=== PATIENT | male | born 1950 | race Caucasian/White ===

== ENCOUNTER 2024-09-23 09:39 | Outpatient (CLI) | payer OTHER, SELFPAY ==
--- OUTSIDE RECORDS SUMMARY | 2024-09-23 07:52 | XMS_ITS ---
[place] MED NUTRITION [place] SUB[place] [facility] Encounter Summary Created on: September 23, 2024 MILI SANTAMARIA : 1950 Sex: Male Author Name [facility] [place] [facility] [place] Address [address] [place] [address] Care Team Providers Care Tiltrotor Crew Chief Name Role Phone ROBBIE ANAY Primary Care Provider Riccardo rainey Insurance Providers: All historical and current Section Date Range: From patient's date of to the date document was created. This section includes the names of all active insurance providers for the patient. Insurance Provider Type of Coverage Plan Name Start of Policy Coverage End of Policy Coverage Group Number Member ID Insurance Provider's Telephone Number Policy Nicole's Name Patient's Relationship to Policy Nicole MEDICARE (WNR) MEDICARE (M) PART A Jul 07, 2013 PART A [id number] [phone] ARLETH SANTAMARIA PATIENT MEDICARE (WNR) MEDICARE (M) PART A Jul 07, 2013 PART A [id number] [phone] ARLETH SANTAMARIA PATIENT Selected Encounter This section includes the information on record at [place] for the Encounter. Date/Time Encounter Type Encounter Description Reason Provider Source Jul 10, 2024 11:30 AM MED NUTRITION INDIV SUBSEQ TELEPHONE/ANALI FLOYD ICD-10-CM E11.9 Type 2 diabetes mellitus without complications TIFFANY NAIR Encounter Template Text not used by [facility] Assessments - Encounter Diagnoses This section includes the primary and secondary diagnoses documented for the Encounter. Date/Time Primary/Secondary Diagnosis Diagnosis Name Provider Source Jul 10, 2024 11:30 AM PRIMARY Type 2 diabetes mellitus without complications TIFFANY NAIR [facility] Jul 10, 2024 11:30 AM SECONDARY Dietary counseling and surveillance TIFFANY NAIR [facility] Plan of Treatment: Future Appointments (+ 6 months) and Future Tests (+/- 45 days) The Plan of Treatment section includes future care activities for the patient from all [place] treatmentfacilities. This section includes future appointments and future orders which are active, pending or scheduled. Future Appointments This section includes appointments that were scheduled to occur 6 months from the date of the Encounter, up to a maximum of 20 appointments. The data comes from all [place] treatment facilities. Appointment Date/Time Appointment Type Appointme nt Facility Name Oct 12, 2024 08:00 AM AMBULATORY - MEDICINE [facility] Oct 12, 2024 08:40 AM AMBULATORY - MEDICINE [facility] Encounter Notes: All associated encounter notes This section contains the clinical notes associated to the Encounter. Date/Time Encounter Note(s) Provider Source Jul 10, 2024 10:31 AM NUTRITION NOTE: LOCAL TITLE: NUTRITION OUTPT PROGRESS NOTE STANDARD TITLE: NUTRITION NOTE DATE OF NOTE: JUL 10, 2024@10:31 ENTRY DATE: JUL 10, 2024@10:31:12 AUTHOR: TIFFANY NAIR EXP COSIGNER: URGENCY: STATUS: COMPLETED Visit Information: Delivery Method: Telephone Visit Type: Follow-up Visit Reason for visit: T2DM Time spent with [facility]: 18 minutes ASSESSMENT: states he switched to yogurt in AM to increase protein and is eating more salads. Tries to get out of the house between meals to avoid snacking. Continues to eat dessert most nights but choosing smaller portions. Asks for print versions of easy, diabetes-friendly recipes. Diet Recall: Meal 1: oatmeal, regular yogurt Meal 2: leftovers <or> sandwich, banana Meal 3: 3-4 oz meat, 1.5 cup potatoes, 1/2 plate salad Snack: 2/3 cup ice cream 3-4x/week Fluids: 6-8 cups black coffee, 2 quarts water w/electrolytes, occasional pop Labs HEMOGLOBIN A1C 8.3 H (04/13/24) Height: 70 in [177.8 cm] (03/07/2023 10:19) Weight: Measurement DT WEIGHT LB(KG)[BMI] 04/10/2024 11:07 199(90.26)[29*] Malnutrition Assessment (per AND/ASPEN Consensus Statement, 2012): Dietitian does not suspect malnutrition at this time, therefore, physical assessment not conducted Estimated Nutrient Intake: Carbohydrates 45g/meal, 30-45g/snack Comparative Standards: Carbohydrates 45g/meal, 0-15g/snack DIAGNOSIS: Active nutrition diagnosis Problem: Excessive carbohydrate intake Etiology: eating dessert after dinner most nights Signs/Symptoms: pt eating 30-45g carb/snack, A1c 8.3 INTERVENTION: Nutrition Prescription: carbohydrate-controlled diet Carbohydrate-modified diet: o Commended on progress made to reduce carbs in diet and encouraged to continue o Recommended having Bolivian yogurt instead of regular and educated on difference in carb and protein content o Encouraged reduce frequency of desserts and/or have small portion with a meal rather than several hours after to avoid blood glucose spike o Mailed sample recipes from [place] website per request Goal: 1 - will switch to Bolivian yogurt at breakfast 2 - [facility] will limit portion of ice cream to </= 30g carb equivalent Patient Education of Treatment Plan: Patient indicates readiness to learn, verbalizes understanding, agreement and satisfaction with the treatment plan. Denies further questions. MONITORING & EVALUATION: Goal(s): 1 - Hgb A1c <8.3 at next check Status: Goal not met, no new labs, ongoing 2 - Carbohydrate estimated intake in one meal: 45g by follow-up Status: Goal met 3 - Carbohydrate estimated intake in one meal (snack): <30g by follow-up Status: Some progress toward goal, ongoing Follow Up: [facility] declined to schedule follow-up today. Provided designer/writer's contact information and encouraged him to call with questions or if desires follow-up appointment in the future. /zach/ TIFFANY NAIR, MS, RDN, CDCES REGISTERED DIETITIAN Signed: 07/10/2024 12:59 TIFFANY NAIR [facility]
--- OUTSIDE RECORDS SUMMARY | 2024-09-23 07:52 | XMS_ITS | Encounter Summary ---
Author Name [facility] [place] [place] Organization [facility] [place] Address [address] [place] [address] Care Team Providers Care Senior Compliance Analyst Name Role Phone ANAY AVALOS Primary Care Provider Unavailabl redd Insurance Providers: All historical and current Section [...] PART A Jul 07, 2013 PART A [id number] [phone] ARLETH ACOSTA PATIENT MEDICARE (WNR) MEDICARE (M) PART A Jul 07, 2013 PART A [id number] 16A ARLETH ACOSTA PATIENT Selected Encounter This section includes the information on record at [place] for the Encounter. Date/Time Encounter Type Encounter Description Reason Provider Source Jul 16, 2024 09:56 AM Outpatient Encounter TELEPHONE/MEDICIN E ICD-10-CM I48.0 Paroxysmal atrial fibrillation YAS OCASIO [facility] Encounter Template Text not used by [place] Assessments - Encounter Diagnoses This section includes the primary and secondary diagnoses documented for the Encounter. Date/Time Primary/Secondary Diagnosis Diagnosis Name Provider Source Jul 16, 2024 09:56 AM PRIMARY Paroxysmal atrial fibrillation YAS OCASIO [facility] Jul 16, 2024 09:56 AM SECONDARY Atherosclerosis of CABG w/o angina pectoris YAS OCASIO [facility] Jul 16, 2024 09:56 AM SECONDARY Nonrheumatic aortic (valve) stenosis YAS OCASIO [facility] Plan of Treatment: Future Appointments (+ 6 months) and Future Tests (+/- 45 days) The Plan of Treatment section includes future care [facility] for the [facility] [place] [facility] This section includes future appointments and future orders which are active, pending or scheduled. Future Appointments This section includes appointments that were scheduled to occur 6 months from the date of the Encounter, up to a maximum of 20 appointments. The data comes from all [facility]. Appointment Date/Time Appointment Type Appointme nt Facility Name Oct 12, 2024 08:00 AM AMBULATORY - MEDICINE [facility] Oct 12, 2024 08:40 AM AMBULATORY - MEDICINE [facility] Social History: Smoking Status (Most current) and Tobacco Use (All prior to encounter date) This section includes the most current, and the historical, smoking and tobacco- related health factors from the [place] facility where the Encounter took place. Current Smoking Status This section includes the most current smoking, or tobacco-related health factor, from the [place] facility where the Encounter took place. Date/Time Current Smoking Status Comment Facil ity Mar 29, 2016 05:20 AM INPT NO TOBACCO USE IN LAST 30 D [facility] Encounter Notes: All associated encounter notes This section contains the clinical notes associated to the Encounter. Date/Time Encounter Note(s) Provider Source Jul 16, 2024 09:56 AM CARDIOLOGY CONSULT : LOCAL TITLE: CARDIAC CONSULT STANDARD TITLE: CARDIOLOGY CONSULT DATE OF NOTE: JUL 16, 2024@09:56 ENTRY DATE: JUL 16, 2024@09:56:40 AUTHOR: YAS OCASIO EXP COSIGNER: URGENCY: STATUS: COMPLETED TELEPHONE CONSULTATION Reason for consult: low-blood pressure HPI/ROS Mr. Acosta is a 74 year-old referred for low blood pressure. Pertinent PMH includes carpal tunnel syndrome, HLN, Aortic stenosis s/p AVR/CABG (2015), PAF, DM type II, and peripheral neuropathy. CARDIAC HISTORY: . Aortic stenosis s/p AVR (2015) with 25 mm Cooper pericardial bioprosthesis . CAD s/p CABG ( [facility] 2015) . Paroxysmal atrial fibrillation Spoke with Mr. Acosta and his Mariia via telephone conversation. On May 11, 2024, Cindi was seen in the ED at [facility]. Per report (no records are available), he had low blood pressure of 108/60. He was feeling fatigued. He was told to decrease the metoprolol from 100 mg bid to 50 mg bid. In addition, Amlodipine was decreased from 10 mg to 5 mg. When he contacted his PCP, Amlodipine was discontinued. Today, Mr. Acosta reports doing well. Mariia, tells me his has more energy and is more alert. Home BP recordings show: 117/70 HR 58, 126/72 HR 61. He continues to be active. Denies chest pain or dyspnea with exertion. Denies lightheadedness or dizziness. Denies palpitations. REVIEW OF SYSTEMS: Constitutional: Weight stable, denies fatigue Eyes: Denies visual changes. Ear, nose, mouth, throat: No complaints. Cardiovascular: Chest pain as described in HPI. Denies palpitations, Respiratory: Shortness of breath/CAMPBELL as described in HPI. Denies cough, pleuritic pain, orthopnea or PND Gastrointestinal: Appetite good, denies heartburn and indigestion. Urinary: Denies incontinence, frequency, urgency, nocturia, pain, or discomfort. Skin: No rashes or lesions. Neurological: Denies lightheadedness or dizziness. Denies syncope or pre-syncope. Psychiatric: Denies memory loss or depression. Mood pleasant. Allergies: TRAMADOL (Apr 05, 2016) Past Medical History - Computerized Problem list is source for: Active problems - Computerized Problem List is the source for the followin. Allergic rhinitis (SNOMED CT 46758058) 2. Carpal tunnel syndrome (SNOMED CT 32213509) 3. Hyperlipidemia 4. Aortic stenosis - aortic valve replacement 5. Paroxysmal atrial fibrillation 6. History of placement of stent for coronary artery disease 7. History of urinary tract infection 8. Diabetes Mellitus Type 2 ([facility] [id number]) 9. Exposure to potentially hazardous substance ([facility] [id number]) - Entered through [facility] Documentation Initiative 10. Peripheral sensory neuropathy due to type 2 diabetes mellitus - Neuropathy in bilateral feet and bilateral hands. Medications: Active Outpatient Medications (including Supplies): Active Outpatient Medications Status 1) AMOXICILLIN 500MG CAP TAKE FOUR CAPSULES BY MOUTH ACTIVE ONCE 60 MINUTES PRIOR TO DENTAL PROCEDURE. 2) APIXABAN 5MG TAB TAKE ONE TABLET BY MOUTH TWICE A DAY ACTIVE TO TREAT AND/OR PREVENT BLOOD CLOTS 3) ATORVASTATIN CALCIUM 20MG TAB TAKE ONE TABLET BY ACTIVE MOUTH EVERY DAY FOR CHOLESTEROL 4) CETIRIZINE HCL 10MG TAB TAKE ONE TABLET BY MOUTH ACTIVE EVERY DAY FOR ALLERGIES 5) EMPAGLIFLOZIN 25MG TAB TAKE ONE-HALF TABLET BY MOUTH ACTIVE EVERY MORNING FOR DIABETES 6) FOLIC ACID 1MG TAB TAKE ONE TABLET BY MOUTH DAILY ACTIVE 7) GABAPENTIN 300MG CAP TAKE ONE CAPSULE BY MOUTH AT ACTIVE BEDTIME FOR SLEEP, FOR NEUROPATHY 8) LIDOCAINE 5% OINT APPLY MODERATE AMOUNT TOPICALLY ACTIVE TWICE A DAY NEEDED FOR INCISIONAL AREA PAIN 9) METOPROLOL TARTRATE 50MG TAB TAKE ONE TABLET BY MOUTH ACTIVE EVERY 12 HOURS FOR BLOOD PRESSURE 10) NYSTATIN 416933 UNT/GM CREAM APPLY THIN LAYER ACTIVE TOPICALLY TWICE A DAY FOR YEAST INFECTION EXTERNAL USE ONLY 11) TAMSULOSIN HCL 0.4MG CAP TAKE ONE CAPSULE BY MOUTH ACTIVE EVERY DAY FOR PROSTATE Recent Available Lab Results: - CREATININE 0.8 (04/13/24) - UREA NITROGEN 23 (04/13/24) - SODIUM 138 (04/13/24) - CHLORIDE 107 (04/13/24) - POTASSIUM 4.0 (04/13/24) - CO2 24 (04/13/24) - GLUCOSE 213 H (04/13/24) - No data available - TSH ____ - HEMOGLOBIN A1C 8.3 H (04/13/24) - INR - NONE FOUND Lipid Profile: - CHOLESTEROL 130 (04/13/24) - HDL 43 (04/13/24) - LDL CALCULATION 72 (04/13/24) - TRIGLYCERIDE____ - Collection DT Spec WBC HGB HCT PLT MCV 04/13/2024 09:12 BLOOD 5.70 14.8 44.9 146 L 93.9 11/06/2023 09:42 BLOOD 7.03 16.5 49.2 174 93.4 DIAGNOSTICS/IMAGING/SCORING EK. Normal sinus rhythm Echocardiogram: Summary: 1. Left ventricular ejection fraction, by visual estimation, is 55 to 60%. 2. Mild to moderate concentric left ventricular hypertrophy. 3. Moderately dilated left atrium. 4. Pulmonary hypertension is mild. 5. Bioprosthetic valve in the aortic position with 9 mmHg gradient and no AI. 6. Similar findings were reported in 2016. Impression: Cardiology was asked to see this 74 year-old patient for low blood pressure. Medford's cardiac history includes s/p CABG/AVR w/bioprostetic valve in 2016. Also has paroxysmal Abib on anticoagulation. He has been told in the past he could stop his aspirin. However, he tells me he elected to continue as he feel better taking the aspirin. Since, lowering his blood pressure medication, his symptoms have improved. Reports feeling more alert and having more energy. #1 CAD s/p CABG (2016) #2 AVR w/bioprosethic valve (2016) #3 Atrial fibrillation/Aflutter - post-op (04/2016) Reports heart rates between 58-61. Given lower heart rates we had a discussion regarding lower his metoprolol vs continuing the current dose. The fact he is currently asymptomatic, would favor leaving the metoprolol at the current dose. But after further discussion, we (, and provider) decided to decrease the metoprolol to 25 mg bid. They will continue to track his blood pressure and HR. They will call the clinic in 1 week to discuss the readings. If blood pressure increase (>130's), they will restart the higher dose of metoprolol. Given his low BP issues have resolved with the decrease in medication, he is asymptomatic from a cardiac standpoint, further cardiology evaluation is unnecessary. and Mrs. Acosta agreed with this plan. Today's consult and recommendations discussed with him in lay-terms and he is in agreement with the above plan. Thank you for referring this to cardiology. *Total Time Spent: 120+ minutes. Chart review prior to visit, direct patient care, review of testing, coordination of care, and documentation of encounter. /zach/ ASTON DIXON CARDIOLOGY NURSE PRACTITIONER Signed: 07/16/2024 10:31 YAS OCASIO [facility]
--- OUTSIDE RECORDS SUMMARY | 2024-09-23 07:52 | XMS_ITS | Encounter Summary ---
Author Name [facility] [place] Address [address] [place] [address] Care Team Providers Care Editor City Name Role Phone ROBBIEANAY ISABEL Primary Care Provider Unavailabl e Insurance Providers: All historical and current Section [...] PART A Jul 07, 2013 PART A [id number] [phone] ARLETH SANTAMARIA PATIENT MEDICARE (WNR) MEDICARE (M) PART A Jul 07, 2013 PART A [id number] ARLETH SANTAMARIA PATIENT Selected Encounter This section includes the information on record at [place] for the Encounter. Date/Time Encounter Type Encounter Description Reason Pro vider Source Jul 08, 2024 11:30 AM Outpatient Encounter TELEPHONE/ANCILLARY IHE Encounter Template Text not used by [facility] Plan of Treatment: Future Appointments (+ 6 months) and Future Tests (+/- 45 days) The Plan of Treatment section includes future care activities for the patient from all [place] treatmentfacilities. This section includes future appointments and future orders which are active, pending or scheduled. Future Appointments This section includes appointments that were scheduled to occur 6 months from the date of the Encounter, up to a maximum of 20 appointments. The data comes from all [place] treatment facilities. Appointment Date/Time Appointment Type Appointme nt Facility Name Jul 10, 2024 11:30 AM AMBULATORY - NONE [facility] Oct 12, 2024 08:00 AM AMBULATORY - MEDICINE [facility] Oct 12, 2024 08:40 AM AMBULATORY - MEDICINE [facility] Encounter Notes: All associated encounter notes This section contains the clinical notes associated to the Encounter. Date/Time Encounter Note(s) Provider Source Jul 08, 2024 11:51 AM NO SHOW NOTE: LOCAL TITLE: NO SHOW/CANCELLATION CLINIC NOTE STANDARD TITLE: NO SHOW NOTE DATE OF NOTE: JUL 08, 2024@11:51 ENTRY DATE: JUL 08, 2024@11:51:10 AUTHOR: TIFFANY NAIR EXP COSIGNER: URGENCY: STATUS: COMPLETED SUBJECT: nutrition Patterson not seen for scheduled appointment due to: No Show Appointment Rescheduled: No RD called to conduct nutrition appointment x2, no answer. RD left with call back number. If Patterson contacts the clinic or call center to reschedule, please schedule in one of the following clinics per preference: Face to face: [facility] 1 By phone: [facility] TELEPHONE 1 [facility]: [facility] 1 /zach/ TIFFANY NAIR, MS, RDN, CDCES REGISTERED DIETITIAN Signed: 07/08/2024 12:02 Receipt Acknowledged By: 07/09/2024 08:34 /es/ [facility] 07/09/2024 07:26 /es/ TIFFANY [facility]
--- OUTSIDE RECORDS SUMMARY | 2024-09-23 07:52 | XMS_ITS | Encounter Summary ---
Author Name [facility] [place] Address [address] [place] [address] Care Team Providers Care Vacuum Tank Tender Name Role Phone ANAY AVALOS Primary Care Provider Unavailabl e Insurance Providers: [...] PART A Jul 07, 2013 PART A [id number] [phone] ARLETH SANTAMARIA PATIENT MEDICARE (WNR) MEDICARE (M) PART A Jul 07, 2013 PART A [id number] ARLETH SANTAMARIA PATIENT Selected Encounter This section includes the information on record at [place] for the Encounter. Date/Time Encounter Type Encounter Description Reason Pro vider Source Aug 06, 2024 09:27 AM Outpatient Encounter TELEPHONE PRIMARY CARE IHE Encounter Template Text not used by [place] Plan of Treatment: Future Appointments (+ 6 [...] 20 appointments. The data comes from all [place] treatment facilities. Appointment Date/Time Appointment Type Appointme nt Facility Name Oct 12, 2024 08:00 AM AMBULATORY - MEDICINE [facility] Oct 12, 2024 08:40 AM AMBULATORY - MEDICINE [facility] Social History: Smoking Status (Most current) and Tobacco Use (All prior to encounter date) This section includes the most current, and the historical, smoking and tobacco- related health factors from the [facility] facility where the Encounter took place. Current Smoking Status This section includes the most current smoking, or tobacco-related health factor, from the [facility] facility where the Encounter took place. Date/Time Current Smoking Status Comment Facil ity Mar 29, 2016 05:20 AM INPT NO TOBACCO USE IN LAST 30 D [facility] Encounter Notes: All associated encounter notes This section contains the clinical notes associated to the Encounter. Date/Time Encounter Note(s) Provider Source Aug 06, 2024 09:27 AM REPORT OF CONTACT: LOCAL TITLE: PATIENT CONTACT NOTE STANDARD TITLE: REPORT OF CONTACT DATE OF NOTE: AUG 06, 2024@09:27 ENTRY DATE: AUG 06, 2024@09:27:33 AUTHOR: LENNY MENDEZ EXP COSIGNER: URGENCY: STATUS: COMPLETED Patient contact Name of : HINAMILI BUENROSTRO Name/Relationship of Contact if other than : Date & Time of Contact: Jul@09:27 Type of Contact: Telephone Reason for Contact: Requesting to have PCP at the [facility]. Moss Picker explained that [facility] has specialty care available and to please call the clinic at number provided to review his needs. /zach/ LENNY MENDEZ REGISTERED NURSE Signed: 08/06/2024 09:30 LENNY MENDEZ [facility]
--- OUTSIDE RECORDS SUMMARY | 2024-09-23 07:52 | XMS_ITS | Encounter Summary ---
Author Name [facility] [place] [facility] [place] [facility] [place] Address [address] [place] [address] Care Team Providers Care Customer Resolution Specialist Name Role Phone TAMMIE FISHERYA Primary Care Provider Unavailclovis rainey Insurance Providers: All historical and current [...] PART A Jul 07, 2013 PART A [id number] [phone] ARLETH SANTAMARIA PATIENT MEDICARE (WNR) MEDICARE (M) PART A Jul 07, 2013 PART A [id number] ARLETH SANTAMARIA PATIENT Selected Encounter This section includes the information on record at [place] for the Encounter. Date/Time Encounter Type Encounter Description Reason Provider Source Jul 03, 2024 10:45 AM OFF/OP EST FEBRUARY X REQ PHY/QHP PRIMARY CARE/MEDICINE ICD-10-CM I95.9 Hypotension, unspecified HELGET,MARYLIN E L IHE Encounter Template Text not used by [place] Assessments - Encounter Diagnoses This section includes the primary and secondary diagnoses documented for the Encounter. Date/Time Primary/Secondary Diagnosis Diagnosis Name Provider Source Jul 03, 2024 03:41 PM PRIMARY Hypotension, unspecified HELGETMARYLIN E L [facility] Jul 03, 2024 03:41 PM SECONDARY Encounter for immunization MARYLIN RAMIREZ [facility] Plan of Treatment: Future Appointments (+ 6 months) and Future Tests (+/- 45 days) The Plan of Treatment section includes future care activities for the patient from all [place] treatmentfacilities. This section includes future appointments and future orders which are active, pending or scheduled. Future Appointments This section includes appointments that were scheduled to occur 6 months from the date of the Encounter, up to a maximum of 20 appointments. The data comes from all [place] treatment facilities. Appointment Date/Time Appointment Type Appointme nt Facility Name Jul 08, 2024 11:30 AM AMBULATORY - NONE [facility] Jul 10, 2024 11:30 AM AMBULATORY - NONE [facility] Oct 12, 2024 08:00 AM AMBULATORY - MEDICINE [facility] Oct 12, 2024 08:40 AM AMBULATORY - MEDICINE [facility] Vital Signs: All taken on the encounter date This section contains inpatient and outpatient Vital Signs collected on the date of the Encounter. Date/Time Temperature Pulse Blood Pressure Respiratory Rate SP02 Pain Height Weight Body Mass Index Source Jul 03, 2024 03:20 PM 98.5 64 125/77 16 98 0 [facility] Immunizations: All administered on the encounter date This section contains immunizations associated to the Encounter. Immunization Series Date Issued Reaction Comments COVID-19 (Handmark), MRNA, LNP -S, PF, MONIKA-SUCROSE, 30 MCG/0.3 ML (AGES 12+ YEARS) Jul 03, 2024 Social History: Smoking Status (Most current) and Tobacco Use (All prior to encounter date) This section includes the most current, and the historical, smoking and tobacco- related health factors from the [place] facility where the Encounter took place. Current Smoking Status This section includes the most current smoking, or tobacco-related health factor, from the [place] facility where the Encounter took place. Date/Time Current Smoking Status Comment Allan cantu Apr 10, 2024 11:00 AM FORMER SMOKER - <1 00 LIFETIME CIGARETTES [facility] Tobacco Use History This section includes a history of the smoking, or tobacco-related health factors, that were collected on or before the date of the Encounter. The data comes from the [place] facility where the Encounter took place. Date/Time Smoking Status/Tobacco Use Comment [facility] Mar 07, 2023 10:00 AM VA-TOBACCO FORMER USER [facility] Mar 07, 2023 10:00 AM VA-TOBACCO QUIT [address] [facility] Mar 16, 2022 08:30 AM VA-TOBACCO FORMER USER [facility] Mar 16, 2022 08:30 AM VA-TOBACCO QUIT [address] [facility] February 13, 2021 10:00 AM VA-TOBACCO NEVER USED [facility] Mar 21, 2020 11:28 AM VA-TOBACCO NEVER USED [facility] Mar 25, 2019 01:07 PM VA-TOBACCO NEVER USED [facility] February 14, 2018 02:54 PM LIFETIME NON-TOBACCO USER [facility] Mar 08, 2017 11:18 AM LIFETIME NON-TOBACCO USER [facility] Jan 23, 2016 08:04 AM LIFETIME NON-TOBACCO USER [facility] Aug 02, 2014 10:35 AM FORMER TOBACCO USER 7Y OR PAR[address] R [facility] Jul 31, 2013 09:53 AM FORMER TOBACCO USER 7Y OR GRE[address] R [facility] Encounter Notes: All associated encounter notes This section contains the clinical notes associated to the Encounter. Date/Time Encounter Note(s) Provider Source Jul 03, 2024 03:21 PM NURSING OUTPATIENT NOTE: LOCAL TITLE: [facility] NURSING RN NOTE STANDARD TITLE: NURSING OUTPATIENT NOTE DATE OF NOTE: JUL 03, 2024@15:21 ENTRY DATE: JUL 03, 2024@15:21:23 AUTHOR: LEXUS RAMIREZ COSIGNER: URGENCY: STATUS: [facility] NURSING RN NOTE Has ADDENDA TYPE OF VISIT: Nurse Clinic REASON FOR VISIT: here in clinic for a COVID-19 shot (please see documentation as stated below). states that he continues to have concerns with a low BP and P at home (please see nursing DC note from music writer dated 05/18/24). states that he continues to have low readings at home (averages low 100s systolic over low 60s diastolic). [place] states that his energy level still hasn't been the same though these past few months and he is thinking it is related to his BP. He likes to stay very active with woodworking and building so states that he doesn't like being this fatigued. Denies any SOB, difficulty breathing, chest pain, chest pressure, or any severe/life-threatening s/s. Amy does have a hx of CAD, paroximal afib s/p AVR/CABG 2015 and has been followed by Cardiology in the past. He continues to take the 5 mg of Amlodipine daily (had recently been switched from 10 mg to 5 mg daily) and also continues the 50 mg BID of Metoprolol Tartrate. Seafood Team Member consulted with PCP Anay Fisher who states that at this time, she would like for Amy to DC his 5 mg of Amlodipine and would like to refer Amy to Cardiology for further input and guidance. Amy is in agreeance to doing so and was appreciative. Amy was encouraged to continue to monitor his blood pressure in which he states he would do so. Amy was instructed to let clinic know if BP gets above 140/90 or below 110/60. Amy verbalized understanding and stated that he would do so. No further questions or concerns at this time, aware to call back should any arise. Emergent symptoms were discussed with amy in which he also verbalized understanding too. ALLERGIES: FACILITY ALLERGY/ADR -------- No Remote Allergy/ADR Data available for this patient [facility] TRAMADOL VITAL SIGNS: Blood Pressure: 125/77 (07/03/2024 15:20) Pulse: 64 (07/03/2024 15:20) Respiration: 16 (07/03/2024 15:20) Temperature: 98.5 F [36.9 C] (07/03/2024 15:20) Weight: 200.7 lb [91.04 kg] (05/18/2024 10:48) Height: 70 in [177.8 cm] (03/07/2023 10:19) BMI: 28.9 O2 Sat: 98% (07/03/2024 15:20) Pain: 0 (07/03/2024 15:20) MEDICATION Active Outpatient Medications (including Supplies): AMLODIPINE BESYLATE 5MG TAB TAKE ONE TABLET BY MOUTH EVERY ACTIVE DAY FOR BLOOD PRESSURE AMOXICILLIN 500MG CAP TAKE FOUR CAPSULES BY MOUTH ONCE 60 ACTIVE MINUTES PRIOR TO DENTAL PROCEDURE. APIXABAN 5MG TAB TAKE ONE TABLET BY MOUTH TWICE A DAY TO ACTIVE TREAT AND/OR PREVENT BLOOD CLOTS ATORVASTATIN CALCIUM 20MG TAB TAKE ONE TABLET BY MOUTH ACTIVE EVERY DAY FOR CHOLESTEROL CETIRIZINE HCL 10MG TAB TAKE ONE TABLET BY MOUTH EVERY DAY ACTIVE FOR ALLERGIES EMPAGLIFLOZIN 25MG TAB TAKE ONE-HALF TABLET BY MOUTH EVERY ACTIVE MORNING FOR DIABETES FOLIC ACID 1MG TAB TAKE ONE TABLET BY MOUTH DAILY ACTIVE GABAPENTIN 300MG CAP TAKE ONE CAPSULE BY MOUTH AT BEDTIME ACTIVE FOR SLEEP, FOR NEUROPATHY LIDOCAINE 5% OINT APPLY MODERATE AMOUNT TOPICALLY TWICE A ACTIVE DAY NEEDED FOR INCISIONAL AREA PAIN METOPROLOL TARTRATE 50MG TAB TAKE ONE TABLET BY MOUTH ACTIVE EVERY 12 HOURS FOR BLOOD PRESSURE NYSTATIN [id number] UNT/GM CREAM APPLY THIN LAYER TOPICALLY ACTIVE TWICE A DAY FOR YEAST INFECTION EXTERNAL USE ONLY TAMSULOSIN HCL 0.4MG CAP TAKE ONE CAPSULE BY MOUTH EVERY ACTIVE DAY FOR PROSTATE PLAN: - will follow the above stated information - will call [facility] with any questions/concerns - will DC his 5 mg of amlodipine -[place] will continue to monitor BP as directed and record readings - referred to cardiology -[place] will seek emergent attention for any severe/life-threatening s/s -[place] is in agreeance with above plan of care and had no other questions/concerns at this time and stated that he would call back if he did. For any severe/life-threatening s/s-->ER *Alerting PCP Anay Fisher for cosign as well as to please DC [place]'s 5 mg of Amlodipine, if still appropriate. /zach/ LEXUS RAMIREZ REGISTERED NURSE Signed: 07/03/2024 15:41 Receipt Acknowledged By: 07/06/2024 15:28 /zach/ ANAY FISHER TANNING DRUM OPERATOR,DNP,INTERNET MARKETING DIRECTOR-C 07/03/2024 ADDENDUM STATUS: COMPLETED COVID-19 Immunization: CDC Interim Clinical Considerations for Use of COVID-19 Vaccines in [facility] COVID-19 Vaccine SharePoint Pfizer Monovalent (Comirnaty) Administered: COVID-19 (PFIZER), MRNA, LNP-S, PF, MONIKA-SUCROSE, 30 MCG/0.3 ML (AGES 12+ YEARS) Date Administered: Jul 03, 2024 10:45 Replanting Machine Operator: Handmark, ReturnHauler Lot: [id number] Exp Date: Jan 02, 2025 [facility]: [id number] Admin Route/Site: INTRAMUSCULAR/RIGHT DELTOID Dosage: 0.3mL Vaccine Information Statement(s): COVID-19 MRNA VACCINE (12+ YRS) VACCINE VIS Jul 25, 2023 (MARTINIQUAIS) Order By: Policy Administered By: Lexus Ramirez Vaccine administered without complications. Tolerated well, informational sheet given to [place]. stayed appropriate amount time in clinic to ensure no reactions before leaving [facility]. Aware to call [facility] in the meantime if any questions/concerns arise. For any severe/life- threatening s/s-->ER /es/ LEXUS RAMIREZ REGISTERED NURSE Signed: 07/03/2024 15:43 LEXUS RAMIREZ [facility]
--- OUTSIDE RECORDS SUMMARY | 2024-09-23 07:52 | XMS_ITS | Encounter Summary ---
Author Name [facility] [place] [place] Organization [facility] [place] Address [address] [place] [address] Care Team Providers Care Medical Billing Associate Name Role Phone ANAY AVALOS Primary Care [...] PART A Jul 07, 2013 PART A [id number] [phone] ARLETH SANTAMARIA PATIENT MEDICARE (WNR) MEDICARE (M) PART A Jul 07, 2013 PART A [id number] 16A [phone] ARLETH SANTAMARIA PATIENT Selected Encounter This section includes the information on record at [place] for the Encounter. Date/Time Encounter Type Encounter Description Reason Provider Source Jul 02, 2024 03:00 PM IMMUNIZATION ADMIN PRIMARY CARE/MEDICINE ICD-10-CM Z23 Encounter for immunization LEISA RAMIREZ Jaclyn Encounter Template Text not used by [place] Assessments - Encounter Diagnoses This section includes the primary and secondary diagnoses documented for the Encounter. Date/Time Primary/Secondary Diagnosis Diagnosis Name Provider Source Jul 02, 2024 03:01 PM PRIMARY Encounter for immunization MARYLIN RAMIREZ [facility] Plan of Treatment: Future Appointments (+ 6 months) and Future Tests (+/- 45 days) The Plan of Treatment section includes future care activities for the patient [facility] [place] [facility]. This section includes future appointments and future orders which are active, pending or scheduled. Future Appointments This section includes appointments that were scheduled to occur 6 months from the date of the Encounter, up to a maximum of 20 appointments. The data comes from all [place] treatment facilities. Appointment Date/Time Appointment Type Appointme nt Facility Name Jul 03, 2024 10:45 AM AMBULATORY - MEDICINE [facility] Jul 08, 2024 11:30 AM AMBULATORY - NONE [facility] Jul 10, 2024 11:30 AM [facility]ORY - NONE [facility] Oct 12, 2024 08:00 AM AMBULATORY - MEDICINE [facility] Oct 12, 2024 08:40 AM AMBULATORY - MEDICINE [facility] Immunizations: All administered on the encounter date This section contains immunizations associated to the Encounter. Immunization Series Date Issued Reaction Comments INFLUENZA, HIGH-DOSE, TRIVALENT, PF Jul 02 Social History: Smoking Status (Most current) and Tobacco Use (All prior to encounter date) This section includes the most current, and the historical, smoking and tobacco- related health factors from the [place] facility where the Encounter took place. Current Smoking Status This section includes the most current smoking, or tobacco-related health factor, from the [place] facility where the Encounter took place. Date/Time Current Smoking Status Comment Allan cantu Apr 10, 2024 11:00 AM FORMER SMOKER - <1 00 LIFETIME CIGARETTES [facility] Tobacco Use History This section includes a history of the smoking, or tobacco-related health factors, that were collected on or before the date of the Encounter. The data comes from the [place] facility where the Encounter took place. Date/Time Smoking Status/Tobacco Use Comment F acility Mar 07, 2023 10:00 AM VA-TOBACCO FORMER USER [facility] Mar 07, 2023 10:00 AM [place]-TO[place]ACCO QUIT 15 YRS OR MORE [facility] Mar 16, 2022 08:30 AM VA-TOBACCO FORMER USER [facility] Mar 16, 2022 08:30 AM [place]-TOBACCO QUIT 15 YRS OR MORE [facility] February 13, 2021 10:00 AM [place]-TOBACCO NEVER USED [facility] Mar 21, 2020 11:28 AM [place]-TOBACCO NEVER USED [facility] Mar 25, 2019 01:07 PM VA-TOBACCO NEVER USED [facility] February 14, 2018 02:54 PM LIFETIME NON-TOBACCO USER [facility] Mar 08, 2017 11:18 AM LIFETIME NON-TOBACCO USER [facility] Jan 23, 2016 08:04 AM LIFETIME NON-TOBACCO USER [facility] Aug 02, 2014 10:35 AM FORMER TOBACCO USER 7Y OR GREATE R [facility] Jul 31, 2013 09:53 AM FORMER TOBACCO USER 7Y OR PARAG R [facility] Encounter Notes: All associated encounter notes This section contains the clinical notes associated to the Encounter. Date/Time Encounter Note(s) Provider Source Jul 02, 2024 03:00 PM IMMUNIZATION NOTE: LOCAL TITLE: INFLUENZA VACCINATION STANDARD TITLE: IMMUNIZATION NOTE DATE OF NOTE: JUL 02, 2024@15:00 ENTRY DATE: JUL 02, 2024@15:00:16 AUTHOR: MAC RAMIREZ EXP COSIGNER: URGENCY: STATUS: COMPLETED Influenza, High-Dose, Trivalent, Preservative Free (Fluzone-Syringe) Administered: INFLUENZA, HIGH-DOSE, TRIVALENT, PF Date Administered: Jul 02, 2024 15:00 Whitewasher: SANOFI PASTEUR Lot: [id number] Exp Date: Apr 05, 2025 [facility]: [id number] Admin Route/Site: INTRAMUSCULAR/LEFT DELTOID Dosage: 0.5mL Vaccine Information Statement(s): INFLUENZA(FLU) VACC(INACTIVATED OR RECOMBINANT)VIS May 12, 2021 (ANDORRAN) Order By: Policy Administered By: Mac Ramirez The Influenza Vaccine Information Statement (VIS) was reviewed with the patient/caregiver which lists the benefits and risks of the vaccine and the risks of not receiving the Influenza vaccine. The patient/caregiver denied any prior severe reaction to this vaccine or its components or a severe allergic reaction, such as anaphylaxis, to any vaccine or any injectable therapy. The patient/caregiver gave verbal consent to receive the vaccine. Tolerated well, informational sheet given to Blodgett. Blodgett stayed appropriate amount time in clinic to ensure no reactions before leaving [facility]. Aware to call [facility] in the meantime if any questions/concerns arise. For any severe/life- threatening s/s-->ER /es/ MAC RAMIREZ REGISTERED NURSE Signed: 07/02/2024 15:01 MAC RAMIREZ [facility]
--- OUTSIDE RECORDS SUMMARY | 2024-09-23 07:52 | XMS_ITS | Continuity of Care Document ---
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 It does not include entries that were removed or entered in error. Problem Status Onset Date Problem Type Date of Resolution Comments Source Exposure to potentially hazardous substance (SCT [id number]) Active 12/12/19 24 Condition Dec 12, 2023 Entered By: BRADLEY LEÓN Comment: [facility] Documentation Initiative [facility] Aortic stenosis Active 10/07/19 14 Condition Mar 08, 2017 Entered By: KALEB CARABALLO Comment: aortic valve replacement [facility] Hyperlipidemia Active 10/07/[address] [facility] Allergic rhinitis (SNOMED CT 23906522) Active Condition [facility] Carpal tunnel syndrome (SNOMED CT 06856825) Active Condition [facility] Diabetes Mellitus Type 2 (SCT 23891908) Active Condition [facility] History of placement of stent for coronary artery disease Active Condition [facility] History of urinary tract infection Active Condition 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 [facility] Diagnosis: ICD-10-CM I48.0 Paroxysmal atrial fibrillation Active Diagnosis [facility] Diagnosis: ICD-10-CM E11.9 Type 2 diabetes mellitus without complications Active Diagnosis [facility] Diagnosis: ICD-10-CM I95.9 Hypotension, unspecified Active Diagnosis [facility] Diagnosis: ICD-10-CM Z23 Encounter for immunization Active Diagnosis 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 Diagnosis: ICD-10-CM Z77.021 Contact with and (suspected) exposure to benzene Active Diagnosis [facility] Medications Combined list of outpatient medications from Department of Defense and Veterans Affairs facilities.Medications provided include 1) outpatient medications from the last 15 months, and 2) patient-reported medications. Medication Details Route Status Patient Instructions Prescription Expires Prescription Number Last Dispense Date Ordering Provider Order Date Order Qty Source AMLODIPINE BESYLATE 10MG TAB TAKE ONE TABLET BY MOUTH EVERY DAY ORAL DISCONT INUED (EDIT) 02/24/2025 [id number] TAMMIE AVALOS [address] [facility] AMLODIPINE BESYLATE 10MG TAB TAKE ONE TABLET BY MOUTH EVERY DAY ORAL DISCONT INUED 03/07/2024 [id number] KWAME PIÑA [address] [place] [address] AMLODIPINE BESYLATE 5MG TAB TAKE ONE TABLET BY MOUTH EVERY DAY FOR BLOOD PRESSURE ORAL DISCONT INUED BY PROVIDE R 05/20/2025 [id number] 4 TAMMIE AVALOS [address] [place] [address] AMOXICILLIN TRIHYDRATE 500MG CAP TAKE FOUR CAPSULES BY MOUTH ONCE 60 MINUTES PRIOR TO DENTAL PROCEDUR E. ORAL ACTIVE 11/15/2024 [id number] BENI RAMIREZ [address] [facility] APIXABAN 5MG TAB TAKE ONE TABLET BY MOUTH TWICE A DAY TO TREAT AND/OR PREVENT BLOOD CLOTS ORAL ACTIVE 05/26/2025 [id number] 4 JEREMIAS CANALES [address] [facility] APIXABAN 5MG TAB TAKE ONE TABLET BY MOUTH TWICE A DAY TO TREAT AND/OR PREVENT BLOOD CLOTS ORAL DISCONT INUED 06/04/2024 [id number] 4 JEREMIAS CANALES [address] [facility] ATORVASTATI N CA 20MG TAB TAKE ONE TABLET BY MOUTH EVERY DAY FOR CHOLESTE ROL ORAL ACTIVE 04/11/2025 [id number] TAMMIE AVALOS [address] [facility] ATORVASTATI N CA 20MG TAB TAKE ONE TABLET BY MOUTH EVERY DAY FOR CHOLESTE ROL ORAL DISCONT INUED 04/11/2025 [id number] 4 TAMMIE AVALOS [address] [facility] ATORVASTATI N CA 20MG TAB TAKE ONE TABLET BY MOUTH EVERY DAY FOR CHOLESTE ROL ORAL DISCONT INUED 03/07/2024 [id number] KWAME PIÑA [address] [facility] CETIRIZINE HCL 10MG TAB TAKE ONE TABLET BY MOUTH EVERY DAY FOR ALLERGIE S ORAL ACTIVE 02/24/2025 [id number] 4 TAMMIE AVALOS [address] [facility] CETIRIZINE HCL 10MG TAB TAKE ONE TABLET BY MOUTH EVERY DAY FOR ALLERGIE S ORAL DISCONT INUED 03/07/2024 [id number] 4 KWAME PIÑA [address] [facility] EMPAGLIFLOZ IN 25MG TAB TAKE ONE-HALF TABLET BY MOUTH EVERY MORNING FOR DIABETES ORAL ACTIVE 02/24/2025 [id number] 4 TAMMIE AVALOS [address] [facility] EMPAGLIFLOZ IN 25MG TAB TAKE ONE-HALF TABLET BY MOUTH EVERY MORNING FOR DIABETES ORAL DISCONT INUED 02/24/2025 [id number] 4 TAMMIE AVALOS [address] [facility] EMPAGLIFLOZ IN 25MG TAB TAKE ONE-HALF TABLET BY MOUTH EVERY MORNING FOR DIABETES ORAL DISCONT INUED 03/10/2024 [id number] 4 KWAME PIÑA 2022 45 [facility] FOLIC ACID 1MG TAB TAKE ONE TABLET BY MOUTH DAILY ORAL ACTIVE 02/24/2025 [id number] 4 TAMMIE AVALOS [address] [facility] FOLIC ACID 1MG TAB TAKE ONE TABLET BY MOUTH DAILY ORAL DISCONT INUED 02/27/2024 [id number] 4 ALEX VEGA [address] [facility] GABAPENTIN 300MG CAP TAKE ONE CAPSULE BY MOUTH AT BEDTIME FOR SLEEP, FOR NEUROPAT HY ORAL ACTIVE 04/11/2025 [id number] 4 TAMMIE AVALOS [address] [facility] GABAPENTIN 300MG CAP TAKE ONE CAPSULE BY MOUTH AT BEDTIME FOR SLEEP, FOR NEUROPAT HY ORAL DISCONT INUED 03/07/2024 [id number] 4 KWAME PIÑA [address] [facility] LIDOCAINE 5% OINT,TOP APPLY MODERATE AMOUNT TOPICALL Y TWICE A DAY NEEDED FOR INCISION AL AREA PAIN TOPICA L ACTIVE 08/29/2025 [id number] 4 BENI RAMIREZ [address] [facility] LIDOCAINE 5% OINT,TOP APPLY MODERATE AMOUNT TOPICALL Y TWICE A DAY NEEDED FOR INCISION AL AREA PAIN TOPICA L DISCONT INUED 08/20/2024 [id number] BENI RAMIREZ [address] [facility] METOPROLOL TARTRATE 100MG TAB TAKE ONE TABLET BY MOUTH EVERY 12 HOURS ORAL DISCONT INUED (EDIT) 04/11/2025 [id number] 4 TAMMIE AVALOS [address] [facility] METOPROLOL TARTRATE 100MG TAB TAKE ONE TABLET BY MOUTH EVERY 12 HOURS ORAL DISCONT INUED 03/07/2024 [id number] 4 KWAME PIÑA [address] [facility] METOPROLOL TARTRATE 50MG TAB TAKE ONE TABLET BY MOUTH EVERY 12 HOURS FOR BLOOD PRESSURE ORAL ACTIVE 05/20/2025 [id number] 4 TAMMIE AVALOS [address] 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 TAMSULOSIN HCL 0.4MG CAP TAKE ONE CAPSULE BY MOUTH EVERY DAY FOR PROSTATE ORAL ACTIVE 04/11/2025 [id number] 4 ROBBIETAMMIE ISABEL LEILA D [address] [facility] TAMSULOSIN HCL 0.4MG CAP TAKE ONE CAPSULE BY MOUTH DAILY ORAL DISCONT INUED (EDIT) 06/17/2024 [id number] KWAME PIÑA [address] [facility] TAMSULOSIN HCL 0.4MG CAP TAKE ONE CAPSULE BY MOUTH DAILY ORAL DISCONT INUED 03/07/2024 [id number] 3 KWAME PIÑA [address] [facility] Allergies, Adverse Reactions, Alerts Combined list of allergies from Department of Defense and Veterans Affairs facilities. It does not include entries that were removed or entered in error. Substance Category Reaction Severity Reaction type Status Date Reported Comments Source TRAMADOL Propensity to adverse reactions to drug (finding) Hallucinatio ns active 6 [facility] Immunizations Combined list of available immunizations from the Department of Defense and Veterans Affairs facilities. Immunization Series Date Given Administered By Site Reaction Lot Number CVX Code Drug Hr Recruiter Status Comments Source COVID-19 (PFIZER), MRNA, LNP-S, PF, MONIKA-SUCROSE, 30 MCG/0.3 ML (AGES 12+ YEARS) 2023 LEISA RAMIREZ RIGHT DELTO ID [id number] [address] [facility] INFLUENZA, HIGH-DOSE, TRIVALENT, PF 2023 LEISA RAMIREZ LEFT DELTO ID [id number] [address] [facility] TDAP 2023 NITIN PEREZ LEFT DELTO ID [id number] [address] [facility] INFLUENZA, HIGH-DOSE, QUADRIVALENT 2023 PALOMA LOPEZ RIGHT DELTO ID [id number] 197 complet ed [facility] COVID-19 (MODERNA), MRNA, LNP-S, BIVALENT, PF, 50 MCG/0.5 ML OR 25MCG/0.25 ML DOSE 2021 229 complet ed was moderna not pfizer, at isidoro drug [facility] COVID-19 (PFIZER), MRNA, LNP-S, BIVALENT BOOSTER, PF, 30 MCG/0.3 ML DOSE 1 [address] [facility] INFLUENZA VACCINE, QUADRIVALENT, ADJUVANTED [address] [facility] COVID-19 (MODERNA), MRNA, LNP-S, PF, 100 MCG/0.5ML DOSE OR 50 MCG/0.25ML DOSE 3 [address] [facility] INFLUENZA, INJECTABLE, QUADRIVALENT, PRESERVATIVE FREE [address] [facility] COVID-19 (MODERNA), MRNA, LNP-S, PF, 100 MCG/0.5 ML DOSE 2 2020 207 complet ed MOD: [id number]; 1 [facility] COVID-19 (MODERNA), MRNA, LNP-S, PF, 100 MCG/0.5 ML DOSE 1 2020 207 complet ed MOD; [id number]; 1 [facility] INFLUENZA, INJECTABLE, QUADRIVALENT, PRESERVATIVE FREE [address] [facility] ZOSTER RECOMBINANT 2 [address] [facility] ZOSTER RECOMBINANT 1 [address] [facility] PNEUMOCOCCAL POLYSACCHARID E [id number] 2016 33 complet ed [employer] Lot#[id number] Exp. February 16, 2018 [facility] INFLUENZA, HIGH DOSE SEASONAL [address] [facility] PNEUMOCOCCAL CONJUGATE PCV 13 2015 133 complet ed Pfizer Lot#[id number] Exp. 02/2017 [facility] INFLUENZA, HIGH DOSE SEASONAL [address] [facility] INFLUENZA, UNSPECIFIED FORMULATION [address] [facility] INFLUENZA, UNSPECIFIED FORMULATION [address] [facility] TDAP 2012 115 complet ed [employer] Lot#[id number] Exp. 07/15/2015 [facility] Results Combined list of recent chemistry, hematology and other laboratory results from Department of Defense and Veterans Affairs, ranging from 15 months to all on record, depending upon the facility. Order Name Results Value Reference Range Date Interpretation Specimen Comments Source ALBUMIN/C REATININE RATIO URINE CREATININE [MASS/VOLUM E] IN URINE 37.9 mg/dL 58.0 - 161.0 04/13 L Specimen Type: URINE No comment entered. Ordering Provider: ANAY AVALOS Report Released Date/Time: Apr 10, 2024 11:32 AM Reporting Lab: [facility] [address] Performing Lab: [facility] [address] [facility] ALBUMIN/C REATININE RATIO URINE MICROALBUMI N/CREATININ E [MASS RATIO] IN URINE 20.6 mg/g{c reat} <29.9 - 29.9 04/13 Specimen Type: URINE No comment entered. Ordering Provider: ANAY AVALOS Report Released Date/Time: Apr 10, 2024 11:32 AM Reporting Lab: [facility] [address] Performing Lab: [facility] [address] [facility] ALBUMIN/C REATININE RATIO URINE MICROALBUMI N [MASS/VOLUM E] IN URINE 7.8 mg/L <29.9 - 29.9 04/13 Specimen Type: URINE No comment entered. Ordering Provider: ANAY AVALOS Report Released Date/Time: Apr 10, 2024 11:32 AM Reporting Lab: [facility] [address] Performing Lab: [facility] [address] [facility] HEMOGLOBI N A1C HEMOGLOBIN A1C/HEMOGLO BIN.TOTAL IN BLOOD 8.3 4.0 - 6.0 04/13 H Specimen Type: BLOOD Comment: Values obtained from A1C measurement s can vary. For typical A1C assays, a reported value of 7.0 could actually be between 6.7 and 7.3 if measured by a reference method. A reported value of 9.0 could actually be between 8.7 and 9.3. Ref: http://www. ngsp.org/[place] Pdata.asp Ordering Provider: ANAY AVALOS Report Released Date/Time: Apr 10, 2024 11:32 AM Reporting Lab: [facility] [address] Performing Lab: [facility] [address] [facility] LIPID PANEL,NON -FASTING CHOLESTEROL [MASS/VOLUM E] IN SERUM OR PLASMA 130 mg/dL <199 - 199 04/13 Specimen Type: PLASMA No comment entered. Ordering Provider: ANAY AVALOS Report Released Date/Time: Apr 10, 2024 11:32 AM Reporting Lab: [facility] [address] Performing Lab: [facility] [address] [facility] LIPID PANEL,NON -FASTING CHOLESTEROL IN HDL [MASS/VOLUM E] IN SERUM OR PLASMA 43 mg/dL 40 04/13 Specimen Type: PLASMA No comment entered. Ordering Provider: ANAY AVALOS Report Released Date/Time: Apr 10, 2024 11:32 AM Reporting Lab: [facility] [address] Performing Lab: [facility] [address] [facility] LIPID PANEL,NON -FASTING CHOLESTEROL IN LDL [MASS/VOLUM E] IN SERUM OR PLASMA BY CALCULATION 72 mg/dL <99 - 99 04/13 Specimen Type: PLASMA No comment entered. Ordering Provider: ANAY AVALOS Report Released Date/Time: Apr 10, 2024 11:32 AM Reporting Lab: [facility] [address] Performing Lab: [facility] [address] [facility] LIPID PANEL,NON -FASTING CHOLESTEROL IN VLDL [MASS/VOLUM E] IN SERUM OR PLASMA BY CALCULATION 15 mg/dL <29 - 29 04/13 Specimen Type: PLASMA No comment entered. Ordering Provider: ANAY AVALOS Report Released Date/Time: Apr 10, 2024 11:32 AM Reporting Lab: [facility] [address] Performing Lab: [facility] [address] [facility] LIPID PANEL,NON -FASTING CHOLESTEROL NON HDL [MASS/VOLUM E] IN SERUM OR PLASMA 87 mg/dL <129 - 129 04/13 Specimen Type: PLASMA No comment entered. Ordering Provider: ANAY AVALOS Report Released Date/Time: Apr 10, 2024 11:32 AM Reporting Lab: [facility] [address] Performing Lab: [facility] [phone] [place] [address] LIPID PANEL,NON -FASTING TRIGLYCERID E [MASS/VOLUM E] IN SERUM OR PLASMA 73 mg/dL <149 - 149 04/13 Specimen Type: PLASMA No comment entered. Ordering Provider: ANAY AVALOS Report Released Date/Time: Apr 10, 2024 11:32 AM Reporting Lab: [facility] [address] Performing Lab: [facility] [phone] [place] [address] CBC LEUKOCYTES [#/VOLUME] IN BLOOD BY AUTOMATED COUNT 5.70 10*3/u L 4.0 - 11.0 04/13 Specimen Type: BLOOD No comment entered. Ordering Provider: ANAY AVALOS Report Released Date/Time: Apr 10, 2024 11:32 AM Reporting Lab: [facility] [address] Performing Lab: [facility] [address] [facility] CBC ERYTHROCYTE S [#/VOLUME] IN BLOOD BY AUTOMATED COUNT 4.78 10*6/u L 4.6 - 6.2 04/13 Specimen Type: BLOOD No comment entered. Ordering Provider: ANAY AVALOS Report Released Date/Time: Apr 10, 2024 11:32 AM Reporting Lab: [facility] [address] Performing Lab: [facility] [address] [facility] CBC HEMOGLOBIN [MASS/VOLUM E] IN BLOOD 14.8 g/dL 13.5 - 17.9 04/13 Specimen Type: BLOOD No comment entered. Ordering Provider: ANAY AVALOS Report Released Date/Time: Apr 10, 2024 11:32 AM Reporting Lab: [facility] [address] Performing Lab: [facility] [address] [facility] CBC HEMATOCRIT [VOLUME FRACTION] OF BLOOD BY AUTOMATED COUNT 44.9 41 - 54 04/13 Specimen Type: BLOOD No comment entered. Ordering Provider: ANYA AVALOS Report Released Date/Time: Apr 10, 2024 11:32 AM Reporting Lab: [facility] [address] Performing Lab: [facility] [address] [facility] CBC MCV [ENTITIC VOLUME] BY AUTOMATED COUNT 93.9 fL 80 - 100 04/13 Specimen Type: BLOOD No comment entered. Ordering Provider: ANAY AVALOS Report Released Date/Time: Apr 10, 2024 11:32 AM Reporting Lab: [facility] [address] Performing Lab: [facility] [address] [facility] CBC MCH [ENTITIC MASS] BY AUTOMATED COUNT 31.0 pg 27 - 33 04/13 Specimen Type: BLOOD No comment entered. Ordering Provider: ANAY AVALOS Report Released Date/Time: Apr 10, 2024 11:32 AM Reporting Lab: [facility] [address] Performing Lab: [facility] [address] [facility] CBC MCHC [MASS/VOLUM E] BY AUTOMATED COUNT 33.0 g/dL 32.0 - 37.5 04/13 Specimen Type: BLOOD No comment entered. Ordering Provider: ANAY AVALOS Report Released Date/Time: Apr 10, 2024 11:32 AM Reporting Lab: [facility] [address] Performing Lab: [facility] [address] [facility] CBC PLATELETS [#/VOLUME] IN BLOOD BY AUTOMATED COUNT 146 10*3/u L 150 - 400 04/13 L Specimen Type: BLOOD No comment entered. Ordering Provider: ANAY AVALOS Report Released Date/Time: Apr 10, 2024 11:32 AM Reporting Lab: [facility] [address] Performing Lab: [facility] [address] [facility] CBC PLATELET MEAN VOLUME [ENTITIC VOLUME] IN BLOOD BY AUTOMATED COUNT 11.4 fL 7.4 - 10.4 04/13 H Specimen Type: BLOOD No comment entered. Ordering Provider: ANAY AVALOS Report Released Date/Time: Apr 10, 2024 11:32 AM Reporting Lab: [facility] [address] Performing Lab: [facility] [address] [facility] CBC ERYTHROCYTE DISTRIBUTIO N WIDTH [RATIO] BY AUTOMATED COUNT 13.2 11.5 - 14.5 04/13 Specimen Type: BLOOD No comment entered. Ordering Provider: ANAY AVALOS Report Released Date/Time: Apr 10, 2024 11:32 AM Reporting Lab: [facility] [address] Performing Lab: [facility] [address] [facility] COMPREHEN SIVE METABOLIC PANEL+MG CREATININE [MASS/VOLUM E] IN SERUM OR PLASMA 0.8 mg/dL 0.7 - 1.2 04/13 Specimen Type: PLASMA No comment entered. Ordering Provider: ANAY AVALOS Report Released Date/Time: Apr 10, 2024 11:32 AM Reporting Lab: [facility] [address] Performing Lab: [facility] [address] [facility] COMPREHEN SIVE METABOLIC PANEL+MG UREA NITROGEN [MASS/VOLUM E] IN SERUM OR PLASMA 23 mg/dL 8 - 26 04/13 Specimen Type: PLASMA No comment entered. Ordering Provider: ANAY AVALOS Report Released Date/Time: Apr 10, 2024 11:32 AM Reporting Lab: [facility] [address] Performing Lab: [facility] [address] [facility] COMPREHEN SIVE METABOLIC PANEL+MG GLUCOSE [MASS/VOLUM E] IN SERUM OR PLASMA 213 mg/dL 70 - 100 04/13 H Specimen Type: PLASMA No comment entered. Ordering Provider: ANAY AVALOS Report Released Date/Time: Apr 10, 2024 11:32 AM Reporting Lab: [facility] [address] Performing Lab: [facility] [address] [facility] COMPREHEN SIVE METABOLIC PANEL+MG SODIUM [MOLES/VOLU ME] IN SERUM OR PLASMA 138 mmol/L 136 - 145 04/13 Specimen Type: PLASMA No comment entered. Ordering Provider: AANY AVALOS Report Released Date/Time: Apr 10, 2024 11:32 AM Reporting Lab: [facility] [address] Performing Lab: [facility] [address] [facility] COMPREHEN SIVE METABOLIC PANEL+MG POTASSIUM [MOLES/VOLU ME] IN SERUM OR PLASMA 4.0 mmol/L 3.5 - 5.1 04/13 Specimen Type: PLASMA No comment entered. Ordering Provider: ANAY AVALOS Report Released Date/Time: Apr 10, 2024 11:32 AM Reporting Lab: [facility] [address] Performing Lab: [facility] [address] [facility] COMPREHEN SIVE METABOLIC PANEL+MG CHLORIDE [MOLES/VOLU ME] IN SERUM OR PLASMA 107 mmol/L 98 - 107 04/13 Specimen Type: PLASMA No comment entered. Ordering Provider: ANAY AVALOS Report Released Date/Time: Apr 10, 2024 11:32 AM Reporting Lab: [facility] [address] Performing Lab: [facility] [address] [facility] COMPREHEN SIVE METABOLIC PANEL+MG CARBON DIOXIDE, TOTAL [MOLES/VOLU ME] IN SERUM OR PLASMA 24 mmol/L 22 - 29 04/13 Specimen Type: PLASMA No comment entered. Ordering Provider: ANAY AVALOS Report Released Date/Time: Apr 10, 2024 11:32 AM Reporting Lab: [facility] [address] Performing Lab: [facility] [address] [facility] COMPREHEN SIVE METABOLIC PANEL+MG CALCIUM [MASS/VOLUM E] IN SERUM OR PLASMA 9.1 mg/dL 8.4 - 10.2 04/13 Specimen Type: PLASMA No comment entered. Ordering Provider: ANAY AVALOS Report Released Date/Time: Apr 10, 2024 11:32 AM Reporting Lab: [facility] [address] Performing Lab: [facility] [address] [facility] COMPREHEN SIVE METABOLIC PANEL+MG PROTEIN [MASS/VOLUM E] IN SERUM OR PLASMA 6.8 g/dL 6.4 - 8.3 04/13 Specimen Type: PLASMA No comment entered. Ordering Provider: ANAY AVALOS Report Released Date/Time: Apr 10, 2024 11:32 AM Reporting Lab: [facility] [address] Performing Lab: [facility] [address] [facility] COMPREHEN SIVE METABOLIC PANEL+MG ALBUMIN [MASS/VOLUM E] IN SERUM OR PLASMA 3.9 g/dL 3.5 - 5.2 04/13 Specimen Type: PLASMA No comment entered. Ordering Provider: ANAY AVALOS Report Released Date/Time: Apr 10, 2024 11:32 AM Reporting Lab: [facility] [address] Performing Lab: [facility] [address] [facility] COMPREHEN SIVE METABOLIC PANEL+MG BILIRUBIN.T OTAL [MASS/VOLUM E] IN SERUM OR PLASMA 0.5 mg/dL 0.2 - 1.2 04/13 Specimen Type: PLASMA No comment entered. Ordering Provider: ANAY AVALOS Report Released Date/Time: Apr 10, 2024 11:32 AM Reporting Lab: [facility] [address] Performing Lab: [facility] [address] [facility] COMPREHEN SIVE METABOLIC PANEL+MG MAGNESIUM [MASS/VOLUM E] IN SERUM OR PLASMA 2.1 mg/dL 1.6 - 2.6 04/13 Specimen Type: PLASMA No comment entered. Ordering Provider: ANAY AVALOS Report Released Date/Time: Apr 10, 2024 11:32 AM Reporting Lab: [facility] [address] Performing Lab: [facility] [address] [facility] COMPREHEN SIVE METABOLIC PANEL+MG ANION GAP IN SERUM OR PLASMA 7 mmol/L 5 - 15 04/13 Specimen Type: PLASMA No comment entered. Ordering Provider: ANAY AVALOS Report Released Date/Time: Apr 10, 2024 11:32 AM Reporting Lab: [facility] [address] Performing Lab: [facility] [address] [facility] COMPREHEN SIVE METABOLIC PANEL+MG ALKALINE PHOSPHATASE [ENZYMATIC ACTIVITY/VO LUME] IN SERUM OR PLASMA 60 U/L 40 - 150 04/13 Specimen Type: PLASMA No comment entered. Ordering Provider: ANAY AVALOS Report Released Date/Time: Apr 10, 2024 11:32 AM Reporting Lab: [facility] [address] Performing Lab: [facility] [address] [facility] COMPREHEN SIVE METABOLIC PANEL+MG ALANINE AMINOTRANSF ERASE [ENZYMATIC ACTIVITY/VO LUME] IN SERUM OR PLASMA 16 U/L <44 - 44 04/13 Specimen Type: PLASMA No comment entered. Ordering Provider: ANAY AVALOS Report Released Date/Time: Apr 10, 2024 11:32 AM Reporting Lab: [facility] [address] Performing Lab: [facility] [address] [facility] COMPREHEN SIVE METABOLIC PANEL+MG ASPARTATE AMINOTRANSF ERASE [ENZYMATIC ACTIVITY/VO LUME] IN SERUM OR PLASMA 28 U/L 11 - 34 04/13 Specimen Type: PLASMA No comment entered. Ordering Provider: ANAY AVALOS Report Released Date/Time: Apr 10, 2024 11:32 AM Reporting Lab: [facility] [id number] Performing Lab: [facility] [id number] [facility] COMPREHEN SIVE METABOLIC PANEL+MG GLOMERULAR FILTRATION RATE/1.73 SQ M.PREDICTED [VOLUME RATE/AREA] IN SERUM, PLASMA OR BLOOD BY CREATININE- BASED FORMULA (CKD-EPI 2020) >90 60 04/13 Specimen Type: PLASMA No comment entered. Ordering Provider: ANAY AVALOS Report Released Date/Time: Apr 10, 2024 11:32 AM Reporting Lab: [facility] [phone] Performing Lab: [facility] [address] [facility] CREATININ E(INCLUDE S EGFR) CREATININE [MASS/VOLUM E] IN SERUM OR PLASMA 1.0 mg/dL 0.7 - 1.2 11/06 Specimen Type: PLASMA No comment entered. Ordering Provider: FLOR ARRINGTON Report Released Date/Time: Oct 08, 2023 02:51 PM Reporting Lab: [facility] [address] Performing Lab: [facility] [address] [place] [facility] CREATININ E(INCLUDE S EGFR) GLOMERULAR FILTRATION RATE/1.73 SQ M.PREDICTED [VOLUME RATE/AREA] IN SERUM, PLASMA OR BLOOD BY CREATININE- BASED FORMULA (CKD-EPI 2020) 78 60 11/06 Specimen Type: PLASMA No comment entered. Ordering Provider: FLOR ARRINGTON Report Released Date/Time: Oct 08, 2023 02:51 PM Reporting Lab: [facility] [address] Performing Lab: [facility] [address] [place] [facility] AST/SGOT ASPARTATE AMINOTRANSF ERASE [ENZYMATIC ACTIVITY/VO LUME] IN SERUM OR PLASMA 18 U/L <34 - 34 11/06 Specimen Type: PLASMA No comment entered. Ordering Provider: FLOR ARRINGTON Report Released Date/Time: Oct 08, 2023 02:51 PM Reporting Lab: [facility] [address] Performing Lab: [facility] [address] [place] [facility] CBC LEUKOCYTES [#/VOLUME] IN BLOOD BY AUTOMATED COUNT 7.03 10*3/u L 4.0 - 11.0 11/06 Specimen Type: BLOOD No comment entered. Ordering Provider: FLOR ARRINGTON Report Released Date/Time: Oct 08, 2023 02:51 PM Reporting Lab: [facility] [address] Performing Lab: [facility] [address] [place] [facility] CBC ERYTHROCYTE S [#/VOLUME] IN BLOOD BY AUTOMATED COUNT 5.27 10*6/u L 4.6 - 6.2 11/06 Specimen Type: BLOOD No comment entered. Ordering Provider: FLOR ARRINGTON Report Released Date/Time: Oct 08, 2023 02:51 PM Reporting Lab: [facility] [address] Performing Lab: [place] [address] [place] [facility] CBC HEMOGLOBIN [MASS/VOLUM E] IN BLOOD 16.5 g/dL 13.5 - 17.9 11/06 Specimen Type: BLOOD No comment entered. Ordering Provider: FLOR ARRINGTON Report Released Date/Time: Oct 08, 2023 02:51 PM Reporting Lab: [facility] [address] Performing Lab: [facility] [address] [place] [facility] CBC HEMATOCRIT [VOLUME FRACTION] OF BLOOD BY AUTOMATED COUNT 49.2 41 - 54 11/06 Specimen Type: BLOOD No comment entered. Ordering Provider: FLOR ARRINGTON Report Released Date/Time: Oct 08, 2023 02:51 PM Reporting Lab: [facility] [address] Performing Lab: [facility] [address] [place] [facility] CBC MCV [ENTITIC VOLUME] BY AUTOMATED COUNT 93.4 fL 80 - 100 11/06 Specimen Type: BLOOD No comment entered. Ordering Provider: FLOR ARRINGTON Report Released Date/Time: Oct 08, 2023 02:51 PM Reporting Lab: [facility] [address] Performing Lab: [facility] [address] [place] [facility] CBC MCH [ENTITIC MASS] BY AUTOMATED COUNT 31.3 pg 27 - 33 11/06 Specimen Type: BLOOD No comment entered. Ordering Provider: FLOR ARRINGTON Report Released Date/Time: Oct 08, 2023 02:51 PM Reporting Lab: [facility] [address] Performing Lab: [facility] [address] [place] [facility] CBC MCHC [MASS/VOLUM E] BY AUTOMATED COUNT 33.5 g/dL 32.0 - 37.5 11/06 Specimen Type: BLOOD No comment entered. Ordering Provider: FLOR ARRINGTON Report Released Date/Time: Oct 08, 2023 02:51 PM Reporting Lab: [facility] [address] Performing Lab: [facility] [address] [place] [facility] CBC PLATELETS [#/VOLUME] IN BLOOD BY AUTOMATED COUNT 174 10*3/u L 150 - 400 11/06 Specimen Type: BLOOD No comment entered. Ordering Provider: FLOR ARRINGTON Report Released Date/Time: Oct 08, 2023 02:51 PM Reporting Lab: [facility] [address] Performing Lab: [facility] [address] [place] [facility] CBC PLATELET MEAN VOLUME [ENTITIC VOLUME] IN BLOOD BY AUTOMATED COUNT 11.2 fL 7.4 - 10.4 11/06 H Specimen Type: BLOOD No comment entered. Ordering Provider: FLOR ARRINGTON Report Released Date/Time: Oct 08, 2023 02:51 PM Reporting Lab: [facility] [address] Performing Lab: [facility] [address] [place] [facility] CBC ERYTHROCYTE DISTRIBUTIO N WIDTH [RATIO] BY AUTOMATED COUNT 12.9 11.5 - 14.5 11/06 Specimen Type: BLOOD No comment entered. Ordering Provider: FLOR ARRINGTON Report Released Date/Time: Oct 08, 2023 02:51 PM Reporting Lab: [facility] [address] Performing Lab: [facility] [address] [place] [facility] ALT/SGPT ALANINE AMINOTRANSF ERASE [ENZYMATIC ACTIVITY/VO LUME] IN SERUM OR PLASMA 17 U/L <55 - 55 11/06 Specimen Type: PLASMA No comment entered. Ordering Provider: FLOR ARRINGTON Report Released Date/Time: Oct 08, 2023 02:51 PM Reporting Lab: [facility] [address] Performing Lab: [facility] [address] [place] [facility] MICROALBU MIN/CREAT ININE RATIO URINE CREATININE [MASS/VOLUM E] IN URINE 53.1 mg/dL 58.0 - 161.0 03/07 L Specimen Type: URINE Comment: Urine microalbumi n <5 mg/L, unable to calculate ratio Ordering Provider: JENNIFER PIÑA Report Released Date/Time: Mar 07, 2023 10:18 AM Reporting Lab: [facility] [address] Performing Lab: [facility] [address] [facility] MICROALBU MIN/CREAT ININE RATIO URINE MICROALBUMI N/CREATININ E [MASS RATIO] IN URINE cancmg /g{cre at} 03/07 Specimen Type: URINE Comment: Urine microalbumi n <5 mg/L, unable to calculate ratio Ordering Provider: JENNIFER PIÑA Report Released Date/Time: Mar 07, 2023 10:18 AM Reporting Lab: [facility] [address] Performing Lab: [facility] [address] [facility] MICROALBU MIN/CREAT ININE RATIO URINE MICROALBUMI N [MASS/VOLUM E] IN URINE <5.0mg /L 03/07 Specimen Type: URINE Comment: Urine microalbumi n <5 mg/L, unable to calculate ratio Ordering Provider: JENNIFER PIÑA Report Released Date/Time: Mar 07, 2023 10:18 AM Reporting Lab: [facility] [address] Performing Lab: [facility] [address] [facility] Vital Signs Combined list of inpatient and outpatient Vital Signs from Department of Defense and Veterans Affairs, ranging from 12 months to all on record, depending upon the facility. Vital Sign Value Date Comments Source SYSTOLIC BLOOD PRESSURE 125 07/03/2024 15:20:06 [facility] DIASTOLIC BLOOD PRESSURE 77 07/03/2024 15:20:06 [facility] PULSE OXIMETRY 98 07/03/2024 15:20:06 [facility] PAIN 0 07/03/2024 15:20:06 [facility] TEMPERATURE 98.5 07/03/2024 15:20:06 [facility] PULSE 64 07/03/2024 15:20:06 [facility] Lauren [facility] RESPIRATION 16 07/03/2024 15:20:06 [facility] SYSTOLIC BLOOD PRESSURE 117 05/18/2024 10:48:28 [facility] DIASTOLIC BLOOD PRESSURE 72 05/18/2024 10:48:28 [facility] PULSE OXIMETRY 95 05/18/2024 10:48:28 [facility] WEIGHT 200.7 05/18/2024 10:48:28 [facility] BMI 29kg/m2 05/18/2024 10:48:28 [facility] TEMPERATURE 97.8 05/18/2024 10:48:28 [facility] PULSE 60 05/18/2024 10:48:28 [facility] SYSTOLIC BLOOD PRESSURE 125 04/10/2024 11:07:51 [facility] DIASTOLIC BLOOD PRESSURE 73 04/10/2024 11:07:51 [facility] PULSE OXIMETRY 95 04/10/2024 11:07:51 Erica [facility] WEIGHT 199 04/10/2024 11:07:51 [facility] Lauren [facility] BMI 29kg/m2 04/10/2024 11:07:51 [facility] TEMPERATURE 97.5 04/10/2024 11:07:51 [facility] PULSE 56 04/10/2024 11:07:51 [facility] Encounters Combined list of: 1) Encounters from Department of Veterans Affairs facilities going back up to thelast 18 months. 2) Encounters from the Department of [facility] facilities going back up to 280 months. Location Location Details Encounter Type Encounter Number Reason For Visit Attending Provider ADM Date DC Date Status Disposition Source [place] [facility] Outpatient Encounter [id number] 04/12 [facility] [place] [facility] Outpatient Encounter [id number] 05/02 [facility] [place] [facility] Outpatient Encounter [id number] 08/02 [facility] [place] [facility] Outpatient Encounter [id number] 10/08 [facility] [place] ADMIN [id number] Diagnos is: ICD-10- CM Z23 Encount er for immuniz ation<b r/> GISELETOSHIAGLADYS EDEN GARLANDE 11/06 [facility] [place] [facility] Outpatient Encounter [id number] 11/06 [facility] [place] [facility] Outpatient Encounter [id number] 12/05 [facility] [place] [facility] Outpatient Encounter [id number] 12/10 [facility] [place] [facility] Outpatient Encounter [id number] 12/24 [facility]P EST HI 40 MIN [id number] Diagnos is: ICD-10- CM Z77.021 Contact with and (suspec aicha) exposur e to benzene
ASHA SIDDIQI 12/25 [facility] Outpatient Encounter [id number] 02/03 [facility] [place] [facility] Outpatient Encounter [id number] 02/04 [facility] [place] [facility] Outpatient Encounter [id number] 02/09 [facility] [place] [facility] Outpatient Encounter [id number] 02/27 [facility] [place] [facility] Outpatient Encounter [id number] 03/17 [facility] OFF[facility] O/P EST HI 40 MIN [id number] Diagnos is: ICD-10- CM E11.42 Type 2 diabete s mellitu s with diabeti c polyneu ropathy
SAY AVALOS 04/10 [facility] Outpatient Encounter [id number] 04/10 [place] [facility] Encounter [id number] MARCK HE Sandra 05/11 [place] [facility] [place] [facility] Outpatient Encounter [id number] GRANT VILLARREAL 05/12 [place] [facility] Outpatient Encounter [id number] KEVINWILLEM 05/13 [facility] FEE [id number] Diagnos is: ICD-10- CM E11.9 Type 2 diabete s mellitu s without complic ations< br/> LISA NAIR E E 05/18 [facility] MED NUTRITION INDIV SUBSEQ [id number] Diagnos is: ICD-10- CM E11.9 Type 2 diabete s mellitu s without complic ations< br/> LISA NAIR E E 05/18 [facility] HC PRO PHONE CALL 5-10 MIN [id number] Diagnos is: ICD-10- CM I95.9 Hypoten elif, unspeci fied
WANG RAMIREZ 05/18 [facility] QNHP OL DIG ASSMT&MGMT 5-10 [id number] Diagnos is: ICD-10- CM Z79.01 retirement (curren t) use of anticoa gulants
ALMA MANTILLA 05/25 [facility] [place] [facility] Outpatient Encounter [id number] 06/03 [place] [facility] [place] [facility] Outpatient Encounter [id number] 06/05 [facility] IMMUNIZAT[facility] ADMIN [id number] Diagnos is: ICD-10- CM Z23 Encount er for immuniz ation<b r/> WANG RAMIREZ 07/02 [facility] OFF/OP EST FEBRUARY X REQ PHY/QHP [id number] Diagnos is: ICD-10- CM I95.9 Hypoten elif, unspeci fied
HELWANG GUADARRAMA L 07/03 [facility] Outpatient Encounter [id number] 07/08 [facility] MED NUTRITION INDIV SUBSEQ [id number] Diagnos is: ICD-10- CM E11.9 Type 2 diabete s mellitu s without complic ations< br/> JOANIE,GRAC E E 07/10 [facility] Outpatient Encounter [id number] Diagnos is: ICD-10- CM I48.0 Paroxys mal atrial fibrill ation<b r/> Efrain OCASIO 07/16 [facility] [place] [facility] Outpatient Encounter [id number] 07/22 [facility] [place] [facility] Outpatient Encounter [id number] 07/29 [facility] [place] [facility] Outpatient Encounter [id number] 08/06 [facility] Social History Combined list of available smoking, tobacco, and other social history from Department of Defense and [facility] Affairs facilities. Social History Type Response Date Comment Sourc e Tobacco smoking status NHIS FORMER SMOKER - <100 LIFETIME CIGARETTES 04/10/2024 [facility] History of tobacco use [facility]TOBACCO QUIT 1 5 YRS OR MORE 03/07/2023 [facility] History of tobacco use PA-TOBACCO FORMER USER 03/16/2022 [facility] History of tobacco use PA-TOBACCO NEVER USED 02/13/2021 [facility] History of tobacco use PA-TOBACCO NEVER USED 03/21/2020 [facility] History of tobacco use PA-TOBACCO NEVER USED 03/25/2019 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 History of tobacco use FORMER TOBACCO US ER 7Y OR GREATER 08/02/2014 [facility] History of tobacco use FORMER TOBACCO US ER 7Y OR GREATER 07/31/2013 [facility] Plan of Care List of future care activities from Department of Veterans Affairs facilities. Additional future care activities may be listed in the Assessment and Plan section. Date/Time Care Activity Care Activity Detail Facili ty 10/12/2024 AMBULATORY - MEDICINE AMBULATORY - MEDICI [facility] 10/12/2024 AMBULATORY - MEDICINE AMBULATORY - MEDICI [facility]
--- OUTSIDE RECORDS SUMMARY | 2024-09-23 07:52 | XMS_ITS | Encounter Summary ---
Author Name [facility] [place] [place] [facility] [place] Address [address] [place] [address] Care Team Providers Care Decorating Supervisor Name Role Phone ANAY AVALOS Primary Care [...] PART A Jul 07, 2013 PART A [id number] [phone] ARLETH SANTAMARIA PATIENT MEDICARE (WNR) MEDICARE (M) PART A Jul 07, 2013 PART A [id number] ARLETH SANTAMARIA PATIENT Selected Encounter This section includes the information on record at [place] for the Encounter. Date/Time Encounter Type Encounter Description Reason Pro vider Source Jul 29, 2024 01:22 PM Outpatient Encounter CARDIOLOGY IHE Encounter Template Text not used by [place] Plan of Treatment: Future Appointments (+ 6 months) and Future Tests (+/- 45 days) The Plan of Treatment section includes future care activities for the patient from all [place] treatmentfacilities. This section includes future appointments and [...] 12, 2024 08:00 AM AMBULATORY - MEDICINE [facility] Oct 12, 2024 08:40 AM AMBULATORY - MEDICINE [facility] Social History: Smoking Status (Most current) and Tobacco Use (All prior to encounter date) This section includes the most current, and the historical, smoking and tobacco- related health factors from the [place] facility where the Encounter took place. Current Smoking Status This section includes the most current smoking, or tobacco-related health factor, from the [place] facility where the Encounter took place. Date/Time Current Smoking Status Comment Facil ity Mar 29, 2016 05:20 AM INPT NO TOBACCO USE IN LAST 30 D [facility] Encounter Notes: All associated encounter notes This section contains the clinical notes associated to the Encounter. Date/Time Encounter Note(s) Provider Source Jul 29, 2024 01:22 PM REPORT OF CONTACT: LOCAL TITLE: PATIENT CONTACT NOTE STANDARD TITLE: REPORT OF CONTACT DATE OF NOTE: JUL 29, 2024@13:22 ENTRY DATE: JUL 29, 2024@13:23:02 AUTHOR: HELGA MILLER COSIGNER: URGENCY: STATUS: COMPLETED Patient contact Name of : MILI SANTAMARIA Name/Relationship of Contact if other than [place]: Date & Time of Contact: Jul@13:23 Type of Contact: Telephone Reason for Contact: was told to call back to discuss bp reading after medication adjustment. /zach/ HELGA MILLER [employer] Signed: 07/29/2024 13:24 Receipt Acknowledged By: 09/21/2024 11:57 /zach/ ASTON DIXON CARDIOLOGY NURSE PRACTITIONER HELGA MILLER [facility]
--- OUTSIDE RECORDS SUMMARY | 2024-09-23 07:52 | XMS_ITS | Encounter Summary ---
Author Name [facility] [place] [facility] [place] Address [address] [place] [address] Care Team Providers Care Game Breeding Farm Manager Name Role Phone ANAY AVALOS Primary Care [...] PART A Jul 07, 2013 PART A [id number] [phone] ARLETH SANTAMARIA PATIENT MEDICARE (WNR) MEDICARE (M) PART A Jul 07, 2013 PART A [id number] [id number] [phone] ARLETH SANTAMARIA PATIENT Selected Encounter This section includes the information on record at [place] for the Encounter. Date/Time Encounter Type Encounter Description Reason Pro vider Source Jul 22, 2024 03:41 PM Outpatient Encounter EVENT (HISTORICAL) IHE Encounter Template Text not used by [place] Plan of Treatment: Future Appointments (+ 6 [...] 20 appointments. The data comes from all [place] treatment facilities. Appointment Date/Time Appointment Type Appointme nt Facility Name Oct 12, 2024 08:00 AM AMBULATORY - MEDICINE [facility] Oct 12, 2024 08:40 AM AMBULATORY - MEDICINE [facility] Social History: Smoking Status [...] Encounter took place. Date/Time Current Smoking Status Judith cantu Mar 29, 2016 05:20 AM INPT NO TOBACCO USE IN LAST 30 D [facility]
--- OUTSIDE RECORDS SUMMARY | 2024-09-23 07:53 | XMS_ITS | Encounter Summary ---
Author Name [facility] [place] [facility] [place] Address [address] [place] [id number] Care Team Providers Care Project Manager Name Role Phone ROBBIEANAY ISABEL Primary Care [...] PART A Jul 07, 2013 PART A [id number] [phone] ARLETH SANTAMARIA PATIENT MEDICARE (WNR) MEDICARE (M) PART A Jul 07, 2013 PART A [id number] ARLETH SANTAMARIA PATIENT Selected Encounter This section includes the information on record at [place] for the Encounter. Date/Time Encounter Type Encounter Description Reason Provider Source May 25, 2024 08:46 AM QNHP OL DIG ASSMT&MGMT 5-10 CLINICAL PHARMACY ICD-10-CM Z79.01 shelter (current) use of anticoagulants SHRAVAN MANTILLA Encounter Template Text not used by [place] Assessments - Encounter Diagnoses This section includes the primary and secondary diagnoses documented for the Encounter. Date/Time Primary/Secondary Diagnosis Diagnosis Name Provider Source May 25, 2024 08:49 AM PRIMARY rn long term care (current) use of anticoagulants SHRAVAN MANTILLA [facility] May 25, 2024 08:49 AM SECONDARY Encounter for therapeutic drug level monitoring SHRAVAN MANTILLA [facility] May 25, 2024 08:49 AM SECONDARY Unspecified atrial fibrillation [facility] Plan of Treatment: Future Appointments (+ 6 months) and Future Tests (+/- 45 days) The Plan of Treatment section includes future care activities for the patient from all [place] [facility]. This section includes future appointments and future orders which are active, pending or scheduled. Future Appointments This section includes appointments that were scheduled to occur 6 months from the date of the Encounter, up to a maximum of 20 appointments. The data comes from all [facility] facilities. Appointment Date/Time Appointment Type Appointme nt Facility Name Jul 03, 2024 10:45 AM AMBULATORY - MEDICINE [facility] Jul 08, 2024 11:30 AM [facility]ORY - NONE [facility] Jul 10, 2024 11:30 AM AMBULATORY - NONE [facility] Oct 12, 2024 08:00 AM AMBULATORY - MEDICINE [facility] Oct 12, 2024 08:40 AM AMBULATORY - MEDICINE [facility] Social History: Smoking Status (Most current) and Tobacco Use (All prior to encounter date) This section includes the most current, and the historical, smoking and tobacco- related health factors from the [place] facility where the Encounter took place. Current Smoking Status This section includes the most current smoking, or tobacco-related health factor, from the [place] facility where the Encounter took place. Date/Time Current Smoking Status Comment Allan cantu Mar 29, 2016 05:20 AM INPT NO TOBACCO USE IN LAST [address] [facility] Encounter Notes: All associated encounter notes This section contains the clinical notes associated to the Encounter. Date/Time Encounter Note(s) Provider Source May 25, 2024 08:46 AM PHARMACY OUTPATIEN T MEDICATION MGT NOTE: LOCAL TITLE: PHARMACY ANTICOAGULATION CLINIC F/U STANDARD TITLE: PHARMACY OUTPATIENT MEDICATION MGT NOTE DATE OF NOTE: MAY 25, 2024@08:46 ENTRY DATE: MAY 25, 2024@08:46:42 AUTHOR: IZABELA MANTILLA COSIGNER: URGENCY: STATUS: COMPLETED DOAC DASHBOARD ALERT - RENEWAL - Anticoagulant: Apixaban 5mg every 12 hours - Indication: Atrial fibrillation - Relevant PMH: aortic valve replacement - Prior major bleeds: none noted - Prior anticoagulants: warfarin - Date started: consult approved 08/29/2016 - Anticipated duration of therapy: indefinite - CHADS2-VASC = 4 (age+2, CAD, DM II) - HAS-BLED = 1 (age) SUBJECTIVE/OBJECTIVE: Obtained from chart review. Dashboard flags: Renewal due Labs ==== Age: 73 Height: 70 in [177.8 cm] (03/07/2023 10:19) Weight: 200.7 lb [91.04 kg] (05/18/2024 10:48) Collection DT Specimen Test Name Result Units Ref Range 04/13/2024 09:12 PLASMA CREATININE 0.8 mg/dL 0.7 - 1.2 11/06/2023 09:42 PLASMA CREATININE 1.0 mg/dL 0.7 - 1.2 03/07/2023 10:48 PLASMA CREATININE 0.9 mg/dL 0.7 - 1.2 09/06/2022 10:45 PLASMA CREATININE 0.8 mg/dL 0.7 - 1.2 03/16/2022 09:14 PLASMA CREATININE 0.9 mg/dL 0.7 - 1.2 08/11/2021 09:00 PLASMA CREATININE 0.8 mg/dL 0.7 - 1.2 02/13/2021 10:42 PLASMA CREATININE 0.8 mg/dL 0.7 - 1.2 12/15/2020 11:48 PLASMA CREATININE 0.8 mg/dL 0.7 - 1.2 06/29/2020 09:25 PLASMA CREATININE 0.9 mg/dL 0.7 - 1.2 04/20/2020 08:40 PLASMA CREATININE 0.9 mg/dL 0.7 - 1.2 Cockcroft & Gault (Actual body weight) = 102.7 mL/min Collection DT Spec WBC HGB HCT PLT MCV 04/13/2024 09:12 BLOOD 5.70 14.8 44.9 146 L 93.9 11/06/2023 09:42 BLOOD 7.03 16.5 49.2 174 93.4 Collection DT Specimen Test Name Result Units Ref Range 04/13/2024 09:12 PLASMA BILIRUBIN, TOTAL 0.5 mg/dL 0.2 - 1.2 04/13/2024 09:12 PLASMA ALKALINE PHOSPHAT 60 U/L 40 - 150 04/13/2024 09:12 PLASMA AST/SGOT 28 U/L 11 - 34 04/13/2024 09:12 PLASMA ALT/SGPT 16 U/L Ref: <=44 ASSESSMENT/PLAN: Per chart review, appropriate for continued anticoagulant use. No contraindications noted. Benefit of therapy continues to outweigh risk. Lab monitoring current and without concern. Recent refill history suggests adherence. - Continue anticoagulation at current dose. - Monitor dashboard for labs, drug interactions, and compliance. - Dashboard flags reviewed/cleared, if applicable. - Lab monitoring frequency defined by dashboard or as clinically indicated. - Rx reviewed - renewed for 90ds w/ refills. Time spent: 10 min /zach/ ALMA MANTILLA Pharmacist Signed: 05/25/2024 08:[address] [facility]
--- OUTSIDE RECORDS SUMMARY | 2024-09-23 07:53 | XMS_ITS | Encounter Summary ---
Author Name [facility] [place] Address [address] [place] [address] Care Team Providers Care Records Management Engineer Name Role Phone ANAY AVALOS Primary Care [...] PART A Jul 07, 2013 PART A [id number] [phone] ARLETH SANTAMARIA PATIENT MEDICARE (WNR) MEDICARE (M) PART A Jul 07, 2013 PART A [id number] 16A ARLETH SANTAMARIA PATIENT Selected Encounter This section includes the information on record at [place] for the Encounter. Date/Time Encounter Type Encounter Description Reason Pro vider Source Jun 03, 2024 03:50 PM Outpatient Encounter EVENT (HISTORICAL) IHE Encounter Template Text not used by [place] Plan of Treatment: Future Appointments (+ 6 [...] 20 appointments. The data comes from all [place] treatment facilities. Appointment Date/Time Appointment Type Appointme nt Facility Name Jul 03, 2024 10:45 AM AMBULATORY - MEDICINE [facility] Jul 08, 2024 11:30 AM AM[facility]ATORY - NONE [facility] Jul 10, 2024 11:30 AM [facility] Oct 12, 2024 08:00 AM AMBULATORY - MEDICINE [facility] Oct 12, 2024 08:40 AM AMBULATORY - MEDICINE [facility] Social History: Smoking Status (Most current) and [...] NO TOBACCO USE IN LAST 30 D [facility]
--- OUTSIDE RECORDS SUMMARY | 2024-09-23 07:53 | XMS_ITS | Encounter Summary ---
Author Name [facility] [place] Address [address] [place] [id number] Care Team Providers Care Budget Manager Name Role Phone ANAY AVALOS Primary [...] PART A Jul 07, 2013 PART A [id number] [phone] ARLETH SANTAMARIA PATIENT MEDICARE (WNR) MEDICARE (M) PART A Jul 07, 2013 PART A [id number] ARLETH SANTAMARIA PATIENT Selected Encounter This section includes the information on record at [place] for the Encounter. Date/Time Encounter Type Encounter Description Reason Pro vider Source Jun 05, 2024 03:41 PM Outpatient Encounter EVENT (HISTORICAL) IHE Encounter Template Text not used by [place] Plan of Treatment: Future Appointments (+ 6 [...] 20 appointments. The data comes from all [place] treatment facilities. Appointment Date/Time Appointment Type Appointme nt Facility Name Jul 03, 2024 10:45 AM AMBULATORY - MEDICINE [facility] Jul 08, 2024 11:30 AM [facility]ORY - NONE [facility] Jul 10, 2024 11:30 AM [facility] Oct 12, 2024 08:00 AM AMBULATORY - MEDICINE [facility] Oct 12, 2024 08:40 AM AMBULATORY - MEDICINE [facility] Social History: Smoking Status (Most current) and [...] TOBACCO USE IN LAST [address] D [facility]
--- OUTSIDE RECORDS SUMMARY | 2024-09-23 07:53 | XMS_ITS ---
Author Name [facility] [place] Address [address] [place] [address] Care Team Providers Care Diesel Technician Mechanic Name Role Phone ROBBIEANAY ISABEL Primary Care [...] PART A Jul 07, 2013 PART A [id number] [phone] ARLETH SANTAMARIA PATIENT MEDICARE (WNR) MEDICARE (M) PART A Jul 07, 2013 PART A [id number] [phone] ARLETH SANTAMARIA PATIENT Selected Encounter This section includes the information on record at [place] for the Encounter. Date/Time Encounter Type Encounter Description Reason Provider Source May 18, 2024 10:45 AM TELEHEALTH FACILITY FEE NUTRITION/DIETET ICS-INDIVIDUAL ICD-10-CM E11.9 Type 2 diabetes mellitus without complications TIFFANY NAIR Encounter Template Text not used by [place] Assessments - Encounter Diagnoses This section includes the primary and secondary diagnoses documented for the Encounter. Date/Time Primary/Secondary Diagnosis Diagnosis Name Provider Source May 20, 2024 10:41 AM PRIMARY Type 2 diabetes mellitus without complications ANNA SMALLS [facility] May 20, 2024 10:41 AM SECONDARY Dietary counseling and surveillance ANNA SMALLS [facility] Plan of Treatment: Future Appointments (+ 6 months) and Future Tests (+/- 45 days) The Plan of Treatment section includes future care activities for the patient from all [place] [facility]. This section includes future appointments and future orders which are active, pending or scheduled. Future Appointments This section includes appointments that were scheduled to occur 6 months from the date of the Encounter, up to a maximum of 20 appointments. The data comes from all [facility] facilities. Appointment Date/Time Appointment Type Appointme nt Facility Name Jul 03, 2024 10:45 AM AMBULATORY - MEDICINE [facility] Jul 08, 2024 11:30 AM AMBULATORY - NONE [facility] Jul 10, 2024 11:30 AM [facility] Oct 12, 2024 08:00 AM AMBULATORY - MEDICINE [facility] Oct 12, 2024 08:40 AM AMBULATORY - MEDICINE [facility] Vital Signs: All taken on the encounter date This section contains inpatient and outpatient Vital Signs collected on the date of the Encounter. Date/Time Temperature Pulse Blood Pressure Respiratory Rate SP02 Pain Height Weight Body Mass Index Source May 18, 2024 10:48 AM 97.8 60 117/72 95 200.7 29 [facility] Social History: Smoking Status (Most current) and Tobacco Use (All prior to encounter date) This section includes the most current, and the historical, smoking and tobacco- related health factors from the [place] facility where the Encounter took place. Current Smoking Status This section includes the most current smoking, or tobacco-related health factor, from the [place] facility where the Encounter took place. Date/Time Current Smoking Status Comment Allan cantu Apr 10, 2024 11:00 AM FORMER SMOKER - <1 00 LIFETIME CIGARETTES [facility] Tobacco Use History This section includes a history of the smoking, or tobacco-related health factors, that were collected on or before the date of the Encounter. The data comes from the [place] facility where the Encounter took place. Date/Time Smoking Status/Tobacco Use Comment F acility Mar 07, 2023 10:00 AM VA-TOBACCO FORMER USER [facility] Mar 07, 2023 10:00 AM [place]-TOBACCO QUIT 15 YRS OR MORE [facility] Mar 16, 2022 08:30 AM VA-TOBACCO FORMER USER [facility] Mar 16, 2022 08:30 AM [place]-TOBACCO QUIT 15 YRS OR MORE [facility] February 13, 2021 10:00 AM [place]-TOBACCO NEVER USED [facility] Mar 21, 2020 11:28 AM VA-TOBACCO NEVER USED [facility] Mar 25, 2019 01:07 PM [place]-TOBACCO NEVER USED [facility] February 14, 2018 02:54 PM LIFETIME NON-TOBACCO USER [facility] Mar 08, 2017 11:18 AM LIFETIME NON-TOBACCO USER [facility] Jan 23, 2016 08:04 AM LIFETIME NON-TOBACCO USER [facility] Aug 02, 2014 10:35 AM FORMER TOBACCO USER 7Y OR GREATE R [facility] Jul 31, 2013 09:53 AM FORMER TOBACCO USER 7Y OR CY R [facility] Encounter Notes: All associated encounter notes This section contains the clinical notes associated to the Encounter. Date/Time Encounter Note(s) Provider Source May 18, 2024 12:32 PM INTERNAL MEDICINE OUTPATIENT NOTE: LOCAL TITLE: MEDICINE CLINIC NURSING NOTE STANDARD TITLE: INTERNAL MEDICINE OUTPATIENT NOTE DATE OF NOTE: MAY 18, 2024@12:32 ENTRY DATE: MAY 18, 2024@12:32:57 AUTHOR: MARK PEREYRA EXP COSIGNER: URGENCY: STATUS: COMPLETED TYPE OF VISIT: Appointment Check In Type of appointment: In-person appointment REASON FOR VISIT: CVT NUTRITION with Tiffany Nair ALLERGIES: TRAMADOL (Apr 05, 2016) VITAL SIGNS: Blood Pressure: 117/72 (05/18/2024 10:48) Pulse: 60 (05/18/2024 10:48) Respiration: 16 (03/07/2023 10:19) Temperature: 97.8 F [36.6 C] (05/18/2024 10:48) Weight: 200.7 lb [91.04 kg] (05/18/2024 10:48) Height: 70 in [177.8 cm] (03/07/2023 10:19) BMI: 28.9 O2 Sat: 95% (05/18/2024 10:48) Pain: 0 (03/07/2023 10:19) PAIN SCREEN: Patient is not having significant pain that they wish to discuss with their provider today. /zach/ MARK PEREYRA TCT Signed: 05/18/2024 12:34 MARK PEREYRA [facility]
--- OUTSIDE RECORDS SUMMARY | 2024-09-23 07:53 | XMS_ITS ---
[place] [facility] Encounter Summary Created on: September 23, 2024 MILI SANTAMARIA : 1950 Sex: Male Author Name [facility] [place] Address [address] [place] [address] Care Team Providers Care Soil Surveyor Name Role Phone ROBBIE ANAY Primary Care Provider Unavailclovis rainey Insurance Providers: [...] PART A Jul 07, 2013 PART A [id number] [phone] ARLETH SANTAMARIA PATIENT MEDICARE (WNR) MEDICARE ([place]) PART A Jul 07, 2013 PART A [id number] ARLETH SANTAMARIA PATIENT Selected Encounter This section includes the information on record at [place] for the Encounter. Date/Time Encounter Type Encounter Description Reason Provider Source May 18, 2024 11:00 AM MED NUTRITION INDIV SUBSEQ NUTRITION/DIETETI CS-INDIVIDUAL ICD-10-CM E11.9 Type 2 diabetes mellitus without complications TIFFANY NAIR Encounter Template Text not used by [facility] Assessments - Encounter Diagnoses This section includes the primary and secondary diagnoses documented for the Encounter. Date/Time Primary/Secondary Diagnosis Diagnosis Name Provider Source May 18, 2024 11:56 AM PRIMARY Type 2 diabetes mellitus without complications TIFFANY NAIR [facility] May 18, 2024 11:56 AM SECONDARY Dietary counseling and surveillance TIFFANY NAIR [facility] Plan of Treatment: Future Appointments (+ 6 months) and Future Tests (+/- 45 days) The Plan of Treatment section includes future care activities for the patient from all [place] [facility]. This section includes future appointments and future orders which are active, pending or scheduled. Future Appointments This section includes appointments that were scheduled to occur 6 months from the date of the Encounter, up to a maximum of 20 appointments. The data comes from all [place] treatment facilities. Appointment Date/Time Appointment Type Appointme nt Facility Name Jul 03, 2024 10:45 AM AMBULATORY - MEDICINE [facility] Jul 08, 2024 11:30 AM [facility] Jul 10, 2024 11:30 AM [facility] Oct 12, 2024 08:00 AM AMBULATORY - MEDICINE [facility] Oct 12, 2024 08:40 AM AMBULATORY - MEDICINE [facility] Encounter Notes: All associated encounter notes This section contains the clinical notes associated to the Encounter. Date/Time Encounter Note(s) Provider Source May 18, 2024 07:49 AM NUTRITION RISK ASS ESSMENT SCREENING NOTE: LOCAL TITLE: NUTRITION OUTPT ASSESSMENT STANDARD TITLE: NUTRITION RISK ASSESSMENT SCREENING NOTE DATE OF NOTE: MAY 18, 2024@07:49 ENTRY DATE: MAY 18, 2024@07:49:46 AUTHOR: TIFFANY NAIR EXP COSIGNER: URGENCY: STATUS: COMPLETED Visit Information: Delivery Method: CVT Visit Type: Initial Visit Reason for visit: T2DM Time spent with [place]: 40 minutes ASSESSMENT: [place] presents for visit with Mariia. Meds include metformin and empagliflozin. States he had a grandson with diabetes so is aware that he needs to watch the sugar in his diet. Finds this challenging because he loves to eat and is used to eating large portions. Familiar with the term carbohydrate but unable to name many foods that contain carbs other than sweets. reports episodes where appears confused/lethargic and she thinks this is low blood sugar so she brings him a can of regular pop to drink. Unable to recall how often this happens and denies other symptoms like shaking/sweating. Diet Recall: Meal 1: instant oatmeal packet w/plain oatmeal, banana, sometimes protein shake (25g whey protein, water) Snack: toast w/peanut butter and jelly <or> pastry, coffee Meal 2: fruit, sandwich <or> leftovers Meal 3: 3-4 oz meat, 1.5 cup potatoes, 1/2 plate salad Snack: 1 scoop ice cream or pie 3-4x/week Fluids: 6-8 cups black coffee, 2 quarts water w/electrolytes, occasional pop Labs HEMOGLOBIN A1C 8.3 H (04/13/24) Height: 70 in [177.8 cm] (03/07/2023 10:19) Weight: Measurement DT WEIGHT LB(KG)[BMI] 04/10/2024 11:07 199(90.26)[29*] Malnutrition Assessment (per AND/ASPEN Consensus Statement, 2012): Dietitian does not suspect malnutrition at this time, therefore, physical assessment not conducted Estimated Nutrient Intake: Carbohydrates 45-75g/meal, 30-60g/snack Comparative Standards: Carbohydrates 45g/meal, 0-15g/snack DIAGNOSIS: Problem: Excessive carbohydrate intake Etiology: food and nutrition-related knowledge deficit Signs/Symptoms: pt eating 45-75g carb/meal, 30-60g carb/snack, A1c 8.3 INTERVENTION: Nutrition Prescription: carbohydrate-controlled diet Content-related nutrition education: o Educated and on what carbohydrates are and how they affect blood sugar; deferred education on portion sizes until follow-up o Discussed balanced plate for meal planning o Educated on importance of pairing carbohydrates with protein o Recommended choosing healthier alternatives to ice cream and pie o Reviewed signs/symptoms of low blood sugar and discussed that hypoglycemia is unlikely based on 's diabetes medication regimen and current diet. Encouraged / to contact triage line for light armored vehicle officer of concerning symptoms rather than assuming it is a low blood sugar and giving pop. o Mailed handouts: diabetes plan your plate, 45g carb meal plan, hyper/hypoglycemia Goal: [place] will be able name 5 carbohydrate foods at follow-up Carbohydrate-modified diet: o Provided suggestions for meals and snacks that pair protein with carbohydrates o Discussed strategies to reduce carbohydrates at breakfast: 1 packet oatmeal, 1/2 banana, etc. Will discuss other meals at follow-up Goal: will replace 1 packet oatmeal with protein shake at breakfast Patient Education of Treatment Plan: Patient indicates readiness to learn, verbalizes understanding, agreement and satisfaction with the treatment plan. Denies further questions. MONITORING & EVALUATION: Goal(s): 1 - Hgb A1c <8.3 at next check 2 - Carbohydrate estimated intake in one meal: 45g by follow-up 3 - Carbohydrate estimated intake in one meal (snack): <30g by follow-up Follow Up: Follow up appointment will be scheduled: 6 weeks /zach/ TIFFANY NAIR MS, RDN, CDCES REGISTERED DIETITIAN Signed: 05/19/2024 09:42 TIFFANY NAIR [facility]
--- OUTSIDE RECORDS SUMMARY | 2024-09-23 07:54 | XMS_ITS | Encounter Summary ---
Author Name [place] Address [address] [place] [address] Care Team Providers Care Airconditioning Drafting Officer Name Role Phone TAMMIE AVALOSYA Primary Care Provider Unavailabl e Insurance Providers: [...] PART A Jul 07, 2013 PART A [id number] [phone] ARLETH SANTAMARIA PATIENT MEDICARE (WNR) MEDICARE (M) PART A Jul 07, 2013 PART A [id number] ARLETH SANTAMARIA PATIENT Selected Encounter This section includes the information on record at [place] for the Encounter. Date/Time Encounter Type Encounter Description Reason Pro vider Source Dec 25, 2023 09:01 AM Outpatient Encounter ADMIN PAT ACTIVTIES (MASNONCT) IHE Encounter Template Text not used by [place] Plan of Treatment: Future Appointments (+ 6 [...] 20 appointments. The data comes from all [place] treatment facilities. Appointment Date/Time Appointment Type Appointme nt Facility Name Dec 26, 2023 01:00 PM AMBULATORY - MEDICINE [facility] March 05, 2024 09:10 AM AMBULATORY - NONE [facility] Mar 17, 2024 03:40 PM AMBULATORY - NONE [facility] Apr 10, 2024 11:00 AM AMBULATORY - MEDICINE [facility] Apr 13, 2024 09:20 AM AMBULATORY - MEDICINE [facility] May 12, 2024 12:24 PM AMBULATORY - NONE [facility] May 18, 2024 10:45 AM AMBULATORY - MEDICINE [facility] May 18, 2024 11:00 AM [facility] Social History: Smoking Status (Most current) and Tobacco Use (All prior to encounter date) This section includes the most current, and the historical, smoking and tobacco- related health factors from the [place] facility where the Encounter took place. Current Smoking Status This section includes the most current smoking, or tobacco-related health factor, from the [place] facility where the Encounter took place. Date/Time Current Smoking Status Comment Facil ity Mar 29, 2016 05:20 AM INPT NO TOBACCO USE IN LAST 30 D [facility] Encounter Notes: All associated encounter notes This section contains the clinical notes associated to the Encounter. Date/Time Encounter Note(s) Provider Source Dec 25, 2023 09:01 AM TELEHEALTH NOTE: LOCAL TITLE: TELEHEALTH TECHNOLOGY SCREENING (TTS) STANDARD TITLE: TELEHEALTH NOTE DATE OF NOTE: DEC 25, 2023@09:01 ENTRY DATE: DEC 25, 2023@09:01:29 AUTHOR: ELLI SCHRADER EXP COSIGNER: URGENCY: STATUS: COMPLETED [place] agrees to [place] Video Connect (VVC) and has capability to complete a VVC visit. VVC capable, but declined test call and/or will perform a test call independently. Phone (texting): Device(s) they can use: Smart Phone /zach/ ELLI SCHRADER VISN [facility] Signed: 12/25/2023 09:[address] [facility]
--- OUTSIDE RECORDS SUMMARY | 2024-09-23 07:54 | XMS_ITS ---
Author Name [facility] [place] Organization [facility] [place] [place] Address [address] [place] [id number] Care Team Providers Care J2Ee Software Engineer Name Role Phone ROBBIEANAY ISABEL Primary Care Provider Riccardo rainey Insurance Providers: [...] PART A Jul 07, 2013 PART A [id number] [phone] ARLETH SANTAMARIA PATIENT MEDICARE (WNR) MEDICARE (M) PART A Jul 07, 2013 PART A [id number] ARLETH SANTAMARIA PATIENT Selected Encounter This section includes the information on record at [place] for the Encounter. Date/Time Encounter Type Encounter Description Reason Provider Source Dec 26, 2023 01:00 PM OFFICE O/P EST HI 40 MIN GENERAL INTERNAL MEDICINE ICD-10-CM Z77.021 Contact with and (suspected) exposure to benzene CATRACHITA SIDDIQI Encounter Template Text not used by [place] Assessments - Encounter Diagnoses This section includes the primary and secondary diagnoses documented for the Encounter. Date/Time Primary/Secondary Diagnosis Diagnosis Name Provider Source Dec 26, 2023 02:05 PM PRIMARY Contact with and (suspected) exposure to benzene ROQUE SIDDIQI [facility] Dec 26, 2023 02:05 PM SECONDARY Atherosclerosis of CABG w/o angina pectoris DEVANGASHAJOHNSON Jaclyn Lauren [facility] Dec 26, 2023 02:05 PM SECONDARY Contact with and exposure to other hazardous substances DEVANGROQUE Jaclyn Lauren [facility] Dec 26, 2023 02:05 PM SECONDARY Paroxysmal atrial fibrillation ROQUE SIDDIQI [facility] Dec 26, 2023 02:05 PM SECONDARY Type 2 diabetes mellitus without complications DEVANGASHAJOHNSON Jaclyn Lauren [facility] Plan of Treatment: Future Appointments (+ 6 months) and Future Tests (+/- 45 days) The Plan of Treatment section includes future care activities for the patient from [facility] [place] [facility] This section includes future appointments and future orders which are active, pending or scheduled. Future Appointments This section includes appointments that were scheduled to occur 6 months from the date of the Encounter, up to a maximum of 20 appointments. The data comes from all [facility] facilities. Appointment Date/Time Appointment Type Appointme nt Facility Name March 05, 2024 09:10 AM AMBULATORY - NONE [facility] Mar 17, 2024 03:40 PM AMBULATORY - NONE [facility] Apr 10, 2024 11:00 AM AMBULATORY - MEDICINE [facility] Apr 13, 2024 09:20 AM AMBULATORY - MEDICINE [facility] May 12, 2024 12:24 PM AMBULATORY - NONE [facility] May 18, 2024 10:45 AM AMBULATORY - MEDICINE [facility] May 18, 2024 11:00 AM AMBULATORY - MEDICINE [facility] Encounter Notes: All associated encounter notes This section contains the clinical notes associated to the Encounter. Date/Time Encounter Note(s) Provider Source Dec 26, 2023 02:05 PM C & P EXAMINATION NOTE: LOCAL TITLE: C&P EXAMINATION STANDARD TITLE: C & P EXAMINATION NOTE DATE OF NOTE: DEC 26, 2023@14:05 ENTRY DATE: DEC 26, 2023@14:05:36 AUTHOR: CATRACHITA SIDDIQI EXP COSIGNER: URGENCY: STATUS: COMPLETED See [place] registry type of exam conducted today: Environmental Health Registry PRIVACY: Reviewed Privacy Act Statement and educated that no individual identifying information will be shared with any third parties outside the [facility] without the [facility]'s consent. The Horse Branch was also advised that only non-identifiable data is used to assess conditions affecting deployed groups of Veterans. PURPOSE OF EXAM: The [facility] was advised that registry exams are limited to diagnostic and research purposes only. Treatment: Veterans with any treatment questions or concerns were encouraged to contact their primary care provider. Disability: Veterans with disability claims or questions were encouraged to contact the Veterans Benefits Administration at or online at www.va.gov/disability. PCP name and phone number: [facility] Appointment was telehealth converted to telephone: [facility] appointment was attempted but due to connectivity issues (link does not work for patient/provider, patient/provider has unstable internet connection), visit was converted to a telephone visit to continue with the appointment. Chief Complaint: Environmental Health Registry. HPI: Patient presents for [place] registry evaluation. HISTORY: Branch of Service: [place] Dates of Service: [id number] Location of Service: [place] (1968) Various locations surveying the land and sampling the soils. [place] early 1968. 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 Tests: None Reported Exposure to contaminated water at [place], provided information on same, registry form completed. Pt. informed to contact VBA to initiate claim as applicable. to be notified of test results, if any, via letter. Returned care to his PCM. /zach/ CATRACHITA SIDDIQI Nurse Practitioner Signed: 12/26/2023 14:08 CATRACHITA SIDDIQI [facility] Dec 26, 2023 12:08 PM AGENT [place] PROGR AM C & P EXAMINATION CONSULT: LOCAL TITLE: [place]ENT [place] REGISTRY EXAMINATION STANDARD TITLE: AGENT [place]ANGE PROGRAM C & P EXAMINATION CONSULT DATE OF NOTE: DEC 26, 2023@12:08 ENTRY DATE: DEC 26, 2023@12:08:40 AUTHOR: CATRACHITA SIDDIQI EXP COSIGNER: URGENCY: STATUS: COMPLETED Type of exam conducted today: [place] Registry PRIVACY: Reviewed Privacy Act Statement and educated that no individual identifying information will be shared with any third parties outside the [facility] without the [facility]'s consent. The Horse Branch was also advised that only non-identifiable data is used to assess conditions affecting deployed groups of Veterans. PURPOSE OF EXAM: The Horse Branch was advised that registry exams are limited to diagnostic and research purposes only. Treatment: Veterans with any treatment questions or concerns were encouraged to contact their primary care provider. Disability: Veterans with disability claims or questions were encouraged to contact the Veterans Benefits Administration at or online at www.va.gov/disability. PCP name and phone number: [facility] Appointment was telehealth converted to telephone: V[facility] appointment was attempted but due to connectivity issues (link does not work for patient/provider, patient/provider has unstable internet connection), visit was converted to a telephone visit to continue with the appointment. Chief Complaint: [place] Registry. HPI: Patient presents for [place] registry evaluation. HISTORY: Branch of Service: [place] Dates of Service: [phone] Location of Service: [place] (1968) Various locations surveying the land and sampling the soils. [place] early 1968. 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 Allergic rhinitis (SNOMED CT [id number]) 2. Carpal tunnel syndrome (SNOMED CT 82915816) 3. Hyperlipidemia 4. Aortic stenosis - aortic valve replacement 5. Paroxysmal atrial fibrillation 6. History of placement of stent for coronary artery disease 7. History of urinary tract infection 8. Diabetes Mellitus Type 2 ([facility] [id number]) FAMILY HISTORY: Father: at age 81 (natural causes), some skin cancer(melanoma?) Mother: at age 59 r/t complications of diabetes type II SOCIAL HISTORY: *, lives with his in their own home. 3 children, oldest daughter with 3 miscarriages youngest daughter with several surgeries (gall bladder, ovaries, etc). middle child (son) was born with a defect of the diaphragm and skeletal deformity of his legs 2 living grandchildren. 1 grandchild at age 18 r/t diabetic ketoacidosis 's disclosed one miscarriage and difficulty conceiving her children. *Denies tobacco use, e-cigarettes, vaping, alcohol use, THC, CBD or illicit drug use. 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 *Exercise includes walking and stuffer *Hobbies include cabinet building and finishing work on his log cabin MEDICATION ALLERGIES: Tramadol (documented) Metformin (reported) ENVIRONMENTAL ALLERGIES: None FOOD ALLERGIES: None PRESCRIPTION MEDICATION(S)/NON-PRESCRIP TION MEDICATION(S): Outpatient Medications Status 1) AMLODIPINE BESYLATE 10MG TAB TAKE ONE TABLET BY MOUTH ACTIVE EVERY DAY 2) APIXABAN 5MG TAB TAKE ONE TABLET BY MOUTH TWICE A DAY ACTIVE TO TREAT AND/OR PREVENT BLOOD CLOTS 3) ATORVASTATIN CALCIUM 40MG TAB TAKE ONE-HALF TABLET BY ACTIVE MOUTH EVERY DAY FOR CHOLESTEROL 4) FOLIC ACID 1MG TAB TAKE ONE TABLET BY MOUTH DAILY ACTIVE 5) GABAPENTIN 300MG CAP TAKE ONE CAPSULE BY MOUTH AT ACTIVE BEDTIME FOR SLEEP, FOR NEUROPATHY (CAN TAKE 12HRS) 6) LIDOCAINE 5% PATCH APPLY 1 PATCH TOPICALLY EVERY ACTIVE MORNING 7) LORATADINE 10MG TAB TAKE ONE TABLET BY MOUTH EVERY ACTIVE DAY FOR ALLERGY EMPLOGLIFLOZIN 12.5MG DAILY 9) METOPROLOL TARTRATE 100MG TAB TAKE ONE TABLET BY ACTIVE MOUTH EVERY 12 HOURS Non-VA Medications Status 1) Non-VA ASPIRIN 81MG EC TAB 81MG MOUTH EVERY DAY ACTIVE REVIEW OF SYSTEMS: GEN: no fatigue, fever, weight change. HEENT: no headaches, hoarseness, dysphagia does wear bilateral hearing aids for hearing loss, reports constant tinnitus. PULM: no dyspnea, orthopnea, cough. CARDIAC: no chest pain/pressure, shortness of breath, extremity swelling. History of AVR and CABG 2016. Also on apixaban for paroxysmal atrial fibrillation. Will experience occasional palpitations ABD: no pain, nausea, vomiting, diarrhea, constipation, GERD, heartburn : no urgency/frequency, hesitancy, nocturia. Horse Branch reports occasional dribbling of urine NEURO: no dizziness, syncope, tremor, paresthesia's. reports bilateral numbness/tingling of upper and lower extremities. ENDO: History of diabetes type II, no thyroid disease DERM: no rashes, currently following in dermatology for keratosis (family history of melanoma) MENTAL HEALTH: Denies history of depression/anxiety/PTSD. does have crisis hotline contact numbers if needed., PHYSICAL EXAMINATION: GEN: A&Ox3; NAD. Pleasant and cooperative, reliable historian ASSESSMENT: [place] Registry Evaluation POSITIVE FOR: *Diabetes type II *Ischemic heart disease *Peripheral neuropathy NEGATIVE FOR: Acute & Subacute Peripheral Neuropathy AL Amyloidosis Chloracne Chronic B Cell Leukemia Diabetes Mellitus Hodgkin's Disease Multiple Myeloma Non-Hodgkin's Lymphoma Parkinson's Disease Porphyria Cutanea Tarda Prostate Cancer Respiratory Cancer Soft Tissue Sarcoma PLAN: Continue to follow-up with PCP and specialty clinics for ongoing acute and chronic health conditions Tests: None Reported Exposure to [place], provided information on same, registry form completed. Pt. informed to contact VBA to initiate claim as applicable. to be notified of test results, if any, via letter. Returned care to his PCM. /zach/ CATRACHITA SIDDIQI Nurse Practitioner Signed: 12/26/2023 14:05 CATRACHITA SIDDIQI [facility]
--- OUTSIDE RECORDS SUMMARY | 2024-09-23 07:54 | XMS_ITS | Encounter Summary ---
Author Name [facility] [place] Organization [place] Address [address] [place] [address] Care Team Providers Care Dinkey Motor Operator Name Role Phone ROBBIEANAY Primary Care Provider Unavailabl e Insurance Providers: [...] PART A Jul 07, 2013 PART A [id number] [phone] ARLETH SANTAMARIA PATIENT MEDICARE (WNR) MEDICARE (M) PART A Jul 07, 2013 PART A [id number] 16A ARLETH SANTAMARIA PATIENT Selected Encounter This section includes the information on record at [place] for the Encounter. Date/Time Encounter Type Encounter Description Reason Provider Source May 12, 2024 12:24 PM Outpatient Encounter ADMIN PAT ACTIVTIES (CASANONCT) YAS VILLARREAL Jaclyn Encounter Template Text not used by [place] Plan of Treatment: Future Appointments (+ 6 [...] 20 appointments. The data comes from all [place] treatment facilities. Appointment Date/Time Appointment Type Appointme nt Facility Name May 18, 2024 10:45 AM AMBULATORY - MEDICINE [facility] May 18, 2024 11:00 AM AMBULATORY - MEDICINE [facility] Jul 03, 2024 10:45 AM AMBULATORY - MEDICINE [facility] Jul 08, 2024 11:30 AM AMBULATORY - NONE [facility] Jul 10, 2024 11:30 AM AMBULATORY - NONE [facility] Oct 12, 2024 08:00 AM AMBULATORY - MEDICINE [facility] Oct 12, 2024 08:40 AM AMBULATORY - MEDICINE [facility] Lab Results: +/- 30 days of the encounter This section includes the Chemistry and Hematology Lab Results on record with [place] for the patient. Radiology Reports and Pathology Reports are provided separately, in subsequent sections. Lab Results This section contains the Chemistry/Hematology Results that were resulted 30 days before or 30 daysafter the date of the Encounter. Date/Time Source Result Type Result - Unit Interpretation Reference Range Comment Apr 13, 2024 09:[address] [facility] ALBUMIN/CREATININE RATIO URINE Specimen Type: URINE No comment entered. Ordering Provider: ANAY AVALOS Report Released Date/Time: Apr 10, 2024 11:32 AM Reporting Lab: [facility] [id number] Performing Lab: [facility] [id number] CREATININE,UR RANDOM 37.9 mg/dL L 58.0-161.0 ALB/CREAT RATIO,UR 20.6 mg/g{creat} <29.9 ALBUMIN,UR 7.8 mg/L <29.9 Apr 13, 2024 09:[address] [facility] HEMOGLOBIN A1C Specimen Type: BLOOD Comment: Values obtained from A1C measurements can vary. For typical A1C assays, a reported value of 7.0 could actually be between 6.7 and 7.3 if measured by a reference method. A reported value of 9.0 could actually be between 8.7 and 9.3. Ref: http://www.ngs p.org/CAPdata. asp Ordering Provider: ANAY AVALOS Report Released Date/Time: Apr 10, 2024 11:32 AM Reporting Lab: [facility] [id number] Performing Lab: [facility] [id number] HEMOGLOBIN A1C 8.3 H 4.0-6.0 Apr 13, 2024 09:[address] [facility] LIPID PANEL,NON-FASTING Specimen Type: PLASMA No comment entered. Ordering Provider: ANAY AVALOS Report Released Date/Time: Apr 10, 2024 11:32 AM Reporting Lab: [facility] [id number] Performing Lab: [facility] [id number] CHOLESTEROL 130 mg/dL <199 .HDL 43 mg/dL >40 LDL CALCULATION 72 mg/dL <99 VLDL CALCULATION 15 mg/dL <29 NON HDL CHOLESTEROL 87 mg/dL <129 TRIG(NON FASTING) 73 mg/dL <149 Apr 13, 2024 09:[address] [facility] CBC Specimen Type: BLOOD No comment entered. Ordering Provider: ANAY AVALOS Report Released Date/Time: Apr 10, 2024 11:32 AM Reporting Lab: [facility] [phone] Performing Lab: [facility] [phone] WBC 5.70 10*3/uL 4.0-11.0 RBC 4.78 10*6/uL 4.6-6.2 HGB 14.8 g/dL 13.5-17.9 HCT 44.9 41-54 MCV 93.9 fL 80-100 MCH 31.0 pg 27-33 MCHC 33.0 g/dL 32.0-37.5 PLT 146 10*3/uL L 150-400 MPV 11.4 fL H 7.4-10.4 RDW 13.2 11.5-14.5 Apr 13, 2024 09:[address] [facility] COMPREHENSIVE METABOLIC PANEL+MG Specimen Type: PLASMA No comment entered. Ordering Provider: ANAY AVALOS Report Released Date/Time: Apr 10, 2024 11:32 AM Reporting Lab: [facility] [id number] Performing Lab: [facility] [phone] CREATININE 0.8 mg/dL 0.7-1.2 UREA NITROGEN 23 mg/dL 8-26 GLUCOSE 213 mg/dL H 70-100 SODIUM 138 mmol/L 136-145 POTASSIUM 4.0 mmol/L 3.5-5.1 CHLORIDE 107 mmol/L 98-107 CO2 24 mmol/L 22-29 CALCIUM 9.1 mg/dL 8.4-10.2 PROTEIN,TOTAL 6.8 g/dL 6.4-8.3 ALBUMIN 3.9 g/dL 3.5-5.2 BILIRUBIN, TOTAL 0.5 mg/dL 0.2-1.2 MAGNESIUM 2.1 mg/dL 1.6-2.6 ANION GAP 7 mmol/L 5-15 ALKALINE PHOSPHATASE 60 U/L 40-150 ALT/SGPT 16 U/L <44 AST/SGOT 28 U/L 11-34 .CREAT EGFR(CKD-EPI) >90 >60 Social History: Smoking Status (Most current) and Tobacco Use (All prior to encounter date) This section includes the most current, and the historical, smoking and tobacco- related health factors from the [place] facility where the Encounter took place. Current Smoking Status This section includes the most current smoking, or tobacco-related health factor, from the [place] facility where the Encounter took place. Date/Time Current Smoking Status Comment Facil ity Mar 29, 2016 05:20 AM INPT NO TOBACCO USE IN LAST 30 D [facility] Encounter Notes: All associated encounter notes This section contains the clinical notes associated to the Encounter. Date/Time Encounter Note(s) Provider Source May 20, 2024 11:54 AM ADDENDUM: LOCAL TITLE: Addendum STANDARD TITLE: ADDENDUM DATE OF NOTE: MAY 20, 2024@11:54:42 ENTRY DATE: MAY 20, 2024@11:54:43 AUTHOR: YAS VILLARREAL EXP COSIGNER: URGENCY: STATUS: COMPLETED Records have been requested x 3 to no avail. The Transition's team will no longer follow this case or continue to request records for this EOC. /zach/ YAS VILLARREAL Community Care teacher hearing impaired Signed: 05/20/2024 11:55 Receipt Acknowledged By: 05/20/2024 14:46 /zach/ CHADD JAMES RN Warning Coordination Meteorologist [facility] MAC RAMIREZ 05/20/2024 12:11 /zach/ ANAY AVALOS DRIVER TRAINER,DNP,ORDNANCE ENGINEERING TECHNICIAN-C === --- Original Document --- 05/11/24 [facility] PRESENTING CARE COORD PLAN NOTE: Emergency Notification Intake Date Presenting to the Facility: May Method of Contact: Notified from ECR worklist Notification ID: [id number] [facility] Referral #: [facility] Name: Hospital: [facility] Address: City: [place] State: [place] Zip Code: Phone : [facility]ending [facility] Point of Contact: Name: Phone: Chief complaint: LOW BLOOD PRESSURE Primary Diagnosis: Disposition Unknown at time of intake note entry /zach/ MERARY [facility] EXTRAS CASTING DIRECTOR Signed: 05/12/2024 12:26 Receipt Acknowledged By: 05/13/2024 08:05 /zach/ YAS VILLARREAL [facility] Care teacher hearing impaired 05/13/2024 ADDENDUM STATUS: COMPLETED Records requested and will be uploaded via Stalkthis when received /zach/ LENA MOLINA MSA Signed: 05/13/2024 10:22 Receipt Acknowledged By: 05/15/2024 08:46 /es/ MAC RAMIREZ REGISTERED NURSE 05/15/2024 ADDENDUM STATUS: COMPLETED [facility] is requesting notes. Gore Stitcher will f/u once notes are received. /es/ MAC RAMIREZ REGISTERED NURSE Signed: 05/15/2024 08:48 05/15/2024 ADDENDUM STATUS: COMPLETED Emergency Room visit notes from 2023 have been requested. /es/ MARKUS SUMMERS MSA [facility] Signed: 05/15/2024 08:51 05/15/2024 ADDENDUM STATUS: COMPLETED I sent a fax to the [facility] noted above, requesting records - ED note, and if applicable the H&P/DC summary for the 05/11/24 visit. /es/ YAS VILLARREAL [facility] Care teacher hearing impaired Signed: 05/15/2024 16:48 05/18/2024 ADDENDUM STATUS: COMPLETED I sent a fax to the [facility] noted above, requesting records - ED note, and if applicable the H&P/DC summary for the 05/11/24 visit. /indira VILLARREAL Community Care teacher hearing impaired Signed: 05/18/2024 15:01 05/18/2024 ADDENDUM STATUS: COMPLETED Please see nursing DC note from job specification writer dated 05/18/24 for details. /indira RAMIREZ REGISTERED NURSE Signed: 05/18/2024 16:54 YAS VILLARREAL [facility] May 13, 2024 10:22 AM ADDENDUM: LOCAL TITLE: Addendum STANDARD TITLE: ADDENDUM DATE OF NOTE: MAY 13, 2024@10:22:13 ENTRY DATE: MAY 13, 2024@10:22:14 AUTHOR: LENA YOO COSIGNER: URGENCY: STATUS: COMPLETED Records requested and will be uploaded via Stalkthis when received /indira YOO ADVANCED MSA Signed: 05/13/2024 10:22 Receipt Acknowledged By: 05/15/2024 08:46 /indira RAMIREZ REGISTERED NURSE === --- Original Document --- 05/11/24 [facility] PRESENTING CARE COORD PLAN NOTE: Emergency Notification Intake Date Presenting to the Facility: May Method of Contact: Notified from ECR worklist Notification ID: [id number] [facility] Referral #: [facility] Name: Hospital: [facility] Address: [facility]: [place] State: [place] Zip Code: Phone : [facility] Point of Contact: Name: Phone: Chief complaint: LOW BLOOD PRESSURE Primary Diagnosis: Disposition Unknown at time of intake note entry /zach/ [facility] EXTRAS CASTING DIRECTOR Signed: 05/12/2024 12:26 Receipt Acknowledged By: 05/13/2024 08:05 /indira VILLARREAL Community Care teacher hearing impaired LENA YOO [facility] May 11, 2024 12:25 PM NONVA NOTE: LOCAL TITLE: [facility] PRESENTING CARE COORD PLAN STANDARD TITLE: NONVA NOTE DATE OF NOTE: MAY 11, 2024@12:25 ENTRY DATE: MAY 12, 2024@12:25:23 AUTHOR: MERARY BROWN EXP COSIGNER: URGENCY: STATUS: COMPLETED [facility] PRES[facility]ARE COORD PLAN NOTE Has ADDENDA Emergency Notification Intake Date Presenting to the Facility: May Method of Contact: Notified from ECR worklist Notification ID: [id number] [facility] Referral #: [facility] Name: Hospital: [facility] Address: City: [place] State: [place] Zip Code: Phone : [facility] Point of Contact: Name: Phone: Chief complaint: LOW BLOOD PRESSURE Primary Diagnosis: Disposition Unknown at time of intake note entry /zach/ [facility] EXTRAS CASTING DIRECTOR Signed: 05/12/2024 12:26 Receipt Acknowledged By: 05/13/2024 08:05 /zach/ YAS VILLARREAL Community Care teacher hearing impaired 05/13/2024 ADDENDUM STATUS: COMPLETED Records requested and will be uploaded via Stalkthis when received /zach/ LENA MOLINA MSA Signed: 05/13/2024 10:22 Receipt Acknowledged By: 05/15/2024 08:46 /zach/ MAC RAMIREZ REGISTERED NURSE 05/15/2024 ADDENDUM STATUS: COMPLETED [facility] is requesting notes. Gore Stitcher will f/u once notes are received. /zach/ MAC RAMIREZ REGISTERED NURSE Signed: 05/15/2024 08:48 05/15/2024 ADDENDUM STATUS: COMPLETED Emergency Room visit notes from 2023 have been requested. /zach/ MARKUS SUMMERS MSA [facility] Signed: 05/15/2024 08:51 05/15/2024 ADDENDUM STATUS: COMPLETED I sent a fax to the [facility] noted above, requesting records - ED note, and if applicable the H&P/DC summary for the 05/11/24 visit. /zach/ YAS VILLARREAL Community Care teacher hearing impaired Signed: 05/15/2024 16:48 05/18/2024 ADDENDUM STATUS: COMPLETED I sent a fax to the [facility] noted above, requesting records - ED note, and if applicable the H&P/DC summary for the 05/11/24 visit. /zach/ YAS VILLARREAL Community Care teacher hearing impaired Signed: 05/18/2024 15:01 05/18/2024 ADDENDUM STATUS: COMPLETED Please see nursing DC note from job specification writer dated 05/18/24 for details. /zach/ MAC RAMIREZ REGISTERED NURSE Signed: 05/18/2024 16:54 05/20/2024 ADDENDUM STATUS: COMPLETED Records have been requested x 3 to no avail. The Transition's team will no longer follow this case or continue to request records for this EOC. /indira VILLARREAL Community Care teacher hearing impaired Signed: 05/20/2024 11:55 Receipt Acknowledged By: * AWAITING SIGNATURE * MAC RAMIREZ * AWAITING SIGNATURE * ANAY AVALOS CORE[facility] N [facility]
--- OUTSIDE RECORDS SUMMARY | 2024-09-23 07:54 | XMS_ITS | Encounter Summary ---
Author Name [facility] [place] [facility] [place] Address [address] [place] [id number] Care Team Providers Care Concrete Batcher Name Role Phone ANAY FISHER Primary Care Provider Unavailabl e Insurance Providers: [...] PART A Jul 07, 2013 PART A [id number] [phone] ARLETH SANTAMARIA PATIENT MEDICARE (WNR) MEDICARE (M) PART A Jul 07, 2013 PART A [id number] [phone] ARLETH SANTAMARIA PATIENT Selected Encounter This section includes the information on record at [place] for the Encounter. Date/Time Encounter Type Encounter Description Reason Provider Source Apr 10, 2024 11:00 AM OFFICE O/P EST HI 40 MIN PRIMARY CARE/MEDICINE ICD-10-CM E11.42 Type 2 diabetes mellitus with diabetic polyneuropathy ANAY FISHER Jaclyn Encounter Template Text not used by [place] Assessments - Encounter Diagnoses This section includes the primary and secondary diagnoses documented for the Encounter. Date/Time Primary/Secondary Diagnosis Diagnosis Name Provider Source Apr 10, 2024 12:35 PM PRIMARY Type 2 diabetes mellitus with diabetic polyneuropathy ANAY FISHER [facility] Apr 10, 2024 12:35 PM SECONDARY Encounter for general adult medical exam w abnormal findings ANAY FISHER Efrain [facility] Apr 10, 2024 12:35 PM SECONDARY Encounter for immunization MIRA METZ [facility] Apr 10, 2024 12:35 PM SECONDARY Hyperlipidemia, unspecified ROBBIEANAY ISABEL Efrain [facility] Apr 10, 2024 12:35 PM SECONDARY Paroxysmal atrial fibrillation ROBBIEANAY Efrain [facility] Apr 10, 2024 12:35 PM SECONDARY Phimosis ROBBIEANAY ISABEL Efrain [facility] Apr 10, 2024 12:35 PM SECONDARY Type 2 diabetes mellitus without complications ROBBIEANAY Efrain [facility] Plan of Treatment: Future Appointments (+ 6 months) and Future Tests (+/- 45 days) The Plan of Treatment section includes future care activities for the patient [facility] [place] [facility] This section includes future appointments and future orders which are active, pending or scheduled. Future Appointments This section includes appointments that were scheduled to occur 6 months from the date of the Encounter, up to a maximum of 20 appointments. The data comes from all [place] treatment facilities. Appointment Date/Time Appointment Type Appointme nt Facility Name Apr 13, 2024 09:20 AM AMBULATORY - MEDICINE [facility] May 12, 2024 12:24 PM AMBULATORY - NONE [facility] May 18, 2024 10:45 AM AMBULATORY - MEDICINE [facility] May 18, 2024 11:00 AM AMBULATORY - MEDICINE [facility] Jul 03, 2024 10:45 AM AMBULATORY - MEDICINE [facility] Jul 08, 2024 11:30 AM AMBULATORY - NONE [facility] Jul 10, 2024 11:30 AM AMBULATORY - NONE [facility] Lab Results: +/- 30 days of the encounter This section includes the Chemistry and Hematology Lab Results on record with [place] for the patient. Radiology Reports and Pathology Reports are provided separately, in subsequent sections. Lab Results This section contains the Chemistry/Hematology Results that were resulted 30 days before or 30 daysafter the date of the Encounter. Date/Time Source Result Type Result - Unit Interpretation Reference Range Comment Apr 13, 2024 09:29 AM [facility] ALBUMIN/CREATININE RATIO URINE Specimen Type: URINE No comment entered. Ordering Provider: ANAY FISHER Report Released Date/Time: Apr 10, 2024 11:32 AM Reporting Lab: [facility] [id number] Performing Lab: [facility] [id number] CREATININE,UR RANDOM 37.9 mg/dL L 58.0-161.0 ALB/CREAT RATIO,UR 20.6 mg/g{creat} <29.9 ALBUMIN,UR 7.8 mg/L <29.9 Apr 13, 2024 09:12 AM [facility] HEMOGLOBIN A1C Specimen Type: BLOOD Comment: Values obtained from A1C measurements can vary. For typical A1C assays, a reported value of 7.0 could actually be between 6.7 and 7.3 if measured by a reference method. A reported value of 9.0 could actually be between 8.7 and 9.3. Ref: http://www.ngs p.org/CAPdata. asp Ordering Provider: ANAY FISHER Report Released Date/Time: Apr 10, 2024 11:32 AM Reporting Lab: [facility] [id number] Performing Lab: [facility] [id number] HEMOGLOBIN A1C 8.3 H 4.0-6.0 Apr 13, 2024 09:12 AM [facility] LIPID PANEL,NON-FASTING Specimen Type: PLASMA No comment entered. Ordering Provider: ANAY FISHER Report Released Date/Time: Apr 10, 2024 11:32 AM Reporting Lab: [facility] [phone] Performing Lab: [facility] [address] CHOLESTEROL 130 mg/dL <199 .HDL 43 mg/dL >40 LDL CALCULATION 72 mg/dL <99 VLDL CALCULATION 15 mg/dL <29 NON HDL CHOLESTEROL 87 mg/dL <129 TRIG(NON FASTING) 73 mg/dL <149 Apr 13, 2024 09:12 AM [facility] CBC Specimen Type: BLOOD No comment entered. Ordering Provider: ANAY FISHER Report Released Date/Time: Apr 10, 2024 11:32 AM Reporting Lab: [facility] [id number] Performing Lab: [facility] [id number] WBC 5.70 10*3/uL 4.0-11.0 RBC 4.78 10*6/uL 4.6-6.2 HGB 14.8 g/dL 13.5-17.9 HCT 44.9 41-54 MCV 93.9 fL 80-100 MCH 31.0 pg 27-33 MCHC 33.0 g/dL 32.0-37.5 PLT 146 10*3/uL L 150-400 MPV 11.4 fL H 7.4-10.4 RDW 13.2 11.5-14.5 Apr 13, 2024 09:12 AM [facility] COMPREHENSIVE METABOLIC PANEL+MG Specimen Type: PLASMA No comment entered. Ordering Provider: ANAY FISHER Report Released Date/Time: Apr 10, 2024 11:32 AM Reporting Lab: [facility] [id number] Performing Lab: [facility] [phone] CREATININE 0.8 mg/dL 0.7-1.2 UREA NITROGEN 23 [...] 28 U/L 11-34 .CREAT EGFR(CKD-EPI) >90 >60 Vital Signs: All taken on the encounter date This section contains inpatient and outpatient Vital Signs collected on the date of the Encounter. Date/Time Temperature Pulse Blood Pressure Respiratory Rate SP02 Pain Height Weight Body Mass Index Source Apr 10, 2024 11:07 AM 97.5 56 125/73 95 199 29 [facility] Immunizations: All administered on the encounter date This section contains immunizations associated to the Encounter. Immunization Series Date Issued Reaction Comments TDAP Apr 10, 2024 Social History: Smoking Status (Most current) [...] place. Date/Time Current Smoking Status Comment Allan ity Apr 10, 2024 11:00 AM FORMER SMOKER - <1 00 LIFETIME CIGARETTES [facility] Tobacco Use History This section includes a history of the smoking, or tobacco-related health factors, that were collected on or before the date of the Encounter. The data comes from the [place] facility where the Encounter took place. Date/Time Smoking Status/Tobacco Use Comment F acility Mar 07, 2023 10:00 AM [place]-TOBACCO FORMER USER [facility] Mar 07, 2023 10:00 AM [place]AC[place] QU[place] 15 YRS OR MORE [facility] Mar 16, 2022 08:30 AM VA-TOBACCO FORMER USER [facility] Mar 16, 2022 08:30 AM [place]AC[place] QUIT 15 YRS OR MORE [facility] February 13, 2021 10:00 AM [place]-TOBAC[place] NEVER USED [facility] Mar 21, 2020 11:28 AM [place]-TOBACCO NEVER USED [facility] Mar 25, 2019 01:07 PM [place]-TOBACCO NEVER USED [facility] February 14, 2018 02:54 PM LIFETIME NON-TOBACCO USER [facility] Mar 08, 2017 11:18 AM LIFETIME NON-TOBACCO USER [facility] Jan 23, 2016 08:04 AM LIFETIME NON-TOBACCO USER [facility] Aug 02, 2014 10:35 AM FORMER TOBACCO USER 7Y OR GREATE R [facility] Jul 31, 2013 09:53 AM FORMER TOBACCO USER 7Y OR GREATE R [facility] Encounter Notes: All associated encounter notes This section contains the clinical notes associated to the Encounter. Date/Time Encounter Note(s) Provider Source Apr 16, 2024 01:19 PM ADDENDUM: LOCAL TITLE: Addendum STANDARD TITLE: ADDENDUM DATE OF NOTE: APR 16, 2024@13:19:14 ENTRY DATE: APR 16, 2024@13:19:16 AUTHOR: MAC RAMIREZ COSIGNER: URGENCY: STATUS: COMPLETED Bridge Worker Apprentice called per PCP request to f/u regarding Lucan's elevated A1c. In March of 2023 Lucan's A1c was 7.4 and now as of 04/13/24 's A1c was 8.3. PCP stated that Lucan could either increase his Empagliflozin to 25 mg daily or do lifestyle changes to assist with his DM. Lucan is opting to do lifestyle modifications first before trialing increasing his medication. Discussed exercising and lifestyle modifications with Lucan as well as basic carb counting. Lucan is very interested in visiting with [facility] Dietitian for further guidance/recommendations. Bridge Worker Apprentice will alert covering Dietitian, Julieth Nair, to please f/u with Lucan regarding DM lifestyle changes. -Alerting PCP Anay Fisher for FYI of 's decision -Alerting Dietitian Julieth Nair to please f/u with Lucan regarding DM dietary education -Alerting NAEL Richardson to please schedule Lucan for a lab only appt in 6 months please for A1c check /es/ MAC RAMIREZ REGISTERED NURSE Signed: 04/16/2024 13:26 Receipt Acknowledged By: 04/16/2024 13:52 /es/ JULIETH NAIR, MS, RDN, CDCES REGISTERED DIETITIAN 04/23/2024 10:01 /es/ MARKUS SUMMERS [facility] 04/16/2024 13:34 /es/ ANAY FISHER DIPLOMATIC COURIER,DNP,MEDIATION COMMISSIONER-C --- Original Document --- 04/10/24 [facility] PROGRESS NOTE-[facility]: Today's Nurse check-in note reviewed. Seen in clinic today respecting current PPE guidelines. Chief complaint: The patient is a 73 year old MALE here for Wellness and preventive medicine visit. The patient has no concerns today. Patient presents to clinic today for his annual wellness exam. He does have a couple concerns he like to discuss today. 1. Toenail fungus States that he had gotten medication for toenail fungus and he was applying it daily and the toenails were looking better but as soon as he stopped the medication they got thick and garcia again. He was wondering about getting the medication again. After discussion about treatment for the toenail fungus and only having 7% cure rate after a year of treatment, he is chosen to not continue to do the nail fungus medicine. 2. Skin lesions He does state that he goes to dermatology every few months due to multiple skin lesions that they have to burn off. He was last seen in the end of February. We do not have those notes at this time. States that they would like to see him again in August. 3. Phimosis States that when he was into the tire changer aircraft he was talking to the tire changer aircraft about some redness and blistering on pain on the end of his penis. He is uncircumcised. He was told by the tire changer aircraft that he thought it was a fungal infection and gave him some miconazole cream as well as some hydrocortisone cream to use. He states that the blisters are gone however he still has some soreness and some white discharge. Did discuss with him about cleaning the head of the penis and retracting the foreskin daily to make sure it is nice and clean, however, with his history of diabetes there is a chance that its more yeast infection that it is fungal infection. We will give him a prescription for nystatin cream to apply to the head of the penis. Did tell him that if its not getting better in 6 weeks to follow-up with us and let us know and we will do a referral to urology for him. Patient states that he is never smoked in the past so we will identify that on his reminder list. He is interested in getting his tetanus booster today. He was last seen a year ago. His A1c at that time was 7.4. He has not been had to have a A1c checked since then. Did discuss with him that with his diabetes I would like to see him every 6 months to make sure that his blood sugars are staying within limits. He did state that he went off the metformin and only takes the Jardiance for his diabetes. The reason he did this is because he had a grandson who ended up with diabetic ketoacidosis and at age of 19. He had read some information saying that the multiple use of metformin and Jardiance could cause him to go into ketoacidosis. He is not checking his blood sugars at home. Did discuss with him that its not uncommon for diabetics to be on both of these medications especially if they have really high A1c's. I am not sure if his grandson was a type I diabetic or type II. Though he states that he was identified as being diabetic at age 13. Patient is currently on apixaban and taking a daily aspirin. Did discuss the risk for increased bleeding due to to being on both of these. Discussed potentially taking omeprazole to help cut down on of stomach ulcers and potential bleeding risk or stopping the aspirin and just taking the apixaban. He would like to stop the aspirin and just be on the apixaban at this time. He had a positive fit test back in 2020 and was supposed to follow-up with a colonoscopy. He declined doing the colonoscopy due to thinking he was a low risk for colon cancer. Did discuss this with him today that we can do another repeat of the fit test but if it comes back positive I would highly encourage him to have the colonoscopy done Colon cancer in the early stages has no symptoms associated with it. He does state that he has a test that at home. Informed him to check the expiration date on the when he has at home if it is still unexpired he can go ahead and do that one and send it in. Review of Systems: ROS is negative, except as above. Past Medical History Active problems - Computerized Problem List is the source for the followin. Allergic rhinitis (SNOMED CT 09372961) 2. Carpal tunnel syndrome (SNOMED CT 58004576) 3. Hyperlipidemia 4. Aortic stenosis - aortic valve replacement 5. Paroxysmal atrial fibrillation 6. History of placement of stent for coronary artery disease 7. History of urinary tract infection 8. Diabetes Mellitus Type 2 ([facility] [id number]) 9. Exposure to potentially hazardous substance ([facility] [id number]) - Entered through [facility]/VISN[employer] Documentation Initiative Allergies: TRAMADOL (Apr 05, 2016) Medications: Active Outpatient Medications (including Supplies): Active Outpatient Medications Status 1) AMLODIPINE BESYLATE 10MG TAB TAKE ONE TABLET BY MOUTH ACTIVE EVERY DAY 2) AMOXICILLIN 500MG CAP TAKE FOUR CAPSULES BY MOUTH ACTIVE ONCE 60 MINUTES PRIOR TO DENTAL PROCEDURE. 3) APIXABAN 5MG TAB TAKE ONE TABLET BY MOUTH TWICE A DAY ACTIVE TO TREAT AND/OR PREVENT BLOOD CLOTS 4) ATORVASTATIN CALCIUM 20MG TAB TAKE ONE TABLET BY ACTIVE (S) MOUTH EVERY DAY FOR CHOLESTEROL 5) CETIRIZINE HCL 10MG TAB TAKE ONE TABLET BY MOUTH ACTIVE EVERY DAY FOR ALLERGIES 6) EMPAGLIFLOZIN 25MG TAB TAKE ONE-HALF TABLET BY MOUTH ACTIVE EVERY MORNING FOR DIABETES 7) FOLIC ACID 1MG TAB TAKE ONE TABLET BY MOUTH DAILY ACTIVE 8) GABAPENTIN 300MG CAP TAKE ONE CAPSULE BY MOUTH AT ACTIVE (S) BEDTIME FOR SLEEP, FOR NEUROPATHY 9) LIDOCAINE 5% OINT APPLY MODERATE AMOUNT TOPICALLY ACTIVE TWICE A DAY NEEDED FOR INCISIONAL AREA PAIN 10) METOPROLOL TARTRATE 100MG TAB TAKE ONE TABLET BY ACTIVE (S) MOUTH EVERY 12 HOURS 11) NYSTATIN 182969 UNT/GM CREAM APPLY THIN LAYER ACTIVE (S) TOPICALLY TWICE A DAY FOR YEAST INFECTION EXTERNAL USE ONLY 12) TAMSULOSIN HCL 0.4MG CAP TAKE ONE CAPSULE BY MOUTH ACTIVE (S) EVERY DAY FOR PROSTATE Physical Exam: Vitals: Temp: 97.5 F [36.4 C] (04/10/2024 11:07) Pulse:56 (04/10/2024 11:07) BP: 125/73 (04/10/2024 11:07) Resp: 16 (03/07/2023 10:19) O2 Sat: 95% (04/10/2024 11:07) Weight: 199 lb [90.26 kg] (04/10/2024 11:07) BMI: 28.6 General: Alert, well dressed and groomed, no apparent distress HEENT: Normocephalic, atraumatic, ear canals clear, TMs normal,neck supple without mass, adenopathy or thyromegaly Lungs: Clear; no wheezes, rhonchi or rales CV: RRR without murmur, rub or gallop Skin: Warm and moist, no rash or erythema. Thickened toenails MS: No joint swelling, ambulates without difficulty Psych: Good eye contact, speech normal rate and rhythm, affect full range Assessment/Plan: Wellness/screening visit completed. Active problems - Computerized Problem List is the source for the followin. Allergic rhinitis (SNOMED CT 84464985) -Continues to take allergy medication daily 2. Hyperlipidemia -He needs to have his cholesterol checked but does continue to take his atorvastatin. 3. Paroxysmal atrial fibrillation -He does take apixaban daily 4. Diabetes Mellitus Type 2 ([facility] [id number]) -We will check A1c as soon as he can make an appointment for lab. We will address the A1c at that time understands and agrees to the plan. Follow up as discussed. Sooner if questions or concerns. AAA Screening: The patient has a total smoking history of less than 100 cigarettes. Screening for AAA is not needed. PAVE Foot Check: A complete foot check was completed at this encounter. VISUAL INSPECTION: Includes inspection for skin breaks, deformity, erythema, trauma, pallor on elevation, dependent rubor, nail deformities, extensive callus and pitting edema. Visual exam results: Abnormal Observations: Thickened toenails PEDAL PULSES: Includes palpation of dorsalis and posterior tibial pulses and signs/symptoms of vascular compromise like pain, pallor, parasthesia or paralysis. Present (even if diminished) SENSORY CHECK: Includes 10 gram Monofilament ([place]-Ever) test of sensation. Intact (Greater than or equal to 80% of sites checked) Abnormal (Less than 80% of sites checked): Abnormal (decreased or absent sensation to monofilament): Comment: Does have some bilateral decreased sensation in his feet. HIGH-RISK: HIGH RISK INFORMATION PROVIDED: 1. Advised patient that extra depth footwear with soft molded inserts and braces may be required. 2. Advised patient not to walk barefoot. 3. Explained the importance of daily foot checks. 4. Stressed the importance of daily foot hygiene, including bathing, complete drying and thorough inspection for changes. The patient verbalized understanding and was offered a detailed handout on diabetic foot care. Patient declined referral to Podiatry. Will follow up with Primary Care as scheduled. /zach/ ANAY FISHER DIPLOMATIC COURIER,DNP,MEDIATION COMMISSIONER-C Signed: 04/10/2024 12:36 04/16/2024 ADDENDUM STATUS: COMPLETED Entered RT for 1:[address] /es/ JULIETH NAIR, MS, RDN, CDCES REGISTERED DIETITIAN Signed: 04/16/2024 13:52 04/23/2024 ADDENDUM STATUS: COMPLETED Lab appointment scheduled on 10/12, following PCP appointment. /zach/ MARKUS SUMMERS [facility] Signed: 04/23/2024 10:01 MAC RAMIREZ [facility] Apr 10, 2024 12:24 PM PRIMARY CARE NOTE: LOCAL TITLE: [facility] PROGRESS NOTE-[facility] STANDARD TITLE: PRIMARY CARE NOTE DATE OF NOTE: APR 10, 2024@12:24 ENTRY DATE: APR 10, 2024@12:24:57 AUTHOR: ANAY FISHER EXP COSIGNER: URGENCY: STATUS: COMPLETED [facility] PROGRESS NOTE-[facility] Has ADDENDA Today's Nurse check-in note reviewed. Seen in clinic today respecting current PPE guidelines. Chief complaint: The patient is a 73 year old MALE here for Wellness and preventive medicine visit. The patient has no concerns today. Patient presents to clinic today for his annual wellness exam. He does have a couple concerns he like to discuss today. 1. Toenail fungus States that he had gotten medication for toenail fungus and he was applying it daily and the toenails were looking better but as soon as he stopped the medication they got thick and garcia again. He was wondering about getting the medication again. After discussion about treatment for the toenail fungus and only having 7% cure rate after a year of treatment, he is chosen to not continue to do the nail fungus medicine. 2. Skin lesions He does state that he goes to dermatology every few months due to multiple skin lesions that they have to burn off. He was last seen in the end of February. We do not have those notes at this time. States that they would like to see him again in August. 3. Phimosis States that when he was into the tire changer aircraft he was talking to the tire changer aircraft about some redness and blistering on pain on the end of his penis. He is uncircumcised. He was told by the tire changer aircraft that he thought it was a fungal infection and gave him some miconazole cream as well as some hydrocortisone cream to use. He states that the blisters are gone however he still has some soreness and some white discharge. Did discuss with him about cleaning the head of the penis and retracting the foreskin daily to make sure it is nice and clean, however, with his history of diabetes there is a chance that its more yeast infection that it is fungal infection. We will give him a prescription for nystatin cream to apply to the head of the penis. Did tell him that if its not getting better in 6 weeks to follow-up with us and let us know and we will do a referral to urology for him. Patient states that he is never smoked in the past so we will identify that on his reminder list. He is interested in getting his tetanus booster today. He was last seen a year ago. His A1c at that time was 7.4. He has not been had to have a A1c checked since then. Did discuss with him that with his diabetes I would like to see him every 6 months to make sure that his blood sugars are staying within limits. He did state that he went off the metformin and only takes the Jardiance for his diabetes. The reason he did this is because he had a grandson who ended up with diabetic ketoacidosis and at age of 19. He had read some information saying that the multiple use of metformin and Jardiance could cause him to go into ketoacidosis. He is not checking his blood sugars at home. Did discuss with him that its not uncommon for diabetics to be on both of these medications especially if they have really high A1c's. I am not sure if his grandson was a type I diabetic or type II. Though he states that he was identified as being diabetic at age 13. Patient is currently on apixaban and taking a daily aspirin. Did discuss the risk for increased bleeding due to to being on both of these. Discussed potentially taking omeprazole to help cut down on of stomach ulcers and potential bleeding risk or stopping the aspirin and just taking the apixaban. He would like to stop the aspirin and just be on the apixaban at this time. He had a positive fit test back in 2020 and was supposed to follow-up with a colonoscopy. He declined doing the colonoscopy due to thinking he was a low risk for colon cancer. Did discuss this with him today that we can do another repeat of the fit test but if it comes back positive I would highly encourage him to have the colonoscopy done Colon cancer in the early stages has no symptoms associated with it. He does state that he has a test that at home. Informed him to check the expiration date on the when he has at home if it is still unexpired he can go ahead and do that one and send it in. Review of Systems: ROS is negative, except as above. Past Medical History Active problems - Computerized Problem List is the source for the followin. Allergic rhinitis (SNOMED CT 73602839) 2. Carpal tunnel syndrome (SNOMED CT 75388527) 3. Hyperlipidemia 4. Aortic stenosis - aortic valve replacement 5. Paroxysmal atrial fibrillation 6. History of placement of stent for coronary artery disease 7. History of urinary tract infection 8. Diabetes Mellitus Type 2 ([facility] [id number]) 9. Exposure to potentially hazardous substance ([facility] [id number]) - Entered through [facility]/[employer] Documentation Initiative Allergies: TRAMADOL (Apr 05, 2016) Medications: Active Outpatient Medications (including Supplies): Active Outpatient Medications Status 1) AMLODIPINE BESYLATE 10MG TAB TAKE ONE TABLET BY MOUTH ACTIVE EVERY DAY 2) AMOXICILLIN 500MG CAP TAKE FOUR CAPSULES BY MOUTH ACTIVE ONCE 60 MINUTES PRIOR TO DENTAL PROCEDURE. 3) APIXABAN 5MG TAB TAKE ONE TABLET BY MOUTH TWICE A DAY ACTIVE TO TREAT AND/OR PREVENT BLOOD CLOTS 4) ATORVASTATIN CALCIUM 20MG TAB TAKE ONE TABLET BY ACTIVE (S) MOUTH EVERY DAY FOR CHOLESTEROL 5) CETIRIZINE HCL 10MG TAB TAKE ONE TABLET BY MOUTH ACTIVE EVERY DAY FOR ALLERGIES 6) EMPAGLIFLOZIN 25MG TAB TAKE ONE-HALF TABLET BY MOUTH ACTIVE EVERY MORNING FOR DIABETES 7) FOLIC ACID 1MG TAB TAKE ONE TABLET BY MOUTH DAILY ACTIVE 8) GABAPENTIN 300MG CAP TAKE ONE CAPSULE BY MOUTH AT ACTIVE (S) BEDTIME FOR SLEEP, FOR NEUROPATHY 9) LIDOCAINE 5% OINT APPLY MODERATE AMOUNT TOPICALLY ACTIVE TWICE A DAY NEEDED FOR INCISIONAL AREA PAIN 10) METOPROLOL TARTRATE 100MG TAB TAKE ONE TABLET BY ACTIVE (S) MOUTH EVERY 12 HOURS 11) NYSTATIN 170106 UNT/GM CREAM APPLY THIN LAYER ACTIVE (S) TOPICALLY TWICE A DAY FOR YEAST INFECTION EXTERNAL USE ONLY 12) TAMSULOSIN HCL 0.4MG CAP TAKE ONE CAPSULE BY MOUTH ACTIVE (S) EVERY DAY FOR PROSTATE Physical Exam: Vitals: Temp: 97.5 F [36.4 C] (04/10/2024 11:07) Pulse:56 (04/10/2024 11:07) BP: 125/73 (04/10/2024 11:07) Resp: 16 (03/07/2023 10:19) O2 Sat: 95% (04/10/2024 11:07) Weight: 199 lb [90.26 kg] (04/10/2024 11:07) BMI: 28.6 General: Alert, well dressed and groomed, no apparent distress HEENT: Normocephalic, atraumatic, ear canals clear, TMs normal,neck supple without mass, adenopathy or thyromegaly Lungs: Clear; no wheezes, rhonchi or rales CV: RRR without murmur, rub or gallop Skin: Warm and moist, no rash or erythema. Thickened toenails MS: No joint swelling, ambulates without difficulty Psych: Good eye contact, speech normal rate and rhythm, affect full range Assessment/Plan: Wellness/screening visit completed. Active problems - Computerized Problem List is the source for the followin. Allergic rhinitis (SNOMED CT [id number]) -Continues to take allergy medication daily 2. Hyperlipidemia -He needs to have his cholesterol checked but does continue to take his atorvastatin. 3. Paroxysmal atrial fibrillation -He does take apixaban daily 4. Diabetes Mellitus Type 2 ([facility] [id number]) -We will check A1c as soon as he can make an appointment for lab. We will address the A1c at that time Lucan understands and agrees to the plan. Follow up as discussed. Sooner if questions or concerns. AAA Screening: The patient has a total smoking history of less than 100 cigarettes. Screening for AAA is not needed. PAVE Foot Check: A complete foot check was completed at this encounter. VISUAL INSPECTION: Includes inspection for skin breaks, deformity, erythema, trauma, pallor on elevation, dependent rubor, nail deformities, extensive callus and pitting edema. Visual exam results: Abnormal Observations: Thickened toenails PEDAL PULSES: Includes palpation of dorsalis and posterior tibial pulses and signs/symptoms of vascular compromise like pain, pallor, parasthesia or paralysis. Present (even if diminished) SENSORY CHECK: Includes 10 gram Monofilament ([place]-Ever) test of sensation. Intact (Greater than or equal to 80% of sites checked) Abnormal (Less than 80% of sites checked): Abnormal (decreased or absent sensation to monofilament): Comment: Does have some bilateral decreased sensation in his feet. HIGH-RISK: HIGH RISK INFORMATION PROVIDED: 1. Advised patient that extra depth footwear with soft molded inserts and braces may be required. 2. Advised patient not to walk barefoot. 3. Explained the importance of daily foot checks. 4. Stressed the importance of daily foot hygiene, including bathing, complete drying and thorough inspection for changes. The patient verbalized understanding and was offered a detailed handout on diabetic foot care. Patient declined referral to Podiatry. Will follow up with Primary Care as scheduled. /es/ ANAY FISHER APRN,DNP,MEDIATION COMMISSIONER-C Signed: 04/10/2024 12:36 04/16/2024 ADDENDUM STATUS: COMPLETED Bridge Worker Apprentice called Lucan per PCP request to f/u regarding 's elevated A1c. In March of 2023 Lucan's A1c was 7.4 and now as of 04/13/24 Lucan's A1c was 8.3. PCP stated that could either increase his Empagliflozin to 25 mg daily or do lifestyle changes to assist with his DM. is opting to do lifestyle modifications first before trialing increasing his medication. Discussed exercising and lifestyle modifications with Lucan as well as basic carb counting. is very interested in visiting with [facility] Dietitian for further guidance/recommendations. Bridge Worker Apprentice will alert covering Dietitian, Julieth Nair, to please f/u with regarding DM lifestyle changes. -Alerting PCP Anay Fisher for FYI of Lucan's decision -Alerting Dietitian Julieth Nair to please f/u with Lucan regarding DM dietary education -Alerting NAEL Richardson to please schedule Lucan for a lab only appt in 6 months please for A1c check /zach/ MAC RAMIREZ REGISTERED NURSE Signed: 04/16/2024 13:26 Receipt Acknowledged By: 04/16/2024 13:52 /es/ JULIETH NAIR, MS, RDN, CDCES REGISTERED DIETITIAN 04/23/2024 10:01 /zach/ MARKUS SUMMERS [facility] 04/16/2024 13:34 /zach/ ANAY FISHER DIPLOMATIC COURIER,DNP,MEDIATION COMMISSIONER-C 04/16/2024 ADDENDUM STATUS: COMPLETED Entered RTC for 1:[address] /zach/ JULIETH NAIR MS, RDN, CDCES REGISTERED DIETITIAN Signed: 04/16/2024 13:52 04/23/2024 ADDENDUM STATUS: COMPLETED Lab appointment scheduled on 10/12, following PCP appointment. /zach/ MARKUS SUMMERS [facility] Signed: 04/23/2024 10:01 ANAY FISHER [facility] Apr 10, 2024 11:06 AM INTERNAL MEDICINE OUTPATIENT NOTE: LOCAL TITLE: MEDICINE CLINIC NURSING NOTE STANDARD TITLE: INTERNAL MEDICINE OUTPATIENT NOTE DATE OF NOTE: APR 10, 2024@11:06 ENTRY DATE: APR 10, 2024@11:07:08 AUTHOR: DEANN METZ EXP COSIGNER: URGENCY: STATUS: COMPLETED MEDICINE CLINIC NURSING NOTE Has ADDENDA TYPE OF VISIT: Appointment Check In Type of appointment: In-person appointment REASON FOR VISIT: Annual ALLERGIES: TRAMADOL (Apr 05, 2016) VITAL SIGNS: Blood Pressure: 125/73 (04/10/2024 11:07) Pulse: 56 (04/10/2024 11:07) Respiration: 16 (03/07/2023 10:19) Temperature: 97.5 F [36.4 C] (04/10/2024 11:07) Weight: 199 lb [90.26 kg] (04/10/2024 11:07) Height: 70 in [177.8 cm] (03/07/2023 10:19) BMI: 28.6 O2 Sat: 95% (04/10/2024 11:07) Pain: 0 (03/07/2023 10:19) PAIN SCREEN: Patient is not having significant pain that they wish to discuss with their provider today. /zach/ DEANN METZ RN RN, [facility] Signed: 04/10/2024 11:10 04/10/2024 ADDENDUM STATUS: COMPLETED Td / Tdap Immunization: Administered: TDAP Date Administered: Apr 10, 2024 11:00 Credit Risk Management Director: Kite Lot: [id number] Exp Date: Aug 31, 2024 Admin Route/Site: INTRAMUSCULAR/LEFT DELTOID Dosage: 0.5mL Vaccine Information Statement(s): TDAP (TETANUS, DIPHTHERIA, PERTUSSIS) VACCINE VIS May 12, 2021 (MALIAN) Order By: Policy Administered By: Deann Metz Vaccine Information Sheet (VIS) was given to the patient/caregiver, education regarding adverse reactions was discussed, as well as barriers to learning, if any, were acknowledged. /zach/ DEANN METZ RN RN, [facility] Signed: 04/10/2024 12:23 DEANN METZ [facility]
--- OUTSIDE RECORDS SUMMARY | 2024-09-23 07:54 | XMS_ITS | Encounter Summary ---
Author Name [facility] [place] Organization [facility] [place] Address [address] [place] [id number] Care Team Providers Care Well Tester Name Role Phone ANAY AVALOS Primary Care [...] PART A Jul 07, 2013 PART A [id number] ARLETH SANTAMARIA PATIENT MEDICARE (WNR) MEDICARE (M) PART A Jul 07, 2013 PART A [id number] 16A ARLETH SANTAMARIA PATIENT Selected Encounter This section includes the information on record at [place] for the Encounter. Date/Time Encounter Type Encounter Description Reason Pro vider Source Mar 17, 2024 03:40 PM Outpatient Encounter COMMUNITY CARE CONSULT IHE Encounter Template Text not used by [place] Plan of Treatment: Future Appointments (+ 6 [...] 20 appointments. The data comes from all [place] treatment facilities. Appointment Date/Time Appointment Type Appointme nt Facility Name Apr 10, 2024 11:00 AM AMBULATORY - MEDICINE [facility] Apr 13, 2024 09:20 AM AMBULATORY - MEDICINE [facility] May 12, 2024 12:24 PM AMBULATORY - NONE [facility] May 18, 2024 10:45 AM [...] and Hematology Lab Results on record with [place] for the patient. Radiology Reports and Pathology [...] Apr 10, 2024 11:32 AM Reporting Lab: [facility] [id number] Performing Lab: [facility] [id number] CREATININE,UR RANDOM 37.9 mg/dL L 58.0-161.0 ALB/CREAT [...] Apr 10, 2024 11:32 AM Reporting Lab: [facility] [id number] Performing Lab: [facility] [id number] HEMOGLOBIN A1C 8.3 H 4.0-6.0 Apr 13, 2024 09:12 AM [facility] LIPID PANEL,NON-FASTING Specimen Type: PLASMA No comment entered. Ordering Provider: ANAY AVALOS Report Released Date/Time: Apr 10, 2024 11:32 AM Reporting Lab: [facility] [id number] Performing Lab: [facility] [phone] CHOLESTEROL 130 mg/dL <199 .HDL 43 mg/dL >40 LDL CALCULATION 72 mg/dL <99 VLDL CALCULATION 15 mg/dL <29 NON HDL CHOLESTEROL 87 mg/dL <129 TRIG(NON FASTING) 73 mg/dL <149 Apr 13, 2024 09:12 AM [facility] CBC Specimen Type: BLOOD No comment entered. Ordering Provider: ANAY AVALOS Report Released Date/Time: Apr 10, 2024 11:32 AM Reporting Lab: [facility] [id number] Performing Lab: [facility] [id number] WBC 5.70 10*3/uL 4.0-11.0 RBC 4.78 10*6/uL [...] Apr 10, 2024 11:32 AM Reporting Lab: [facility] [id number] Performing Lab: [facility] [id number] CREATININE 0.8 mg/dL 0.7-1.2 UREA NITROGEN 23 [...] and tobacco- related health factors from the [place] facility where the Encounter took place. Current Smoking Status This section includes the most current smoking, or tobacco-related health factor, from the [place] facility where the Encounter took place. Date/Time Current Smoking Status Comment Facil ity Mar 29, 2016 05:20 AM INPT NO TOBACCO USE IN LAST 30 D [facility] Encounter Notes: All associated encounter notes This section contains the clinical notes associated to the Encounter. Date/Time Encounter Note(s) Provider Source Apr 06, 2024 03:32 PM ADMINISTRATIVE NOT E: LOCAL TITLE: PRE VISIT SUMMARY NOTE STANDARD TITLE: ADMINISTRATIVE NOTE DICT DATE: APR 06, 2024@15:32:32 ENTRY DATE: APR 06, 2024@15:32:32 DICTATED BY: MARK PEREYRA EXP COSIGNER: URGENCY: STATUS: COMPLETED INCLUDED IN THIS LIST: Alphabetical list of active outpatient prescriptions dispensed from this [place] (local) and dispensed from another [place] or [facility] facility (remote) as well as inpatient orders (local pending and active), local clinic medications, locally documented non-VA medications, and local prescriptions that have or been discontinued in the past 90 days. NOTE The display of VA prescriptions dispensed from another VA or DoD facility (remote) is limited to active outpatient prescription entries matched to National Drug File at the originating site and may not include some items such as investigational drugs, compounds, etc. MEDICATIONS Amlodipine Besylate 10mg Tab TAKE ONE TABLET BY MOUTH EVERY DAY Rx #: [id number] Pharmacy: [facility] Ordering Provider: ANAY AVALOS Status: ACTIVE Quantity: 90 for 90 days Refills Remainin Expires: February 24, 2025 Last Filled: February 24, 2024 Amlodipine Besylate 10mg Tab TAKE ONE TABLET BY MOUTH EVERY DAY Rx #: [id number] Pharmacy: [facility] Ordering Provider: MOIRA PIÑA Status: DISCONTINUED Quantity: 90 for 90 days Refills Remainin Expires: Mar 07, 2024 Discontinued: February 24, 2024 Last Filled: Nov 25, 2023 Amoxicillin 500mg Cap TAKE FOUR CAPSULES BY MOUTH ONCE 60 MINUTES PRIOR TO DENTAL PROCEDURE. Indication: DENTAL PROPHYLAXIS Rx #: [id number] Pharmacy: [facility] Ordering Provider: CALIN RAMIREZ Status: ACTIVE Quantity: 12 for 90 days Refills Remainin Expires: Nov 15, 2024 Last Filled: Nov 15, 2023 Apixaban 5mg Tab TAKE ONE TABLET BY MOUTH TWICE A DAY TO TREAT AND/OR PREVENT BLOOD CLOTS Rx #: [id number] Pharmacy: [facility] Ordering Provider: ALMA MANTILLA Status: ACTIVE Quantity: 180 for 90 days Refills Remainin Expires: Jun 04, 2024 Last Filled: February 21, 2024 Atorvastatin Calcium 20mg Tab TAKE ONE TABLET BY MOUTH EVERY DAY FOR CHOLESTEROL Indication: FOR CHOLESTEROL Rx #: [id number] Pharmacy: [facility] Ordering Provider: MOIRA PIÑA Status: Quantity: 90 for 90 days Refills Remainin Expires: Mar 07, 2024 Last Filled: February 21, 2024 Cetirizine Hcl 10mg Tab TAKE ONE TABLET BY MOUTH EVERY DAY FOR ALLERGIES Indication: FOR ALLERGIES Rx #: [id number] Pharmacy: [facility] Ordering Provider: ANAY AVALOS Status: ACTIVE Quantity: 90 for 90 days Refills Remainin Expires: February 24, 2025 Last Filled: February 24, 2024 Cetirizine Hcl 10mg Tab TAKE ONE TABLET BY MOUTH EVERY DAY FOR ALLERGIES Indication: FOR ALLERGIES Rx #: [id number] Pharmacy: [facility] Ordering Provider: MOIRA PIÑA Status: DISCONTINUED Quantity: 90 for 90 days Refills Remainin Expires: Mar 07, 2024 Discontinued: February 24, 2024 Last Filled: Nov 25, 2023 Empagliflozin 25mg Tab TAKE ONE-HALF TABLET BY MOUTH EVERY MORNING FOR DIABETES Indication: FOR DIABETES Rx #: [id number] Pharmacy: [facility] Ordering Provider: ANAY AVALOS Status: ACTIVE Quantity: 45 for 90 days Refills Remainin Expires: February 24, 2025 Last Filled: Mar 12, 2024 Empagliflozin 25mg Tab TAKE ONE-HALF TABLET BY MOUTH EVERY MORNING FOR DIABETES Indication: FOR DIABETES Rx #: [id number] Pharmacy: [facility] Ordering Provider: MOIRA PIÑA Status: DISCONTINUED Quantity: 45 for 90 days Refills Remainin Expires: Mar 10, 2024 Discontinued: February 24, 2024 Last Filled: Nov 27, 2023 Empagliflozin 25mg Tab TAKE ONE-HALF TABLET BY MOUTH EVERY MORNING FOR DIABETES Indication: FOR DIABETES Rx #: [id number] Pharmacy: [facility] Ordering Provider: ANAY AVALOS Status: DISCONTINUED Quantity: 45 for 90 days Refills Remainin Expires: February 24, 2025 Discontinued: Mar 12, 2024 Last Filled: February 25, 2024 Folic Acid 1mg Tab TAKE ONE TABLET BY MOUTH DAILY Rx #: [id number] Pharmacy: [facility] Ordering Provider: ANAY AVALOS Status: ACTIVE Quantity: 90 for 90 days Refills Remainin Expires: February 24, 2025 Last Filled: February 26, 2024 Folic Acid 1mg Tab TAKE ONE TABLET BY MOUTH DAILY Rx #: [id number] Pharmacy: [facility] Ordering Provider: JUMANA VINES Status: DISCONTINUED Quantity: 90 for 90 days Refills Remainin Expires: February 27, 2024 Discontinued: February 24, 2024 Last Filled: Nov 28, 2023 Gabapentin 300mg Cap TAKE ONE CAPSULE BY MOUTH AT BEDTIME FOR SLEEP, FOR NEUROPATHY Rx #: [id number] Pharmacy: [facility] Ordering Provider: MOIRA PIÑA Status: Quantity: 90 for 90 days Refills Remainin Expires: Mar 07, 2024 Last Filled: Jan 30, 2024 Lidocaine 5% Oint APPLY MODERATE AMOUNT TOPICALLY TWICE A DAY NEEDED FOR INCISIONAL AREA PAIN Indication: FOR INCISIONAL AREA PAIN Rx #: [id number] Pharmacy: [facility] Ordering Provider: CALIN RAMIREZ Status: ACTIVE Quantity: 210 for 90 days Refills Remainin Expires: Aug 20, 2024 Last Filled: Aug 21, 2023 Metformin Hcl 1000mg Tab TAKE ONE TABLET BY MOUTH TWICE A DAY FOR DIABETES - TAKE WITH FOOD Rx #: [id number] Pharmacy: [facility] Ordering Provider: MOIRA PIÑA Status: Quantity: 180 for 90 days Refills Remainin Expires: Mar 07, 2024 Last Filled: Mar 17, 2023 Metoprolol Tartrate 100mg Tab TAKE ONE TABLET BY MOUTH EVERY 12 HOURS Rx #: [id number] Pharmacy: [facility] Ordering Provider: MOIRA PIÑA Status: Quantity: 180 for 90 days Refills Remainin Expires: Mar 07, 2024 Last Filled: February 21, 2024 Tamsulosin Hcl 0.4mg Cap TAKE ONE CAPSULE BY MOUTH DAILY Rx #: [id number] Pharmacy: [facility] Ordering Provider: MOIRA PIÑA Status: ACTIVE Quantity: 30 for 30 days Refills Remainin Expires: Jun 17, 2024 Last Filled: Apr 02, 2024 Aspirin 81mg Ec Tab Sig: TAKE 81MG BY MOUTH EVERY DAY Documenting Facility: [facility] Non-ND Meds Last Documented On: FOR NURSING USE ONLY: [] JEWELRY RACKER review of medications completed completed: printed list is correct: PUT THIS SHEET IN RED DOG. [] JEWELRY RACKER review of medications completed: corrections made below: PUT THIS SHEET IN RED DOG [] JEWELRY RACKER review of medications not completed: GIVE THIS SHEET TO PATIENT TO REVIEW END OF NURSING USE SECTION SCANNED DOCUMENT SIGNATURE NOT REQUIRED Electronically Filed: 04/06/2024 by: MARK [facility]
--- OUTSIDE RECORDS SUMMARY | 2024-09-23 07:54 | XMS_ITS | Encounter Summary ---
Author Name [facility] [place] Organization [facility] [place] [facility] [place] Address [address] [place] [id number] Care Team Providers Care Fire Range Technician Name Role Phone ANAY AVALOS Primary Care [...] PART A Jul 07, 2013 PART A [id number] ARLETH SANTAMARIA PATIENT MEDICARE (WNR) MEDICARE (M) PART A Jul 07, 2013 PART A [id number] 16A ARLETH SANTAMARIA PATIENT Selected Encounter This section includes the information on record at [place] for the Encounter. Date/Time Encounter Type Encounter Description Reason Pro vider Source Feb 04, 2024 12:00 PM Outpatient Encounter PRIMARY CARE/MEDICINE IHE Encounter Template Text not used by [place] Plan of Treatment: Future Appointments (+ 6 [...] 20 appointments. The data comes from all [place] treatment facilities. Appointment Date/Time Appointment Type Appointme nt Facility Name March 05, 2024 09:10 AM AMBULATORY - NONE [facility] Mar 17, 2024 03:40 PM AMBULATORY - NONE [facility] Apr 10, 2024 11:00 AM AMBULATORY - MEDICINE [facility] Apr 13, 2024 09:20 AM AMBULATORY - MEDICINE [facility] May 12, 2024 12:24 PM AMBULATORY - NONE [facility] May 18, 2024 10:45 AM AMBULATORY - MEDICINE [facility] May 18, 2024 11:00 AM AMBULATORY - MEDICINE [facility] Jul 03, 2024 10:45 AM AMBULATORY - MEDICINE [facility] Jul 08, 2024 11:30 AM AMBULATORY - NONE [facility] Jul 10, 2024 11:30 AM AMBULATORY - NONE [facility] Social History: Smoking Status (Most current) and Tobacco Use (All prior to encounter date) This section includes the most current, and the historical, smoking and tobacco- related health factors from the [place] facility where the Encounter took place. Current Smoking Status This section includes the most current smoking, or tobacco-related health factor, from the [place] facility where the Encounter took place. Date/Time Current Smoking Status Comment Facil ity Mar 29, 2016 05:20 AM INPT NO TOBACCO USE IN LAST 30 D [facility] Encounter Notes: All associated encounter notes This section contains the clinical notes associated to the Encounter. Date/Time Encounter Note(s) Provider Source Feb 04, 2024 12:00 PM NONVA CONSULT: LOCAL TITLE: COMMUNITY CARE CONSULT RESULT DERMATOLOGY STANDARD TITLE: NONVA CONSULT DATE OF NOTE: FEB 04, 2024@12:00 ENTRY DATE: FEBRUARY 05, 2024@13:58:39 AUTHOR: SUZANNE MATOS EXP COSIGNER: URGENCY: STATUS: COMPLETED VistA Imaging - Scanned Document RFAS SCANNED DOCUMENT SIGNATURE NOT REQUIRED Electronically Filed: 02/05/2024 by: SUZANNE MATOS MSN, RN- COMMUNITY MAINTENANCE JOURNEYMAN SUZANNE MATOS [facility]
--- OUTSIDE RECORDS SUMMARY | 2024-09-23 07:54 | XMS_ITS | Encounter Summary ---
Author Name [facility] [place] Organization [place] Address [address] [place] [address] Care Team Providers Care Industrial Energy Engineer Name Role Phone ANAY AVALOS Primary [...] PART A Jul 07, 2013 PART A [id number] [phone] ARLETH SANTAMARIA PATIENT MEDICARE (WNR) MEDICARE (M) PART A Jul 07, 2013 PART A [id number] 16A [phone] ARLETH SANTAMARIA PATIENT Selected Encounter This section includes the information on record at [place] for the Encounter. Date/Time Encounter Type Encounter Description Reason Pro vider Source Oct 08, 2023 01:31 PM Outpatient Encounter CLINICAL PHARMACY IHE Encounter Template Text not used by [place] Plan of Treatment: Future Appointments (+ 6 months) and Future Tests (+/- 45 days) The Plan of Treatment section includes future care activities for the patient from all [place] treatmentfacilities. This section includes future appointments and future orders which are active, pending or scheduled. Future Appointments This section includes appointments that were scheduled to occur 6 months from the date of the Encounter, up to a maximum of 20 appointments. The data comes from all [place] treatment facilities. Appointment Date/Time Appointment Type Appointme nt Facility Name Nov 06, 2023 10:15 AM [facility]BULATORY - [facility]ICINE [facility] Nov 06, 2023 10:20 AM [facility]BULATORY - MEDICINE [facility] Dec 26, 2023 01:00 PM AMBULATORY - MEDICINE [facility] March 05, 2024 09:10 AM AMBULATORY - NONE [facility] Mar 17, 2024 03:40 PM AMBULATORY - NONE [facility] Lab Results: +/- 30 days of the encounter This section includes the Chemistry and Hematology Lab Results on record with [place] for the patient. Radiology Reports and Pathology Reports are provided separately, in subsequent sections. Lab Results This section contains the Chemistry/Hematology Results that were resulted 30 days before or 30 daysafter the date of the Encounter. Date/Time Source Result Type Result - Unit Interpretation Reference Range Comment Nov 06, 2023 09:42 AM [facility] CREATININE(INCLUDES EGFR) Specimen Type: PLASMA No comment entered. Ordering Provider: BRISA ARRINGTON Report Released Date/Time: Oct 08, 2023 02:51 PM Reporting Lab: [facility] [id number] Performing Lab: [facility] [id number] CREATININE 1.0 mg/dL 0.7-1.2 .CREAT EGFR(CKD-EPI ) 78 >60 Nov 06, 2023 09:42 AM [facility] AST/SGOT Specimen Type: PLASMA No comment entered. Ordering Provider: BRISA ARRINGTON Report Released Date/Time: Oct 08, 2023 02:51 PM Reporting Lab: [facility] [id number] Performing Lab: [facility] [address] AST/SGOT 18 U/L <34 Nov 06, 2023 09:42 AM [facility] CBC Specimen Type: BLOOD No comment entered. Ordering Provider: BRISA ARRINGTON Report Released Date/Time: Oct 08, 2023 02:51 PM Reporting Lab: [facility] [address] Performing Lab: [facility] [address] WBC 7.03 10*3/uL 4.0-11.0 RBC 5.27 10*6/uL 4.6-6.2 HGB 16.5 g/dL 13.5-17.9 HCT 49.2 41-54 MCV 93.4 fL 80-100 MCH 31.3 pg 27-33 MCHC 33.5 g/dL 32.0-37.5 PLT 174 10*3/uL 150-400 MPV 11.2 fL H 7.4-10.4 RDW 12.9 11.5-14.5 Nov 06, 2023 09:42 AM [facility] ALT/SGPT Specimen Type: PLASMA No comment entered. Ordering Provider: BRISA ARRINGTON Report Released Date/Time: Oct 08, 2023 02:51 PM Reporting Lab: [facility] [id number] Performing Lab: [facility] [address] ALT/SGPT 17 U/L <55 Social History: Smoking Status (Most current) and Tobacco Use (All prior to encounter date) This section includes the most current, and the historical, smoking and tobacco- related health factors from the [place] facility where the Encounter took place. Current Smoking Status This section includes the most current smoking, or tobacco-related health factor, from the [place] facility where the Encounter took place. Date/Time Current Smoking Status Comment Facil ity Mar 29, 2016 05:20 AM INPT NO TOBACCO USE IN LAST 30 D AYS [facility] Encounter Notes: All associated encounter notes This section contains the clinical notes associated to the Encounter. Date/Time Encounter Note(s) Provider Source Oct 08, 2023 01:31 PM LETTERS: LOCAL TITLE: FOLLOW UP RESULTS LETTER STANDARD TITLE: LETTERS DATE OF NOTE: OCT 08, 2023@13:31 ENTRY DATE: OCT 08, 2023@13:31:14 AUTHOR: IVELISSE HALL EXP COSIGNER: URGENCY: STATUS: COMPLETED SUBJECT: [facility] [place] [address] Oct MILI SANTAMARIA [address] [address] [facility] [address] Dear : We are following up on your anticoagulant (blood thinner) medication, Apixaban. We require non-fasting labs (complete blood count, serum creatinine, liver function) every 6-12 months to ensure your anticoagulant is safe to continue. The complete blood count measures hemoglobin and platelets, which can alert us to possible bleeding issues. The creatinine measures kidney function and helps us determine the correct medication dose. The liver function monitors that your liver is working well. You are due for labs. To prevent any interruptions in getting your anticoagulant, please call us at [phone], option 1 to schedule a lab appointment at your nearest [place] location. Once scheduled, report to the lab area on the day of your appointment. We hope you are doing well. Thank you for your service and we look forward to hearing from you. Sincerely, [facility] Team --- Phone number: [phone] -option 1 to schedule or reschedule an appointment -option 2 to refill medications or call the phone number on the bottle -option 3 for all other communication Fax number: [phone] Clinic Hours: Saturday-Saturday, 8:00am to 4:00pm (excluding Federal holidays) IVELISSE HALL SCALE RECLAMATION TENDER IVELISSE HALL [facility]
--- OUTSIDE RECORDS SUMMARY | 2024-09-23 07:54 | XMS_ITS | Encounter Summary ---
Author Name [facility] [place] Organization [place] Address [address] [place] [address] Care Team Providers Care Foundry Melt Supervisor Name Role Phone ANAY AVALOS Primary [...] PART A Jul 07, 2013 PART A [id number] [phone] ARLETH SANTAMARIA PATIENT MEDICARE (WNR) MEDICARE (M) PART A Jul 07, 2013 PART A [id number] 16A [phone] ARLETH SANTAMARIA PATIENT Selected Encounter This section includes the information on record at [place] for the Encounter. Date/Time Encounter Type Encounter Description Reason Pro vider Source Nov 06, 2023 12:00 PM Outpatient Encounter PRIMARY CARE/MEDICINE IHE Encounter Template Text not used by [place] Plan of Treatment: Future Appointments (+ 6 [...] 20 appointments. The data comes from all [place] treatment facilities. Appointment Date/Time Appointment Type Appointme nt Facility Name Dec 26, 2023 01:00 PM AMBULATORY - MEDICINE [facility] March 05, 2024 09:10 AM AMBULATORY - NONE [facility] Mar 17, 2024 03:40 PM AMBULATORY - NONE [facility] Apr 10, 2024 11:00 AM AMBULATORY - MEDICINE [facility] Apr 13, 2024 09:20 AM AMBULATORY - MEDICINE [facility] Lab Results: +/- 30 days of the encounter This section includes the Chemistry and Hematology Lab Results on record with [place] for the patient. Radiology Reports and Pathology Reports are provided separately, in subsequent sections. Lab Results This section contains the Chemistry/Hematology Results that were resulted 30 days before or 30 daysafter the date of the Encounter. Date/Time Source Result Type Result - Unit Interpretation Reference Range Comment Nov 06, 2023 09:42 AM [facility] CREATININE(INCLUDES EGFR) Specimen Type: PLASMA No comment entered. Ordering Provider: BRISA ARRINGTON Report Released Date/Time: Oct 08, 2023 02:51 PM Reporting Lab: [facility] [id number] Performing Lab: [facility] [address] CREATININE 1.0 mg/dL 0.7-1.2 .CREAT EGFR(CKD-EPI ) 78 >60 Nov 06, 2023 09:42 AM [facility] CBC Specimen Type: BLOOD No comment entered. Ordering Provider: BRISA ARRINGTON Report Released Date/Time: Oct 08, 2023 02:51 PM Reporting Lab: [facility] [address] Performing Lab: [facility] [address] WBC 7.03 10*3/uL 4.0-11.0 RBC 5.27 10*6/uL 4.6-6.2 HGB 16.5 g/dL 13.5-17.9 HCT 49.2 41-54 MCV 93.4 fL 80-100 MCH 31.3 pg 27-33 MCHC 33.5 g/dL 32.0-37.5 PLT 174 10*3/uL 150-400 MPV 11.2 fL H 7.4-10.4 RDW 12.9 11.5-14.5 Nov 06, 2023 09:42 AM [facility] AST/SGOT Specimen Type: PLASMA No comment entered. Ordering Provider: BRISA ARRINGTON Report Released Date/Time: Oct 08, 2023 02:51 PM Reporting Lab: [facility] [phone] Performing Lab: [facility] [address] AST/SGOT 18 U/L <34 Nov 06, 2023 09:42 AM [facility] ALT/SGPT Specimen Type: PLASMA No comment entered. Ordering Provider: BRISA ARRINGTON L Report Released Date/Time: Oct 08, 2023 02:51 PM Reporting Lab: [facility] [address] Performing Lab: [facility] [address] ALT/SGPT 17 U/L <55 Social History: Smoking Status (Most current) and Tobacco Use (All prior to encounter date) This section includes the most current, and the historical, smoking and tobacco- related health factors from the [place] facility where the Encounter took place. Current Smoking Status This section includes the most current smoking, or tobacco-related health factor, from the [facility] where the Encounter took place. Date/Time Current Smoking Status Comment Facil ity Mar 29, 2016 05:20 AM INPT NO TOBACCO USE IN LAST 30 D AYS [facility] Encounter Notes: All associated encounter notes This section contains the clinical notes associated to the Encounter. Date/Time Encounter Note(s) Provider Source Nov 06, 2023 12:00 PM NONVA CONSULT: LOCAL TITLE: COMMUNITY CARE CONSULT RESULT DERMATOLOGY STANDARD TITLE: NONVA CONSULT DATE OF NOTE: NOV 06, 2023@12:00 ENTRY DATE: NOV 22, 2023@18:40:47 AUTHOR: WILLEM STONER EXP COSIGNER: URGENCY: STATUS: COMPLETED VistA Imaging - Scanned Document SCANNED DOCUMENT SIGNATURE NOT REQUIRED Electronically Filed: 11/22/2023 by: WILLEM STONER LPN LICENSED PRACTICAL NURSE WILLEM STONER [facility]
--- OUTSIDE RECORDS SUMMARY | 2024-09-23 07:54 | XMS_ITS | Encounter Summary ---
Author Name [facility] [place] Organization [place] Address [address] [place] [address] Care Team Providers Care Marine Service Operator Name Role Phone ANAY AVALOS Primary Care [...] PART A Jul 07, 2013 PART A [id number] [phone] ARLETH SANTAMARIA PATIENT MEDICARE (WNR) MEDICARE (M) PART A Jul 07, 2013 PART A [id number] 16A ARLETH SANTAMARIA PATIENT Selected Encounter This section includes the information on record at [place] for the Encounter. Date/Time Encounter Type Encounter Description Reason Pro vider Source Dec 11, 2023 03:47 PM Outpatient Encounter COMMUNITY CARE CONSULT IHE [...] 26, 2023 01:00 PM AMBULATORY - MEDICINE [facility] March 05, 2024 09:10 AM AMBULATORY - NONE [facility] Mar 17, 2024 03:40 PM AMBULATORY - NONE [facility] Apr 10, 2024 11:00 AM AMBULATORY - MEDICINE [facility] Apr 13, 2024 09:20 AM AMBULATORY - MEDICINE [facility] May 12, 2024 12:24 PM AMBULATORY - NONE [facility] May 18, 2024 10:45 AM AMBULATORY - MEDICINE [facility] May 18, 2024 11:00 AM AMBULATORY - MEDICINE [facility] Social History: Smoking Status (Most current) and [...] place. Date/Time Current Smoking Status Comment Facil mariey Mar 29, 2016 05:20 AM INPT NO TOBACCO USE IN LAST 30 D [facility] Encounter Notes: All associated encounter notes This section contains the clinical notes associated to the Encounter. Date/Time Encounter Note(s) Provider Source Dec 11, 2023 03:47 PM NONVA NOTE: LOCAL TITLE: COMMUNITY CARE PRE-AUTH LETTER (AUTOPRINT) STANDARD TITLE: NONVA NOTE DATE OF NOTE: DEC 11, 2023@15:47 ENTRY DATE: DEC 11, 2023@15:47:55 AUTHOR: FREDRICK SANZ EXP COSIGNER: URGENCY: STATUS: COMPLETED Dec MILI SANTAMARIA [address] [place] [id number] Dear MILI SANTAMARIA, Your VA provider has referred you to a provider within the community for care. Your medical care for OPTOMETRY has been authorized with the community care provider listed below. DO NOT REPORT TO THE [place] [facility] Provider info: Care has been approved for the following vendor: Office name, address, and phone number: [facility] [address] [place] [address] Please contact the identified provider to schedule your community appointment. If you need assistance with this appointment, please call your facility community care office [facility] Office of Community Care at [phone] during the hours of 8:30AM - 3:00PM. Please follow up with your local [facility] community care office once this is scheduled. This step is needed to ensure your referral duration is maximized and the VA has accurate referral information for billing purposes. Authorization Number: [id number] Referral Issue Date: Dec Expiration Date: Mar (subject to change based on first appointment) If you are unable to schedule this appointment or the appointment is no longer needed, please contact the community provider above for notification/rescheduling and then call the [facility] Office of Community Care at [phone] during the hours of 8:30AM - 3:00PM. If you need additional care/services not mentioned above or your authorization has and additional care is needed, please contact your primary care provider for a new referral. To review all care/service(s) approved under your referral, please go to the following link: [employer] [place] Portal([employer]) Co-Payments: If you are required to pay a VA co-payment, you will be billed by the VA for each authorized visit that you attend. However, you are NOT REQUIRED to make co-payments to a community provider. Thank you for the opportunity to serve you. Sincerely, [place] Community [facility] (VACC) /zach/ FREDRICK NAYAK Signed: 12/11/2023 15:55 FREDRICK SANZ [facility]
--- OUTSIDE RECORDS SUMMARY | 2024-09-23 07:54 | XMS_ITS | Encounter Summary ---
Author Name [place] Address [address] [place] [address] Care Team Providers Care Cadd Manager Name Role Phone ANAY AVALOS Primary [...] PART A Jul 07, 2013 PART A [id number] [phone] ARLETH SANTAMARIA PATIENT MEDICARE (WNR) MEDICARE (M) PART A Jul 07, 2013 PART A [id number] 16A ARLETH SANTAMARIA PATIENT Selected Encounter This section includes the information on record at [place] for the Encounter. Date/Time Encounter Type Encounter Description Reason Pro vider Source February 10, 2024 09:16 AM Outpatient Encounter COMMUNITY CARE CONSULT IHE Encounter Template Text not used by [place] Plan of Treatment: Future Appointments (+ 6 [...] 20 appointments. The data comes from all [place] treatment facilities. Appointment Date/Time Appointment Type Appointme nt Facility Name March 05, 2024 09:10 AM AMBULATORY - NONE [facility] Mar 17, 2024 03:40 PM AMBULATORY - NONE [facility] Apr 10, 2024 11:00 AM AMBULATORY - MEDICINE [facility] Apr 13, 2024 09:20 AM AMBULATORY - MEDICINE [facility] May 12, 2024 12:24 PM AMBULATORY - NONE [facility] May 18, 2024 10:45 AM AMBULATORY - MEDICINE [facility] May 18, 2024 11:00 AM AMBULATORY - MEDICINE [facility] Jul 03, 2024 10:45 AM AMBULATORY - MEDICINE [facility] Jul 08, 2024 11:30 AM AMBULATORY - NONE [facility] Jul 10, 2024 11:30 AM AMBULATORY - NONE [facility] Social History: Smoking Status (Most current) and Tobacco Use (All prior to encounter date) This section includes the most current, and the historical, smoking and tobacco- related health factors from the [place] facility where the Encounter took place. Current Smoking Status This section includes the most current smoking, or tobacco-related health factor, from the [place] facility where the Encounter took place. Date/Time Current Smoking Status Comment Facil ity Mar 29, 2016 05:20 AM INPT NO TOBACCO USE IN LAST 30 D [facility] Encounter Notes: All associated encounter notes This section contains the clinical notes associated to the Encounter. Date/Time Encounter Note(s) Provider Source February 10, 2024 09:16 AM NONVA NOTE: LOCAL TITLE: COMMUNITY CARE PRE-AUTH LETTER (AUTOPRINT) STANDARD TITLE: NONVA NOTE DATE OF NOTE: FEBRUARY 10, 2024@09:16 ENTRY DATE: FEBRUARY 10, 2024@09:16:18 AUTHOR: LESLIE ROBERTS COSIGNER: URGENCY: STATUS: COMPLETED February MILI SANTAMARIA [id number] [place] [id number] Dear MILI SANTAMARIA, Your VA provider has referred you to a provider within the community for care. Your medical care for COMMUNITY CARE-DERMATOLOGY has been authorized with the community care provider listed below. DO NOT REPORT TO THE [facility] Provider info: Care has been approved for the following vendor: Office name, address, and phone number: [facility] [address] [facility] [address] Please contact the identified provider to schedule your community appointment. If you need assistance with this appointment, please call your facility community care office [facility] Office of Community Care at [phone] during the hours of 8:30AM - 3:00PM. Please follow up with your local [facility] community care office once this is scheduled. This step is needed to ensure your referral duration is maximized and the [place] has accurate referral information for billing purposes. Authorization Number: [id number] Referral Issue Date: February Expiration Date: Jul (subject to change based on first appointment) If you are unable to schedule this appointment or the appointment is no longer needed, please contact the community provider above for notification/rescheduling and then call the [facility] Office of Community Care at [phone] during the hours of 8:30AM - 3:00PM. If you need additional care/services not mentioned above or your authorization has and additional care is needed, please contact your primary care provider for a new referral. To review all care/service(s) approved under your referral, please go to the following link: [place] Portal([employer]) Co-Payments: If you are required to pay a VA co-payment, you will be billed by the VA for each authorized visit that you attend. However, you are NOT REQUIRED to make co-payments to a community provider. Thank you for the opportunity to serve you. Sincerely, [place] Community Care (VACC) /zach/ LESLIE ROBERTS [employer]RO[employer] CAR CLEANING SUPERVISOR Signed: 02/10/2024 09:16 LESLIE ROBERTS [facility]
--- OUTSIDE RECORDS SUMMARY | 2024-09-23 07:54 | XMS_ITS | Encounter Summary ---
Author Name [facility] [place] Organization [place] Address [address] [place] [id number] Care Team Providers Care Completions Engineer Name Role Phone ANAY AVALOS Primary [...] PART A Jul 07, 2013 PART A [id number] [phone] ARLETH SANTAMARIA PATIENT MEDICARE (WNR) MEDICARE (M) PART A Jul 07, 2013 PART A [id number] 16A [phone] ARLETH SANTAMARIA PATIENT Selected Encounter This section includes the information on record at [place] for the Encounter. Date/Time Encounter Type Encounter Description Reason Provider Source May 13, 2024 10:48 AM Outpatient Encounter TELEPHONE TRIAGE WILLEM BROWN Encounter Template Text not used by [place] Plan of Treatment: Future Appointments (+ 6 [...] 20 appointments. The data comes from all [place] treatment facilities. Appointment Date/Time Appointment Type Appointme nt Facility Name May 18, 2024 10:45 AM AMBULATORY - MEDICINE [facility] May 18, 2024 11:00 AM AMBULATORY - MEDICINE [facility] Jul 03, 2024 10:45 AM AMBULATORY - MEDICINE [facility] Jul 08, 2024 11:30 AM AM[facility]ULATORY - NONE [facility] Jul 10, 2024 11:30 AM AMBULATORY - NONE [facility] Oct 12, 2024 08:00 AM AMBULATORY - MEDICINE [facility] Oct 12, 2024 08:40 AM AMBULATORY - MEDICINE [facility] Social History: Smoking Status (Most current) and Tobacco Use (All prior to encounter date) This section includes the most current, and the historical, smoking and tobacco- related health factors from the [place] facility where the Encounter took place. Current Smoking Status This section includes the most current smoking, or tobacco-related health factor, from the [place] facility where the Encounter took place. Date/Time Current Smoking Status Comment Facil ity Mar 29, 2016 05:20 AM INPT NO TOBACCO USE IN LAST 30 D [facility] Encounter Notes: All associated encounter notes This section contains the clinical notes associated to the Encounter. Date/Time Encounter Note(s) Provider Source May 13, 2024 10:48 AM RN PROGRESS NOTE: LOCAL TITLE: CCC: CLINICAL TRIAGE STANDARD TITLE: RN PROGRESS NOTE DATE OF NOTE: MAY 13, 2024@10:48:49 ENTRY DATE: MAY 13, 2024@10:48:49 AUTHOR: WILLEM BROWN COSIGNER: URGENCY: STATUS: COMPLETED Patient Demographics Patient Name: MILI SANTAMARIA Patient Primary [address]: [address] [place] [address] Patient Primary Phone: [phone] Patient : 1950 Patient Age: 73 Caller/Recipient Relation to Patient: Self Emergency Contact: GRICEL SANTAMARIA Triage Summary Conducted triage/discussed symptoms Pain Score: 0 (No Pain) Utilized the Triage Tool: Yes Chief Complaint: Low Blood Pressure System WHEN: Within 3 Days Nurse's Recommendation / WHEN: Within 3 Days System WHERE: Clinic Nurse's Recommendation / WHERE: Clinic/[facility] Patient Disposition Patient/Caregiver agrees to plan of care: Yes Nursing Plan and Disposition Other course(s) of action Generated msg to PACT/Provider Nurse Summary Nurse Summary: PATIENT CONCERN/DURATION/ONSET: [place] c/o of low b/p x 4 days. He reports that he called triage on Saturday and they sent him in to the local ER to be evaluated. He says that they thought he was on too much Metoprolol so they cut his dosage in half and told him he needed to f/u with his PCP. He took the reduced dosage yesterday and today. He is calling today requesting to schedule an appt with his PCP to f/u after the ER visit. He denies having any symptoms today. The only symptom he says he had when his b/p was low was that he felt really fatigued. B/p readings he provided to me today were: Saturday 100/66 P-62 Saturday 110/70 P-59 Saturday 100/61 P-54 left arm and 97/61 P-55 right arm Saturday 120/72 left arm and 117/71 P-72 right arm Sat 115/68 P-53 left arm and 101/69 P-52 right arm Denies: chest pain, heart palpitations, dizziness, fatigue Pain: 0/10 WHAT HAS PATIENT TRIED TO TREAT THE SYMPTOMS: taking meds as ordered and reduced Metoprolol as recommended by ER provider with some improvement in b/p so far HISTORY/PREVIOUS TREATMENT: afib, aortic valve replacement, DM WHAT IS PATIENT GOAL FOR THE CALL: appt with PCP to follow up on low b/p and ER visit Was Virtual Care visit considered (TELE or VVC)? no, Nurse feels that symptom is not appropriate for virtual care and needs PACT interaction due to symptom and history SECOND HAND DISPOSITION: Recommended triage is > 24 hours secondary to low b/p x 4 days as documented above. Unable to schedule appt for [facility] clinic. Will forward to PACT for further management of veterans concerns. MM sent. [place] agrees with plan of care and verbalizes understanding of instructions provided. Advised to seek ED evaluation if new or worsening symptoms develop. Home care advice and warning signs provided as outlined in education section below. This note was created by a [facility] [facility] mink slicer. Please do not alert this nurse by adding as a signer for future communications. Alerts are not monitored by this user, please reach out to [facility] instead if indicated. Clinical Contact Center Codes Clinic/Location: [facility] PHONE CCC RN Decision Support System Output: Triage Complete Triage Date: 05/13/2024, 10:36 AM Triage Note: Decision Support Tool Used: [facility] Phone Triage 13 May 2024 15:17:38 +0000 [facility] Demographics 73 y/o Male Results CC: Low Blood Pressure Software suggested: Within 3 Days Software suggested follow-up location: Clinic, consider [facility] care Values and Measures SBP: 115 mmHg Duration of CC: 4 Days Positive Responses PMH: arrhythmia in the past PMH: heart disease PMH: hypertension Negative Responses Denies: HPI: abdominal pain Denies: HPI: chest pain Denies: HPI: lightheadedness, worsening, interferes with daily activities Denies: HPI: syncope Denies: HPI: weakness or fatigue, severe Denies: PMH: abdominal aortic aneurysm Denies: PMH: CHF Denies: PMH: heart attack Education Log Home Care: Stay out of the heat if possible If working out in the heat take breaks Stay hydrated with water Avoid caffeine take meds as ordered Warning signs: Chest pain heart palpitations SOB Lightheaded/dizzy low b/p /es/ WILLEM 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
--- OUTSIDE RECORDS SUMMARY | 2024-09-23 07:54 | XMS_ITS | Encounter Summary ---
Author Name [facility] [place] Organization [place] Address [address] [place] [address] Care Team Providers Care Allergist/Immunologist Physician Name Role Phone ANAY AVALOS Primary Care [...] PART A Jul 07, 2013 PART A [id number] [phone] ARLETH SANTAMARIA PATIENT MEDICARE (WNR) MEDICARE (M) PART A Jul 07, 2013 PART A [id number] 16A ARLETH SANTAMARIA PATIENT Selected Encounter This section includes the information on record at [place] for the Encounter. Date/Time Encounter Type Encounter Description Reason Pro vider Source Apr 10, 2024 11:00 AM Outpatient Encounter PRIMARY CARE/MEDICINE [facility] Encounter Template [...] 12:24 PM AMBULATORY - NONE [facility] May 18, 2024 10:45 AM AMBULATORY [...] and Hematology Lab Results on record with [place] for the patient. Radiology Reports and Pathology [...] Apr 10, 2024 11:32 AM Reporting Lab: [facility] [id number] Performing Lab: [facility] [phone] CREATININE,UR RANDOM 37.9 mg/dL L 58.0-161.0 ALB/CREAT [...] Apr 10, 2024 11:32 AM Reporting Lab: [facility] [id number] Performing Lab: [facility] [phone] HEMOGLOBIN A1C 8.3 H 4.0-6.0 Apr 13, 2024 09:12 AM [facility] LIPID PANEL,NON-FASTING Specimen Type: PLASMA No comment entered. Ordering Provider: ANAY AVALOS Report Released Date/Time: Apr 10, 2024 11:32 AM Reporting Lab: [facility] [id number] Performing Lab: [facility] [phone] CHOLESTEROL 130 mg/dL <199 .HDL 43 mg/dL >40 LDL CALCULATION 72 mg/dL <99 VLDL CALCULATION 15 mg/dL <29 NON HDL CHOLESTEROL 87 mg/dL <129 TRIG(NON FASTING) 73 mg/dL <149 Apr 13, 2024 09:12 AM [facility] CBC Specimen Type: BLOOD No comment entered. Ordering Provider: ANAY AVALOS Report Released Date/Time: Apr 10, 2024 11:32 AM Reporting Lab: [facility] [address] Performing Lab: [facility] [id number] WBC 5.70 10*3/uL 4.0-11.0 RBC 4.78 10*6/uL [...] Apr 10, 2024 11:32 AM Reporting Lab: [facility] [phone] Performing Lab: [facility] [phone] CREATININE 0.8 mg/dL 0.7-1.2 UREA NITROGEN 23 [...] NO TOBACCO USE IN LAST 30 D [facility] Encounter Notes: All associated encounter notes This section contains the clinical notes associated to the Encounter. Date/Time Encounter Note(s) Provider Source Apr 03, 2024 01:40 PM ADMINISTRATIVE NOT E: LOCAL TITLE: PRE VISIT SUMMARY NOTE STANDARD TITLE: ADMINISTRATIVE NOTE DICT DATE: APR 03, 2024@13:40:49 ENTRY DATE: APR 03, 2024@13:40:49 DICTATED BY: KALEIGH SUMMERS EXP COSIGNER: URGENCY: STATUS: COMPLETED INCLUDED IN THIS LIST: Alphabetical list of active outpatient prescriptions dispensed from this [place] (local) and dispensed from another [place] or [facility] facility (remote) as well as inpatient orders (local pending and active), local clinic medications, locally documented non-VA medications, and local prescriptions that have or been discontinued in the past 90 days. NOTE The display of VA prescriptions dispensed from another [place] or [facility] facility (remote) is limited to active outpatient prescription entries matched to National Drug File at the originating site and may not include some items such as investigational drugs, compounds, etc. MEDICATIONS Amlodipine Besylate 10mg Tab TAKE ONE TABLET BY MOUTH EVERY DAY Rx #: [id number] Pharmacy: [facility] Ordering Provider: ANAY AVALOS Status: ACTIVE Quantity: 90 for 90 days Refills Remainin Expires: February 24, 2025 Last Filled: February 24, 2024 Amlodipine Besylate 10mg Tab TAKE ONE TABLET BY MOUTH EVERY DAY Rx #: [id number] Pharmacy: [facility] Ordering Provider: MOIRA PIÑA Status: DISCONTINUED Quantity: 90 for 90 days Refills Remainin Expires: Mar 07, 2024 Discontinued: February 24, 2024 Last Filled: Nov 25, 2023 Amoxicillin 500mg Cap TAKE FOUR CAPSULES BY MOUTH ONCE 60 MINUTES PRIOR TO DENTAL PROCEDURE. Indication: DENTAL PROPHYLAXIS Rx #: [id number] Pharmacy: [facility] Ordering Provider: CALIN RAMIREZ Status: ACTIVE Quantity: 12 for 90 days Refills Remainin Expires: Nov 15, 2024 Last Filled: Nov 15, 2023 Apixaban 5mg Tab TAKE ONE TABLET BY MOUTH TWICE A DAY TO TREAT AND/OR PREVENT BLOOD CLOTS Rx #: [id number] Pharmacy: [facility] Ordering Provider: ALMA MANTILLA Status: ACTIVE Quantity: 180 for 90 days Refills Remainin Expires: Jun 04, 2024 Last Filled: February 21, 2024 Atorvastatin Calcium 20mg Tab TAKE ONE TABLET BY MOUTH EVERY DAY FOR CHOLESTEROL Indication: FOR CHOLESTEROL Rx #: [id number] Pharmacy: [facility] Ordering Provider: MOIRA PIÑA Status: Quantity: 90 for 90 days Refills Remainin Expires: Mar 07, 2024 Last Filled: February 21, 2024 Cetirizine Hcl 10mg Tab TAKE ONE TABLET BY MOUTH EVERY DAY FOR ALLERGIES Indication: FOR ALLERGIES Rx #: [id number] Pharmacy: [facility] Ordering Provider: ANAY AVALOS Status: ACTIVE Quantity: 90 for 90 days Refills Remainin Expires: February 24, 2025 Last Filled: February 24, 2024 Cetirizine Hcl 10mg Tab TAKE ONE TABLET BY MOUTH EVERY DAY FOR ALLERGIES Indication: FOR ALLERGIES Rx #: [id number] Pharmacy: [facility] Ordering Provider: MOIRA PIÑA Status: DISCONTINUED Quantity: 90 for 90 days Refills Remainin Expires: Mar 07, 2024 Discontinued: February 24, 2024 Last Filled: Nov 25, 2023 Empagliflozin 25mg Tab TAKE ONE-HALF TABLET BY MOUTH EVERY MORNING FOR DIABETES Indication: FOR DIABETES Rx #: [id number] Pharmacy: [facility] Ordering Provider: ANAY AVALOS Status: ACTIVE Quantity: 45 for 90 days Refills Remainin Expires: February 24, 2025 Last Filled: Mar 12, 2024 Empagliflozin 25mg Tab TAKE ONE-HALF TABLET BY MOUTH EVERY MORNING FOR DIABETES Indication: FOR DIABETES Rx #: [id number] Pharmacy: [facility] Ordering Provider: MOIRA PIÑA Status: DISCONTINUED Quantity: 45 for 90 days Refills Remainin Expires: Mar 10, 2024 Discontinued: February 24, 2024 Last Filled: Nov 27, 2023 Empagliflozin 25mg Tab TAKE ONE-HALF TABLET BY MOUTH EVERY MORNING FOR DIABETES Indication: FOR DIABETES Rx #: [id number] Pharmacy: [facility] Ordering Provider: ANAY AVALOS Status: DISCONTINUED Quantity: 45 for 90 days Refills Remainin Expires: February 24, 2025 Discontinued: Mar 12, 2024 Last Filled: February 25, 2024 Folic Acid 1mg Tab TAKE ONE TABLET BY MOUTH DAILY Rx #: [id number] Pharmacy: [facility] Ordering Provider: ANAY AVALOS Status: ACTIVE Quantity: 90 for 90 days Refills Remainin Expires: February 24, 2025 Last Filled: February 26, 2024 Folic Acid 1mg Tab TAKE ONE TABLET BY MOUTH DAILY Rx #: [id number] Pharmacy: [facility] Ordering Provider: JUMANA VINES Status: DISCONTINUED Quantity: 90 for 90 days Refills Remainin Expires: February 27, 2024 Discontinued: February 24, 2024 Last Filled: Nov 28, 2023 Gabapentin 300mg Cap TAKE ONE CAPSULE BY MOUTH AT BEDTIME FOR SLEEP, FOR NEUROPATHY Rx #: [id number] Pharmacy: [facility] Ordering Provider: MOIRA PIÑA Status: Quantity: 90 for 90 days Refills Remainin Expires: Mar 07, 2024 Last Filled: Jan 30, 2024 Lidocaine 5% Oint APPLY MODERATE AMOUNT TOPICALLY TWICE A DAY NEEDED FOR INCISIONAL AREA PAIN Indication: FOR INCISIONAL AREA PAIN Rx #: [id number] Pharmacy: [facility] Ordering Provider: CALIN RAMIREZ Status: ACTIVE Quantity: 210 for 90 days Refills Remainin Expires: Aug 20, 2024 Last Filled: Aug 21, 2023 Metformin Hcl 1000mg Tab TAKE ONE TABLET BY MOUTH TWICE A DAY FOR DIABETES - TAKE WITH FOOD Rx #: [id number] Pharmacy: [facility] Ordering Provider: MOIRA PIÑA Status: Quantity: 180 for 90 days Refills Remainin Expires: Mar 07, 2024 Last Filled: Mar 17, 2023 Metoprolol Tartrate 100mg Tab TAKE ONE TABLET BY MOUTH EVERY 12 HOURS Rx #: [id number] Pharmacy: [facility] Ordering Provider: MOIRA PIÑA Status: Quantity: 180 for 90 days Refills Remainin Expires: Mar 07, 2024 Last Filled: February 21, 2024 Tamsulosin Hcl 0.4mg Cap TAKE ONE CAPSULE BY MOUTH DAILY Rx #: [id number] Pharmacy: [facility] Ordering Provider: MOIRA PIÑA Status: ACTIVE Quantity: 30 for 30 days Refills Remainin Expires: Jun 17, 2024 Last Filled: Apr 02, 2024 Aspirin 81mg Ec Tab Sig: TAKE 81MG BY MOUTH EVERY DAY Documenting Facility: [facility] Non-VA Meds Last Documented On: FOR NURSING USE ONLY: [] CALLISTHENICS INSTRUCTOR review of medications completed completed: printed list is correct: PUT THIS SHEET IN RED DOG. [] CALLISTHENICS INSTRUCTOR review of medications completed: corrections made below: PUT THIS SHEET IN RED DOG [] CALLISTHENICS INSTRUCTOR review of medications not completed: GIVE THIS SHEET TO PATIENT TO REVIEW END OF NURSING USE SECTION SCANNED DOCUMENT SIGNATURE NOT REQUIRED Electronically Filed: 04/03/2024 by: MARKUS SUMMERS [facility] MELINA,MARKUS Aguilar [facility]
--- OUTSIDE RECORDS SUMMARY | 2024-09-23 07:54 | XMS_ITS | Encounter Summary ---
Author Name [facility] [place] Address [address] [place] [address] Care Team Providers Care Varnishing Machine Operator Name Role Phone ANAY AVALOS Primary [...] PART A Jul 07, 2013 PART A [id number] [phone] ARLETH SANTAMARIA PATIENT MEDICARE (WNR) MEDICARE (M) PART A Jul 07, 2013 PART A [id number] ARLETH SANTAMARIA PATIENT Selected Encounter This section includes the information on record at [place] for the Encounter. Date/Time Encounter Type Encounter Description Reason Provider Source Nov 06, 2023 10:15 AM IMMUNIZATION ADMIN PRIMARY CARE/MEDICINE ICD-10-CM Z23 Encounter for immunization FIORELLA LOPEZ Jaclyn Encounter Template Text not used by VA Assessments - Encounter Diagnoses This section includes the primary and secondary diagnoses documented for the Encounter. Date/Time Primary/Secondary Diagnosis Diagnosis Name Provider Source Nov 06, 2023 10:14 AM PRIMARY Encounter for immunization [facility] Plan of Treatment: Future Appointments (+ 6 months) and Future Tests (+/- 45 days) The Plan of Treatment section includes future care activities for the patient [facility] [place] [facility] This section includes future appointments and future orders which are active, pending or scheduled. Future Appointments This section includes appointments that were scheduled to occur 6 months from the date of the Encounter, up to a maximum of 20 appointments. The data comes from all [facility] facilities. Appointment Date/Time Appointment Type Appointme nt Facility Name Dec 26, 2023 01:00 PM AMBULATORY - MEDICINE [facility] March 05, 2024 09:10 AM AMBULATORY - NONE [facility] Mar 17, 2024 03:40 PM AMBULATORY - NONE [facility] Apr 10, 2024 11:00 AM AMBULATORY - MEDICINE [facility] Apr 13, 2024 09:20 AM AMBULATORY - MEDICINE [facility] Lab Results: +/- 30 days of [...] Range Comment Nov 06, 2023 09:42 AM [facility] CREATININE(INCLUDES EGFR) Specimen Type: PLASMA No comment entered. Ordering Provider: BRISA ARRINGTON Report Released Date/Time: Oct 08, 2023 02:51 PM Reporting Lab: [facility] [id number] Performing Lab: [facility] [id number] CREATININE 1.0 mg/dL 0.7-1.2 .CREAT EGFR(CKD-EPI ) 78 >60 Nov 06, 2023 09:42 AM [facility] CBC Specimen Type: BLOOD No comment entered. Ordering Provider: BRISA ARRINGTON Report Released Date/Time: Oct 08, 2023 02:51 PM Reporting Lab: [facility] [address] Performing Lab: [facility] [address] WBC 7.03 10*3/uL 4.0-11.0 RBC 5.27 10*6/uL 4.6-6.2 HGB 16.5 g/dL 13.5-17.9 HCT 49.2 41-54 MCV 93.4 fL 80-100 MCH 31.3 pg 27-33 MCHC 33.5 g/dL 32.0-37.5 PLT 174 10*3/uL 150-400 MPV 11.2 fL H 7.4-10.4 RDW 12.9 11.5-14.5 Nov 06, 2023 09:42 AM [facility] AST/SGOT Specimen Type: PLASMA No comment entered. Ordering Provider: BRISA ARRINGTON Report Released Date/Time: Oct 08, 2023 02:51 PM Reporting Lab: [facility] [id number] Performing Lab: [facility] [address] AST/SGOT 18 U/L <34 Nov 06, 2023 09:42 AM [facility] ALT/SGPT Specimen Type: PLASMA No comment entered. Ordering Provider: BRISA ARRINGTON Report Released Date/Time: Oct 08, 2023 02:51 PM Reporting Lab: [facility] [id number] Performing Lab: [facility] [id number] ALT/SGPT 17 U/L <55 Immunizations: All administered on the encounter date This section contains immunizations associated to the Encounter. Immunization Series Date Issued Reaction Comments INFLUENZA, HIGH-DOSE, QUADRIVALENT Nov 06, 2023 Encounter Notes: All associated encounter notes This section contains the clinical notes associated to the Encounter. Date/Time Encounter Note(s) Provider Source Nov 06, 2023 10:05 AM PRIMARY CARE [facility] NOTE: LOCAL TITLE: [facility] NURSING PROGRESS NOTE STANDARD TITLE: PRIMARY CARE NURSING NOTE DATE OF NOTE: NOV 06, 2023@10:05 ENTRY DATE: NOV 06, 2023@10:06 AUTHOR: FIORELLA LOPEZ EXP COSIGNER: URGENCY: STATUS: COMPLETED Influenza Immunization: The patient was given the influenza VIS which lists the benefits and side effects of the vaccine and which reviews the risks of not receiving the flu vaccine. The VIS was reviewed with the patient and they were given an opportunity to ask questions. The patient was provided education on how to decrease the risk of influenza infection including social distancing and use of good hand hygiene. The patient denied any prior severe reaction to the flu vaccine or its components. The patient gave verbal consent to receive the vaccine. Influenza, High Dose, Quadrivalent (Fluzone - syringe) Administered: INFLUENZA, HIGH-DOSE, QUADRIVALENT Date Administered: Nov 06, 2023 10:06 Packaging Sales Consultant: [employer] PASTEUR Lot: [id number] Exp Date: Apr 05, 2024 [facility] [place]: [phone] Admin Route/Site: INTRAMUSCULAR/RIGHT DELTOID Dosage: 0.7mL Vaccine Information Statement(s): INFLUENZA(FLU) VACC(INACTIVATED OR RECOMBINANT)VIS May 12, 2021 ([facility]ISS) Order By: Policy Administered By: Fiorella Lopez Entry of Outside Tests/Reports: Other prior vaccination(s) Documented: COVID-19 (MODERNA), MRNA, LNP-S, BIVALENT, PF, 50 MCG/0.5 ML OR 25MCG/0.25 ML DOSE Historical Date Administered: Aug 03, 2022 Information Source: FROM [facility] Comment: was moderna not pfizer, at [facility] /zach/ FIORELLA LOPEZ LPN LICENSED PRACTICAL NURSE Signed: 11/06/2023 10:14 FI[facility]LLA LOPEZ [facility]
--- OUTSIDE RECORDS SUMMARY | 2024-09-23 07:54 | XMS_ITS | Encounter Summary ---
Author Name [facility] [place] [facility] [place] Address [address] [place] [id number] Care Team Providers Care Applications Development Consultant Name Role Phone EMILI FISHER Primary Care Provider Unavailabl e Insurance [...] PART A Jul 07, 2013 PART A [id number] [phone] ARLETH SANTAMARIA PATIENT MEDICARE (WNR) MEDICARE (M) PART A Jul 07, 2013 PART A [id number] ARLETH SANTAMARIA PATIENT Selected Encounter This section includes the information on record at [place] for the Encounter. Date/Time Encounter Type Encounter Description Reason Pro vider Source Dec 06, 2023 11:24 AM Outpatient Encounter COMMUNITY CARE CONSULT IHE Encounter Template Text not used by [place] Plan of Treatment: Future Appointments (+ 6 [...] 20 appointments. The data comes from all [place] treatment facilities. Appointment Date/Time Appointment Type Appointme nt Facility Name Dec 26, 2023 01:00 PM AMBULATORY - MEDICINE [facility] March 05, 2024 09:10 AM AMBULATORY - NONE [facility] Mar 17, 2024 03:40 PM AMBULATORY - NONE [facility] Apr 10, 2024 11:00 AM AMBULATORY - MEDICINE [facility] Apr 13, 2024 09:20 AM AMBULATORY - MEDICINE [facility] May 12, 2024 12:24 PM AMBULATORY - NONE [facility] May 18, 2024 10:45 AM AMBULATORY - MEDICINE [facility] May 18, 2024 11:00 AM AMBULATORY - MEDICINE [facility] Social History: Smoking Status (Most current) and Tobacco Use (All prior to encounter date) This section includes the most current, and the historical, smoking and tobacco- related health factors from the [place] facility where the Encounter took place. Current Smoking Status This section includes the most current smoking, or tobacco-related health factor, from the [place] facility where the Encounter took place. Date/Time Current Smoking Status Comment Facil pepe Mar 29, 2016 05:20 AM INPT NO TOBACCO USE IN LAST 30 D [facility] Encounter Notes: All associated encounter notes This section contains the clinical notes associated to the Encounter. Date/Time Encounter Note(s) Provider Source Dec 06, 2023 11:24 AM NONVA NOTE: LOCAL TITLE: COMMUNITY CARE-CARE COORDINATION PLAN NOTE STANDARD TITLE: NONVA NOTE DATE OF NOTE: DEC 06, 2023@11:24 ENTRY DATE: DEC 06, 2023@11:24:39 AUTHOR: MARY ELLEN VELAZQUEZ EXP COSIGNER: URGENCY: STATUS: COMPLETED COMMUNITY CARE-CARE COORDINATION PLAN NOTE Has ADDENDA [place] called the Community Care Call Line requesting a Community Care consult for Optometry for routine eye exam. was informed that there is no existing authorization in place for this care. Respectfully alerting the 's PACT for review of this request and eligibility determination. He made appt out in community for December. /zach/ MARY ELLEN VELAZQUEZ ADVANCED MSA Signed: 12/06/2023 11:25 Receipt Acknowledged By: 12/06/2023 13:03 /zach/ MAC RAMIREZ REGISTERED NURSE 12/06/2023 15:07 /zach/ EMILI FISHER SENIOR GRAPHIC DESIGNER,DNP,SCRUM PRODUCT OWNER-C 12/06/2023 ADDENDUM STATUS: COMPLETED Will await consult from PCP Emili Fisher, if appropriate. /zach/ MAC RAMIREZ REGISTERED NURSE Signed: 12/06/2023 13:03 MARY ELLEN VELAZQUEZ [facility]
--- OUTSIDE RECORDS SUMMARY | 2024-09-23 07:54 | XMS_ITS | Encounter Summary ---
Author Name [facility] [place] [facility] [place] Address [address] [place] [id number] Care Team Providers Care Hogshead Wrecker Name Role Phone ANAY AVALOS Primary Care [...] PART A Jul 07, 2013 PART A [id number] [phone] ARLETH SANTAMARIA PATIENT MEDICARE (WNR) MEDICARE (M) PART A Jul 07, 2013 PART A [id number] 16A ARLETH SANTAMARIA PATIENT Selected Encounter This section includes the information on record at [place] for the Encounter. Date/Time Encounter Type Encounter Description Reason Pro vider Source February 28, 2024 09:46 AM Outpatient Encounter PRIMARY CARE/MEDICINE IHE Encounter Template Text not used by [place] Plan of Treatment: Future Appointments (+ 6 [...] 20 appointments. The data comes from all [place] treatment facilities. Appointment Date/Time Appointment Type Appointme nt Facility Name March 05, 2024 09:10 AM AMBULATORY - NONE [facility] Mar 17, 2024 03:40 PM AMBULATORY - NONE [facility] Apr 10, 2024 11:00 AM AMBULATORY - MEDICINE [facility] Apr 13, 2024 09:20 AM AMBULATORY - MEDICINE [facility] May 12, 2024 12:24 PM AMBULATORY - NONE [facility] May 18, 2024 10:45 AM AMBULATORY - MEDICINE [facility] May 18, 2024 11:00 AM AMBULATORY - MEDICINE [facility] Jul 03, 2024 10:45 AM AMBULATORY - MEDICINE [facility] Jul 08, 2024 11:30 AM AMBULATORY - NONE [facility] Jul 10, 2024 11:30 AM AMBULATORY - NONE [facility] Social History: Smoking Status (Most current) and Tobacco Use (All prior to encounter date) This section includes the most current, and the historical, smoking and tobacco- related health factors from the [place] facility where the Encounter took place. Current Smoking Status This section includes the most current smoking, or tobacco-related health factor, from the [place] facility where the Encounter took place. Date/Time Current Smoking Status Comment Facil ity Mar 29, 2016 05:20 AM INPT NO TOBACCO USE IN LAST 30 D [facility] Encounter Notes: All associated encounter notes This section contains the clinical notes associated to the Encounter. Date/Time Encounter Note(s) Provider Source February 28, 2024 09:47 AM REPORT OF CONTACT: LOCAL TITLE: PATIENT CONTACT NOTE STANDARD TITLE: REPORT OF CONTACT DATE OF NOTE: FEBRUARY 28, 2024@09:47 ENTRY DATE: FEBRUARY 28, 2024@09:47:06 AUTHOR: MARK PEREYRA EXP COSIGNER: URGENCY: STATUS: COMPLETED PATIENT CONTACT NOTE Has ADDENDA Patient contact Name of : MILI SANTAMARIA Date & Time of Contact: February@09:47 Type of Contact: Telephone Reason for Contact: [place] requesting new shoe inserts and also Xlarge Sensifoot Stockings. Nurse alerted. /zach/ MARK PEREYRA TCT Signed: 02/28/2024 09:48 Receipt Acknowledged By: 02/28/2024 14:07 /zach/ MAC RAMIREZ REGISTERED NURSE for CAMILLE MOJICA 02/28/2024 ADDENDUM STATUS: COMPLETED Invoice Control Clerk placed requested consults for [place]. /zach/ MAC RAMIREZ REGISTERED NURSE Signed: 02/28/2024 14:08 MARK PEREYRA [facility]
--- OUTSIDE RECORDS SUMMARY | 2024-09-23 07:54 | XMS_ITS | Encounter Summary ---
Author Name [facility] [place] Address [address] [place] [address] Care Team Providers Care Surveillance Analyst Name Role Phone ROBBIEEMILI ISABEL Primary Care Provider Riccardo rainey Insurance [...] PART A Jul 07, 2013 PART A [id number] [phone] ARLETH SANTAMARIA PATIENT MEDICARE (WNR) MEDICARE (M) PART A Jul 07, 2013 PART A [id number] 16A ARLETH SANTAMARIA PATIENT Selected Encounter This section includes the information on record at [place] for the Encounter. Date/Time Encounter Type Encounter Description Reason Provider Source May 18, 2024 04:55 PM HC PRO PHONE CALL 5-10 MIN TELEPHONE PRIMARY CARE ICD-10-CM I95.9 Hypotension, unspecified MARYLIN RAMIREZ IHE Encounter Template Text not used by [place] Assessments - Encounter Diagnoses This section includes the primary and secondary diagnoses documented for the Encounter. Date/Time Primary/Secondary Diagnosis Diagnosis Name Provider Source May 18, 2024 04:55 PM PRIMARY Hypotension, unspecified MAC RAMIREZ [facility] Plan of Treatment: Future Appointments (+ 6 months) and Future Tests (+/- 45 days) The Plan of Treatment section includes future care activities for the patient [facility] [place] [facility] This section includes future appointments and future orders which are active, pending or scheduled. Future Appointments This section includes appointments that were scheduled to occur 6 months from the date of the Encounter, up to a maximum of 20 appointments. The data comes from all [facility]. Appointment Date/Time Appointment Type Appointme nt Facility Name Jul 03, 2024 10:45 AM AMBULATORY - MEDICINE [facility] Jul 08, 2024 11:30 AM AMBULATORY - NONE [facility] Jul 10, 2024 11:30 AM AMBULATORY - NONE [facility] Oct 12, 2024 08:00 AM AMBULATORY - MEDICINE [facility] Oct 12, 2024 08:40 AM AMBULATORY - MEDICINE [facility] Vital Signs: All taken on the encounter date This section contains inpatient and outpatient Vital Signs collected on the date of the Encounter. Date/Time Temperature Pulse Blood Pressure Respiratory Rate SP02 Pain Height Weight Body Mass Index Source May 18, 2024 10:48 AM 97.8 60 117/72 95 200.7 29 [facility] Social History: Smoking Status (Most current) and Tobacco Use (All prior to encounter date) This section includes the most current, and the historical, smoking and tobacco- related health factors from the [place] facility where the Encounter took place. Current Smoking Status This section includes the most current smoking, or tobacco-related health factor, from the [place] facility where the Encounter took place. Date/Time Current Smoking Status Comment Allan cantu Apr 10, 2024 11:00 AM FORMER SMOKER - <1 00 LIFETIME CIGARETTES [facility] Tobacco Use History This section includes a history of the smoking, or tobacco-related health factors, that were collected on or before the date of the Encounter. The data comes from the [place] facility where the Encounter took place. Date/Time Smoking Status/Tobacco Use Comment F acility Mar 07, 2023 10:00 AM HI-TOBACCO FORMER USER [facility] Mar 07, 2023 10:00 AM HI-TOBACCO QUIT 15 YRS OR MORE [facility] Mar 16, 2022 08:30 AM VA-TOBACCO FORMER USER [facility] Mar 16, 2022 08:30 AM HI-TOBACCO QUIT 15 YRS OR MORE [facility] February 13, 2021 10:00 AM HI-TOBACCO NEVER USED [facility] Mar 21, 2020 11:28 AM VA-TOBACCO NEVER USED [facility] Mar 25, 2019 01:07 PM HI-TOBACCO NEVER USED [facility] February 14, 2018 02:54 PM LIFETIME NON-TOBACCO USER [facility] Mar 08, 2017 11:18 AM LIFETIME NON-TOBACCO USER [facility] Jan 23, 2016 08:04 AM LIFETIME NON-TOBACCO USER [facility] Aug 02, 2014 10:35 AM FORMER TOBACCO USER 7Y OR CY R [facility] Jul 31, 2013 09:53 AM FORMER TOBACCO USER 7Y OR CY R [facility] Encounter Notes: All associated encounter notes This section contains the clinical notes associated to the Encounter. Date/Time Encounter Note(s) Provider Source May 18, 2024 04:55 PM NURSING TELEPHONE ENCOUNTER NOTE: LOCAL TITLE: NURSING POST DISCHARGE TELEPHONE STANDARD TITLE: NURSING TELEPHONE ENCOUNTER NOTE DATE OF NOTE: MAY 18, 2024@16:55 ENTRY DATE: MAY 18, 2024@16:55:17 AUTHOR: MAC RAMIREZ COSIGNER: URGENCY: STATUS: COMPLETED Discharge Length of call with : 5-10 minutes Date of Discharge: May Discharged from: Other facility: [facility] ER in [place], [place] Diagnosis: unknown (hypotension?) Assessment post discharge: stable Reviewed scheduled appointments: MAY 18, 2024@10:45:00 Clinic: [facility] 690 MAY 18, 2024@11:00:00 Clinic: [facility] N[facility] 692 JUL 08, 2024@11:30:00 Clinic: [facility] DIETITIAN TELEPHONE 1 OCT 12, 2024@08:00:00 Clinic: [facility] PACT POPPY1 OCT 12, 2024@08:40:00 Clinic: [facility] Confirmed that patient has the Call Center Contact information and the after hours number to use if there are any concerns. Amy was seen at [facility] emergency room in [place], [place] on 05/11/24 for what appears to be low blood pressure. Unfortunately notes from [facility] have been requested multiple times but still have not been received. Unfortunately engineering technical writer cannot see full discharge notes at this time so unable to verify what has all been done in the emergency room but amy is still concerned regarding his blood pressure. Amy does have a history of paroxysmal atrial fibrillation as well as aortic stenosis. He is currently prescribed to take 100 mg BID of metoprolol tartrate as well as 10 mg of amlodipine daily. According to amy, when he was in the ED, here's metoprolol tartrate was cut in half so that he is currently prescribed to be taking 50 mg BID. He reports that no changes were made with his amlodipine and continues to be taking the 10 mg daily. Amy has been tracking his blood pressure at home since his ER visit and reports the following readings: Date BP P 05/13/24 110/60 55 05/14/24 110/63 55 05/15/24 106/65 52 05/16/24 115/70 54 05/17/24 119/68 65 05/18/24 121/71 63 05/18/24 107/69 59 Amy reports overall no other concerns. He is wondering if perhaps his blood pressure is still too low and wondering what he should be doing. Amy was encouraged that he should make sure that he is getting plenty of fluid intake and states that he does not feel like he is dehydrated. Padding Gluer did consult with PCP Emili Fisher to further explain situation. PCP would like for amy to cut his amlodipine in half so that he is taking 5 mg daily of his amlodipine in addition to continuing to take 50 mg BID of his metoprolol tartrate. Amy verbalized understanding and stated that he would do so. PCP is aware that full DC notes from [facility] have not yet been received as well. Amy was encouraged to continue to monitor [...] in which he also verbalized understanding too. Amy was instructed to very closely monitor the labels on his prescription bottles since he might get a new dosage in the mail of his current blood pressure medications in which verbalized understanding to. *Alerting PCP Emili Fisher for cosign as well as to please make appropriate medication adjustments as follows, if still appropriate: 1. 50 mg BID of Metoprolol Tartrate 2. 5mg daily of Amlodipine /zach/ MAC RAMIREZ REGISTERED NURSE Signed: 05/18/2024 17:05 Receipt Acknowledged By: 05/19/2024 08:20 /zach/ EMILI FISHER APRN, DNP,DIRECTOR OF REIMBURSEMENT-C JAMES,MAC Alt[place]irano [facility]
--- OUTSIDE RECORDS SUMMARY | 2024-09-23 07:54 | XMS_ITS | Encounter Summary ---
Author Name [facility] [place] Organization [place] Address [address] [place] [address] Care Team Providers Care African History Professor Name Role Phone ANAY AVALOS Primary Care [...] PART A Jul 07, 2013 PART A [id number] [phone] ARLETH SANTAMARIA PATIENT MEDICARE (WNR) MEDICARE (M) PART A Jul 07, 2013 PART A [id number] ARLETH SANTAMARIA PATIENT Selected Encounter This section includes the information on record at [place] for the Encounter. Date/Time Encounter Type Encounter Description Reason Pro vider Source February 05, 2024 01:59 PM Outpatient Encounter COMMUNITY CARE CONSULT IHE [...] 05, 2024 09:10 AM AMBULATORY - NONE [facility] Mar 17, 2024 03:40 PM AMBULATORY - NONE [facility] Apr 10, 2024 11:00 AM AMBULATORY - MEDICINE [facility] Apr 13, 2024 09:20 AM AMBULATORY - MEDICINE [facility] May 12, 2024 12:24 PM AMBULATORY - NONE [facility] May 18, 2024 10:45 AM AMBULATORY - MEDICINE [facility] May 18, 2024 11:00 AM AMBULATORY - MEDICINE [facility] Jul 03, 2024 10:45 AM AMBULATORY - MEDICINE [facility] Jul 08, 2024 11:30 AM AMBULATORY - NONE [facility] Jul 10, 2024 11:30 AM AMBULATORY - NONE [facility] Social History: Smoking Status (Most current) and Tobacco Use (All prior to encounter date) This section includes the most current, and the historical, smoking and tobacco- related health factors from the [place] facility where the Encounter took place. Current Smoking Status This section includes the most current smoking, or tobacco-related health factor, from the [place] facility where the Encounter took place. Date/Time Current Smoking Status Comment Facil ity Mar 29, 2016 05:20 AM INPT NO TOBACCO USE IN LAST 30 D [facility] Encounter Notes: All associated encounter notes This section contains the clinical notes associated to the Encounter. Date/Time Encounter Note(s) Provider Source February 05, 2024 01:59 PM NONVA NOTE: LOCAL TITLE: COMMUNITY CARE-REQUEST FOR SERVICE NOTE STANDARD TITLE: NONVA NOTE DATE OF NOTE: FEBRUARY 05, 2024@13:59 ENTRY DATE: FEBRUARY 05, 2024@14:00:03 AUTHOR: SUZANNE MATOS EXP COSIGNER: URGENCY: STATUS: COMPLETED General RFS Approval : Continuation of same services PACT: Please address Received referral for additional services from patient's [facility] provider. Most recent referral expires/d on 01/29/2024. Please see RFS and notes uploaded to [facility] consult #[id number] dated 03/07/2023 for details RFS and records uploaded to [facility] note dated 02/04/2024. Place new consult if clinically indicated, thank you. /zach/ SUZANNE MATOS MSN, RN- COMMUNITY NEWSPAPER MANAGER Signed: 02/05/2024 14:01 Receipt Acknowledged By: 02/05/2024 14:51 /zach/ ANAY AVALOS APRN, DNP,SCROLL MACHINE OPERATOR-C [place],SUZANNE Aguilar [facility]
--- OUTSIDE RECORDS SUMMARY | 2024-09-23 07:54 | XMS_ITS | Encounter Summary ---
Author Name [facility] [place] Organization [facility] [place] Address [address] [place] [id number] Care Team Providers Care Facsimile Operator Name Role Phone ANAY AVALOS Primary [...] PART A Jul 07, 2013 PART A [id number] [phone] ARLETH SANTAMARIA PATIENT MEDICARE (WNR) MEDICARE (M) PART A Jul 07, 2013 PART A [id number] ARLETH SANTAMARIA PATIENT Selected Encounter This section includes the information on record at [place] for the Encounter. Date/Time Encounter Type Encounter Description Reason Provider Source May 11, 2024 10:08 AM Outpatient Encounter TELEPHONE TRIAGE MARCK HE Encounter Template Text not used by [place] Plan of Treatment: Future Appointments (+ 6 [...] 20 appointments. The data comes from all [place] treatment facilities. Appointment Date/Time Appointment Type Appointme nt Facility Name May 12, 2024 12:24 PM AM[facility]ORY - NONE [facility] May 18, 2024 10:45 AM AMBULATORY - MEDICINE [facility] May 18, 2024 11:00 AM AM[facility]UL[facility] - [facility]ICINE [facility] Jul 03, 2024 10:45 AM AMBULATORY - MEDICINE [facility] Jul 08, 2024 11:30 AM AMBULATORY - NONE [facility] Jul 10, 2024 11:30 AM AMBULATORY - NONE [facility] Oct 12, 2024 08:00 AM AMBULATORY - MEDICINE [facility] Oct 12, 2024 08:40 AM AMBULATORY - MEDICINE [facility] Lab Results: +/- 30 days of the encounter This section includes the Chemistry and Hematology Lab Results on record with [place] for the patient. Radiology Reports and Pathology Reports are provided separately, in subsequent sections. Lab Results This section contains the Chemistry/Hematology Results that were resulted 30 days before or 30 daysafter the date of the Encounter. Date/Time Source Result Type Result - Unit Interpretation Reference Range Comment Apr 13, 2024 09:29 AM [facility] ALBUMIN/CREATININE RATIO URINE Specimen Type: URINE No comment entered. Ordering Provider: ANAY AVALOS Report Released Date/Time: Apr 10, 2024 11:32 AM Reporting Lab: [facility] [id number] Performing Lab: [facility] [id number] CREATININE,UR RANDOM 37.9 mg/dL L 58.0-161.0 ALB/CREAT RATIO,UR 20.6 mg/g{creat} <29.9 ALBUMIN,UR 7.8 mg/L <29.9 Apr 13, 2024 09:12 AM [facility] HEMOGLOBIN A1C Specimen Type: BLOOD Comment: [...] Apr 10, 2024 11:32 AM Reporting Lab: [facility] [id number] Performing Lab: [facility] [id number] HEMOGLOBIN A1C 8.3 H 4.0-6.0 Apr 13, 2024 09:12 AM [facility] LIPID PANEL,NON-FASTING Specimen Type: PLASMA No comment entered. Ordering Provider: ANAY AVALOS Report Released Date/Time: Apr 10, 2024 11:32 AM Reporting Lab: [facility] [id number] Performing Lab: [facility] [id number] CHOLESTEROL 130 mg/dL <199 .HDL 43 mg/dL >40 LDL CALCULATION 72 mg/dL <99 VLDL CALCULATION 15 mg/dL <29 NON HDL CHOLESTEROL 87 mg/dL <129 TRIG(NON FASTING) 73 mg/dL <149 Apr 13, 2024 09:12 AM [facility] CBC Specimen Type: BLOOD No comment entered. Ordering Provider: ANAY AVALOS Report Released Date/Time: Apr 10, 2024 11:32 AM Reporting Lab: [facility] [id number] Performing Lab: [facility] [id number] WBC 5.70 10*3/uL 4.0-11.0 RBC 4.78 10*6/uL 4.6-6.2 HGB 14.8 g/dL 13.5-17.9 HCT 44.9 41-54 MCV 93.9 fL 80-100 MCH 31.0 pg 27-33 MCHC 33.0 g/dL 32.0-37.5 PLT 146 10*3/uL L 150-400 MPV 11.4 fL H 7.4-10.4 RDW 13.2 11.5-14.5 Apr 13, 2024 09:12 AM [facility] COMPREHENSIVE METABOLIC PANEL+MG Specimen Type: PLASMA No comment entered. Ordering Provider: ANAY AVALOS Report Released Date/Time: Apr 10, 2024 11:32 AM Reporting Lab: [facility] [id number] Performing Lab: [facility] [phone] CREATININE 0.8 mg/dL 0.7-1.2 UREA NITROGEN 23 [...] and tobacco- related health factors from the [place] facility where the Encounter took place. Current Smoking Status This section includes the most current smoking, or tobacco-related health factor, from the [place] facility where the Encounter took place. Date/Time Current Smoking Status Comment Facil ity Mar 29, 2016 05:20 AM INPT NO TOBACCO USE IN LAST 30 D [facility] Encounter Notes: All associated encounter notes This section contains the clinical notes associated to the Encounter. Date/Time Encounter Note(s) Provider Source May 11, 2024 10:08 AM RN PROGRESS NOTE: LOCAL TITLE: CCC: CLINICAL TRIAGE STANDARD TITLE: RN PROGRESS NOTE DATE OF NOTE: MAY 11, 2024@10:08:59 ENTRY DATE: MAY 11, 2024@10:08:59 AUTHOR: MARCK HE EXP COSIGNER: URGENCY: STATUS: COMPLETED Patient Demographics Patient Name: MILI SANTAMARIA Patient Primary Address: [address] [place] [address] Patient Primary Phone: [phone] Patient : 1950 Patient Age: 73 Call Back Number: [phone] Caller/Recipient Relation to Patient: Self Emergency Contact: GRICEL SANTAMARIA Triage Summary Conducted triage/discussed symptoms Utilized the Triage Tool: Yes Chief Complaint: Fatigue System WHEN: Now Nurse's Recommendation / WHEN: Now System WHERE: Emergency department Nurse's Recommendation / WHERE: ED IN Nursing Plan and Disposition Referred patient to higher level of care Instructed to go to Emergency Room (ER) Nurse Summary Nurse Summary: Nursing Note PATIENT CONCERN/DURATION/ONSET: Pt reports gradual worsening fatigue onset 1 wk ago. Pt states his complains that he falls asleep and feeling sluggish. Pt reports that that was the only symptoms I had when my heart valve went bad. Pt states he is more fatigued with exertion, states he was weed whipping and was leaning against the fence several time which is not normal for him. Pt reports urinary frequency for the past 2 years. Pt denies dizziness, cp or sob. BP 96/61 HR 55 WHAT HAS PATIENT TRIED TO TREAT THE SYMPTOM: NA HISTORYPREVIOUS TREATMENT DM Afib WHAT IS PATIENT GOAL FOR THE CALL: Advice Was Care Now considered (TELE or VVC)? NA SAFETY TRAINER DISPOSITION Recommend ER for fatigue secondary to cardiac risk. Pt agrees to present to local ER. Best contact for is [phone] (Verified). This note was created by a [address] emission technician. Please do not alert this nurse by adding as a signer for future communications. Alerts are not monitored by this user, please reach out to [place] [employer] [facility] instead if indicated. Clinical Contact Center Codes Clinic/Location: [address] PHONE CCC RN Decision Support System Output: Triage Complete Triage Date: 05/11/2024, 10:00 AM Triage Note: Decision Support Tool Used: [employer] Phone Triage 11 May 2024 14:52:09 +0000 UTC Demographics 73 y/o Male Results CC: Fatigue Software suggested: Now Software suggested follow-up location: Emergency department Values and Measures SBP: 100 mmHg Pulse: 54 bpm Duration of CC: 1 Weeks Alerts 1) This pulse rate should be interpreted relative to typical pulse rate measurements for this patient. Positive Responses MEDS: taking prescription medications PMH: atrial fibrillation PMH: heart disease Negative Responses Denies: HPI: difficulty speaking, sudden onset Denies: HPI: difficulty walking Denies: HPI: difficulty with balance Denies: HPI: diplopia Denies: HPI: dysarthria, sudden onset Denies: HPI: dysphagia, sudden onset Denies: HPI: facial numbness, unilateral Denies: HPI: facial weakness, unilateral, sudden onset Denies: HPI: falling to one side Denies: HPI: has urinary catheter Denies: HPI: headache, severe Denies: HPI: melena Denies: HPI: mental status change, confusion Denies: HPI: numbness in one arm or hand, sudden onset Denies: HPI: numbness in one foot or leg, sudden onset Denies: HPI: seizure Denies: HPI: syncope Denies: HPI: unable to walk, sudden onset Denies: HPI: vertigo Denies: HPI: vision loss, unilateral Denies: HPI: vomiting Denies: HPI: weakness in one arm or hand, sudden onset Denies: HPI: weakness in one leg or foot, sudden onset Denies: HPI: weakness, sudden onset Denies: MEDS: digoxin Denies: PMH: aneurysm Denies: PMH: diabetes Denies: PMH: stroke or TIA Denies: PMH: UTI /es/ MARCK MELVINN,RN Registered Nurse, [facility] Signed: 05/11/2024 10:09 MARCK HE [facility]
== END 2024-09-23 09:40 | disposition home or self-care (01) ==
PROVIDERS: Visit Provider Chiropractor
DX: I25.10 Atherosclerotic heart disease of native coronary artery without angina pectoris (principal); I34.0 Nonrheumatic mitral (valve) insufficiency
CPT/HCPCS: 93306